=== PATIENT | male | born 1950 | race Caucasian/White ===

== ENCOUNTER → 2023-12-04 10:41 | Outpatient (REF) | payer MEDICARE, BC, SELFPAY | LOC: HWRAD 10:41 | PROVIDERS: ATTENDING PHYSICIAN Specialist; FAMILY PHYSICIAN Family Medicine; REFERRING PHYSICIAN Surgery | DX: C23 Malignant neoplasm of gallbladder (principal) | CPT/HCPCS: 71260; 74177; Q9967 ==

== ENCOUNTER → 2023-12-15 14:44 | Outpatient (REF) | payer MEDICARE, BC, SELFPAY ==
[2023-12-15 19:38] LABS: % Basophils 1.3 % (0-2); % Eosinophils 4.2 % (0-6); % Immature Granulocytes 1.1 % (0-0.5); % Lymphocytes 11.9 % (20.5-51.1); % Neutrophils 71.5 % (42.2-75.2); Absolute Basophils 0.1 10^3/uL (0-0.2); Absolute Eosinophils 0.4 10^3/uL (0-0.7); Absolute Immature Granulocytes 0.1 10^3/uL (0-0.05); Absolute Lymphocytes 1.1 10^3/uL (1.2-3.4); Absolute Monocytes 0.9 10^3/uL (0.1-0.6); Absolute Neutrophils 6.4 10^3/uL (1.4-6.5); Mean Corpuscular Hgb 27.5 pg (27.0-31.0); Mean Corpuscular Volume 88.7 fL (80.0-94.0); Mean Platelet Volume 12.7 fL (7.4-10.4); Nucleated Red Blood Cells % 0 % (-); Platelet Count 307 10^3/uL (130-400); Red Blood Cell Count 3.27 10^6/uL (4.70-6.10); Red Cell Dist. Width 15.9 % (11.5-14.5); White Blood Cell Count 8.9 10^3/uL (4.8-10.8)
== END ==
LOC: CLAB 14:44
PROVIDERS: ATTENDING PHYSICIAN Family Medicine
DX: C23 Malignant neoplasm of gallbladder (principal)
CPT/HCPCS: 36415; 85025

== ENCOUNTER → 2023-12-29 11:45 | Outpatient (REF) | payer MEDICARE, BC, SELFPAY | LOC: HWRAD 11:45 | PROVIDERS: ATTENDING PHYSICIAN Student in an Organized Health Care Education/Training Program; FAMILY PHYSICIAN Family Medicine; OTHER PHYSICIAN Specialist | DX: C24.0 Malignant neoplasm of extrahepatic bile duct (principal) | CPT/HCPCS: 74176 ==

== ENCOUNTER → 2023-12-30 06:55 | Outpatient (REF) | payer MEDICARE, BC, SELFPAY ==
[2023-12-30 09:33] LABS: ALT (SGPT) 15 U/L (0-50); AST (SGOT) 27 U/L (17-59); Alkaline Phosphatase 137 U/L (38-126); Blood Urea Nitrogen 19 mg/dl (9-20); Calcium 9.3 mg/dl (8.4-10.2); Carbon Dioxide 30 mmol/L (22-30); Chloride 99 mmol/L (98-107); Glucose 166 mg/dl (70-99); HDL Cholesterol 67 mg/dl; LDL Cholesterol, Calculated 87 mg/dl; Potassium 4.9 mmol/L (3.5-5.1); Sodium 134 mmol/L (135-145); Total Bilirubin 0.9 mg/dl (0.2-1.3); Total Cholesterol 177 mg/dl (50-199); Total Protein 6.9 g/dl (6.3-8.2); Triglyceride 115 mg/dl (10-149); Very Low Density Lipoprotein 23 mg/dl (0-30); eGFR > 60.00
[2023-12-30 11:52] LABS: Glycohemoglobin (HgbA1c) 7.8 % (4.0-5.6)
== END ==
LOC: HWLAB 06:55
PROVIDERS: ATTENDING PHYSICIAN Family Medicine; REFERRING PHYSICIAN Specialist
DX: E11.69 Type 2 diabetes mellitus with other specified complication (principal); E78.2 Mixed hyperlipidemia
CPT/HCPCS: 36415; 80053; 80061; 83036

== ENCOUNTER → 2024-02-09 15:25 | Outpatient (REF) | payer MEDICARE, BC, SELFPAY | LOC: RAD 15:25 | PROVIDERS: ATTENDING PHYSICIAN Family Medicine; REFERRING PHYSICIAN Registered Nurse Oncology | DX: M79.605 Pain in left leg (principal); R60.0 Localized edema; M25.552 Pain in left hip; C23 Malignant neoplasm of gallbladder; C77.2 Secondary and unspecified malignant neoplasm of intra-abdominal lymph nodes | CPT/HCPCS: 73502; 93970 ==

== ENCOUNTER 2024-05-17 03:08 | Inpatient (IN) | payer MEDICARE, BC, SELFPAY ==
[2024-05-17] VITALS (76 sets, daily range): BP systolic 82–147; BP diastolic 36–87; BMI 26.3; BMI 26.5
--- NOTE | 2024-05-17 01:13 | ED.GENMED ---
History of Present Illness
General
Chief Complaint: Abdominal Symptoms
Source: patient
Exam Limitations: none
Time Seen by Provider: 05/17/24 01:00
History of Present Illness
History of Present Illness:
This is a 74 year old male that comes in by ambulance with c/o SOB. States that he started mid day with abd pain that got worse and worse. Then around the same time he started with some SOB but it was not that bad. States that he has a fever with
chills, SOB nausea, vomiting. Denies any chest pain, abd pain, diarrhea, headache, dizziness, urinary burning.
Past History
Past History
ED Past Medical History: Arrthythmia (Atrial fib), Cancer ([place]), GERD, HTN, Hypercholesterolemia, NIDDM, Psychiatric (Depression) and Other (Sleep apnea uses CPAP, Pericarditis, Kidney failure, Pulmonary edema, Ascites. Iron def anemia. )
ED Past Surgical History: Other (Deviated septum. Septoplasty, Turbinectomy, Stents X 2 in bile duct)
Social History
Tobacco: Non-smoker
Alcohol: None
Drug: None
Personal:
Living: with family
Review of Systems
Review of Systems
All Other Systems: ROS reviewed and negative except as documented in HPI and ROS
Constitutional: Reports fever and chills
EENT: Reports no symptoms
Respiratory: Reports trouble breathing; Denies cough
Cardiac: Denies chest pain
ABD/GI: Reports abdominal pain, nausea and vomiting; Denies diarrhea
: Reports no symptoms; Denies dysuria, frequency or urgency
Musculoskeletal: Reports no symptoms
Skin: Reports no symptoms
Neurological: Reports no symptoms; Denies dizzy or headache
Psychiatric: Reports no symptoms
Phy Exam
General Physical Exam
General Presentation: mild distress
General age: appears stated age
General Skin: warm and dry
General Habitus: elderly
General Mental: alert
General Hydration: appears well hydrated
ENT Exam
ENT Exam: TM's normal, pharynx normal and neck supple
Eye Exam
Eye Exam: EOMI
Cardiovascular Exam
Cardiovascular Exam: regular rate/rhythm and normal peripheral pulses
Pulmonary Exam
Pulmonary Exam: no rales, no crackles, no rhonchi, no wheezing, no cough and decreased breath sounds (at bases bilaterally, )
Gastrointestinal Exam
Gastrointestinal Exam: non tender, soft, no organomegaly, no pulsatile mass, non distended and other (No bowel sounds noted)
Musculoskeletal Exam
Musculoskeletal Exam: full ROM and edema (+2 pitting edema from feet into the thighs)
Skin Exam
Skin Exam: normal color, warm/dry, no rash and no petechia
Psychiatric Exam
Psychiatric Exam: normal mood/affect
Course
Orders/Labs/Results
Orders:
Orders
05/17/24 01:21
Complete Blood Count/With Diff Urgent
Comprehensive Metabolic Panel Urgent
D-Dimer Urgent
Lactic Acid Urgent
NT-proBNP Urgent
Troponin I Urgent
Blood Culture Urgent
LENNIE Source: Blood/Venous
Specimen Description:
05/17/24 01:45
0.9% Sodium Chloride 1000 ml [Nss] 2,000 ml IV BOLUS
05/17/24 02:02
CR Chest Portable - 1 View Urgent
Comment:
Reason For Exam: SOB
Reason Study Needs to be Portable: Unable to Transport
05/17/24 02:10
Piperacillin/Tazo 3.375 Gram [Zosyn] 3.375 gram in 50 ml IV NOW
Vancomycin 1 Gram/200 ml [Vancocin] 1 gram in 200 ml IV NOW
05/17/24 02:17
CT Chest Pe Study Urgent
Comment:
Reason For Exam: SOB, Elevated D-dimer
05/17/24 02:21
COVID-19 Antigen Urgent
Source: Nasal Swab
05/17/24 02:37
Procalcitonin Routine
PCT Algorithmm Indication: Respiratory
05/17/24 02:54
Admit/Transfer Patient As Directed
Co-Sign Provider:
Level of Care: Inpatient admission
Assign to:: ICU
Physician / Group: breny
Diagnosis: Severe sepsis, acute hypoxic RF, susect acute cholangitis, suspect asp PNA
Reason for Hospitalization: Severe sepsis, acute hypoxic RF, susect acute cholangitis, suspect asp PNA
Expected length of stay greater than two midnights?: Yes
ELOS- Estimated Length of Stay in days: 6
I certify the patient meets the requirements for IP care: Yes
PRN Pain Medication Management As Directed
May give lesser potent ordered pain med per pt: Yes
preference::
Protocol:: Medication orders for pain may be administered in a
manner that supports deferring to patient preference
when the pt is:
- Requesting an ordered lesser potent pain medication.
Least to most potent pain medications are defined
as: acetaminophen < NSAID < tramadol < opioids
(morphine, oxycodone, hydromorphone).
- Requesting a lesser dose of the same medication IF
ORDERED.
- Requesting a less intrusive route of administration
if both routes are prescribed by the provider (PO <
IV).
05/17/24 02:56
Code Status As Directed
Resuscitation Status: Full Code
05/17/24 05:40
Dextrose 50%-Water [Dextrose 50% Syringe] 12.5 grams IV P80BMEC PRN
Glucagon [GlucaGen] 1 mg IM PRN PRN
Lactated Ringers [Lr] 1,000 ml IV 100 mls/hr
VANCOMYCIN Pharmacy to Dose [VANCOCIN Pharmacy to Dose] 1 each Pharmacy To Prepare [Call Pharmacy To Prepare] 0 ml IV PER PROTOCOL
05/17/24 05:40
Consult Notification Routine
Specialty to Notify: Gastroenterology
Date consulting provider notified: 05/17/24
Time consulting provider notified: 08:19
Notified:: Provider
Consult Notification Routine
Specialty to Notify: Infectious Disease
Date consulting provider notified: 05/17/24
Time consulting provider notified: 08:18
Notified:: Provider
Consult Notification Routine
Specialty to Notify: Asset Liability Analyst
Date consulting provider notified: 05/17/24
Time consulting provider notified: 08:19
Notified:: Provider
GASTROINTESTINAL CONSULT Routine
Consulting Provider: Lang [place]
Was physician already notified: No
Reason for consult: Severe sepsis, acute hypoxic RF, susect acute cholangitis, suspect asp PNA
INFECTIOUS DISEASE CONSULT Routine
Consulting Provider: Efe Lama
Was physician already notified: No
Reason for consult: Severe sepsis, acute hypoxic RF, susect acute cholangitis, suspect asp PNA
Asset Liability Analyst Consult Routine
Consulting Provider: Yousif Smith
Was physician already notified: No
Reason for consult: Severe sepsis, acute hypoxic RF, susect acute cholangitis, suspect asp PNA
Activity As Directed
Activity Level: With Assistance
Bedside Glucose Monitoring As Directed
Frequency: AC&HS
Additional Instructions:: Change to q6h if pt on TPN, tube feeding or not eating
Intake/ Output As Directed
Frequency: Per unit guidelines
Pneumatic Compression Sleeves As Directed
Type: Knee high
Vital Signs As Directed
Frequency: Per unit guidelines
Weight As Directed
Frequency: Daily
DX Deep Vein Thrombosis Video Routine
05/17/24 05:53
Type+Screen IN AM
Glycohemoglobin (HgbA1c) IN AM
Lactic Acid Q4H
Comment: repeat q4 hours x 4 or until less than 2 mmol/L
05/17/24 Breakfast
Clear Liquid
At Your Request: Full Participation
05/17/24 07:30
Insulin Aspart Corrective Low [Novolog Flexpen-Low Resistance] See Protocol SC AC
05/17/24 10:00
Piperacillin/Tazo 3.375 Gram [Zosyn] 3.375 gram in 50 ml IV Q6H
Abnormal Lab Results
05/17/24 05/17/24
:21 02:37
WBC 16.1 H 10^3/uL
(4.8-10.8)
RBC 2.72 L 10^6/uL
(4.70-6.10)
Hgb 8.4 L g/dL
(13.0-18.0)
Hct 25.4 L %
(39.0-52.0)
RDW 19.8 H %
(11.5-14.5)
Plt Count 104 L 10^3/uL
(130-400)
MPV 11.7 H fL
(7.4-10.4)
Abs Immat Gran (auto) 0.3 H 10^3/uL
(0-0.05)
Absolute Neuts (auto) 15.0 H 10^3/uL
(1.4-6.5)
Absolute Lymphs (auto) 0.3 L 10^3/uL
(1.2-3.4)
Immature Gran % 1.6 H %
(0-0.5)
Neutrophils % 93.0 H %
(42.2-75.2)
Lymphocytes % 1.7 L %
(20.5-51.1)
D-Dimer > 20.00 H ug/mlFEU
(0.00-0.50)
BUN 26 H mg/dl
(9-20)
Glucose 130 H mg/dl
(70-99)
Lactic Acid 3.1 H mmol/L
(0.7-2.0)
Total Bilirubin 2.5 H mg/dl
(0.2-1.3)
AST 381 H U/L
(17-59)
ALT 165 H U/L
(0-50)
Alkaline Phosphatase > 2400 H U/L
(38-126)
Total Protein 5.6 L g/dl
(6.3-8.2)
Albumin 2.9 L g/dl
(3.5-5.0)
Procalcitonin 0.89 H ng/ml
(0.0-0.25)
05/17/24 01:21
05/17/24 01:21
Leukocytosis, H/H low. Thrombocytopenia, Dehydration. Glucose nonfasting. Lactic acid elevated at 3.1, Total medhat elevation. AST/ALT elevation. Alk phos >2400. Total protein low. Albumin low. D-dimer >20.00, Troponin <0.012, Pro-BNP 7260
Vital Signs
Initial and Last Documented VS:
Initial Vital Signs
Temp Pulse Resp BP Pulse Ox
100.4 F H 110 24 124/66 94
05/17/24 01:03 05/17/24 01:03 05/17/24 01:03 05/17/24 01:03 05/17/24 01:03
Last Documented Vital Signs
Temp Pulse Resp BP Pulse Ox
98.0 F 70 29 88/36 96
05/17/24 15:50 05/17/24 17:02 05/17/24 17:02 05/17/24 17:02 05/17/24 17:02
MDM/Problems Addressed
Differential Diagnosis Includes:
PNA. Pulmonary edema, PE
MDM/Problems Addressed:
This is a 74 year old male that comes in with c/o SOB. States that he had abd pain earlier today and this continued to get worse. Then he became SOB.
Will get labs. Chest x-ray. If D-dimer positive will get CT chest.
Chronic conditions affecting care:
Pulmonary edema,
Chronic conditions affecting care: Cancer
Acute Exacerbation and/or Progression of Chronic Illness: Cancer
*Radiology
Radiology exam reviewed: preliminary read by ED provider (Chest- Left and right Pneumonia with increased vascular congestion) and radiology read reviewed (Chest- CT-No evidence of pulmonary embolism. Moderate bilaeral pleural effusion with
associated compressive atelectasis. Mild pulmonary interstitial and alveolar edema. )
*Pulse Oximetry
Patient hypoxic: no (100% nonrebreather)
*[employer] Interpretation
Rate: tachycardiac
Heart Rate: 108
*Critical Care Note
Total Time (30-74mins, 75-104mins- exclusive of procedures): Not Applicable
ED Attending Note
-
Portions of this chart may have been created with voice recognition software.� Occasional wrong word or��sound alike� substitutions may have occurred due to the inherent limitations of voice recognition software.
Discharge Plan
Departure
Patient Disposition: Admit
Date of Disposition: 05/17/24
Time of Disposition: 02:41
Admit to: Telemetry
Presentation/result/management discussed w/ accepting MD/DO: Hospitalist
Patient with high blood pressure during this ER visit?: No
Condition: Good
Covid-19: Negative COVID-19
Discharge Problem:
Bilateral pneumonia, Elevated liver enzymes
Interventions
Interventions:
*Risk Screen - Suicide Last Done: 05/17/24 01:03
*General Assessment Last Done: 05/17/24 01:12
*Neglect/Abuse Screening Last Done: 05/17/24 01:12
*ED COVID-19 Vaccine History Last Done: 05/17/24 01:12
*Nursing Disposition Last Done: 05/17/24 05:38
KP-Zbhchs-Qpgmatbgrs Assessment Last Done: 05/17/24 01:45
Discharge Date and Time
Discharge Date/Time: 05/17/24 05:48
[2024-05-17 01:36] LABS: % Basophils 0.1 % (0-2); % Eosinophils 0.2 % (0-6); % Immature Granulocytes 1.6 % (0-0.5); % Lymphocytes 1.7 % (20.5-51.1); % Monocytes 3.4 % (1.7-9.3); Absolute Immature Granulocytes 0.3 10^3/uL (0-0.05); Absolute Lymphocytes 0.3 10^3/uL (1.2-3.4); Absolute Monocytes 0.5 10^3/uL (0.1-0.6); Hematocrit 25.4 % (39.0-52.0); Hemoglobin 8.4 g/dL (13.0-18.0); Mean Corp Hgb Conc. 33.1 g/dL (33.0-37.0); Mean Corpuscular Hgb 30.9 pg (27.0-31.0); Mean Corpuscular Volume 93.4 fL (80.0-94.0); Mean Platelet Volume 11.7 fL (7.4-10.4); Nucleated Red Blood Cells % 0 % (-); Platelet Count 104 10^3/uL (130-400); Red Blood Cell Count 2.72 10^6/uL (4.70-6.10); Red Cell Dist. Width 19.8 % (11.5-14.5); White Blood Cell Count 16.1 10^3/uL (4.8-10.8)
[2024-05-17 01:42] LABS: Lactic Acid 3.1 mmol/L (0.7-2.0)
[2024-05-17 01:43] LABS: ALT (SGPT) 165 U/L (0-50); AST (SGOT) 381 U/L (17-59); Albumin 2.9 g/dl (3.5-5.0); Blood Urea Nitrogen 26 mg/dl (9-20); Calcium 8.4 mg/dl (8.4-10.2); Carbon Dioxide 30 mmol/L (22-30); Chloride 100 mmol/L (98-107); Estimated Creatinine Clearance 54 ml/min; Glucose 130 mg/dl (70-99); Potassium 4.4 mmol/L (3.5-5.1); Sodium 137 mmol/L (135-145); Total Bilirubin 2.5 mg/dl (0.2-1.3); Total Protein 5.6 g/dl (6.3-8.2); eGFR > 60.00
[2024-05-17 01:52] LABS: Alkaline Phosphatase > 2400 U/L (38-126)
[2024-05-17 01:54] LABS: NT-proBNP 7260 pg/ml; Troponin I 0.012 ng/ml
[2024-05-17 01:59] LABS: D-Dimer > 20.00 ug/mlFEU (0.00-0.50)
[2024-05-17] MEDS: NSS 2000 IV (02:00)
[2024-05-17] MEDS: ZOSYN IV (02:24)
[2024-05-17] MEDS: VANCOCIN 200 IV ×2 (02:25→07:11)
--- NOTE | 2024-05-17 02:47 | HPS.HSE ---
Addendum entered and electronically signed by Shabbir Ga MD 05/17/24 04:22:
CT suggest mild interstitial edema and alveolar pulmonary edema
Significantly elevated pro BNP
Acute hypoxic RF require MFO2
Suspect acute HF unknown type
- IV Lasix 20 times once and observe POx
- f/u POx and wean O2 as able
- ECHO in AM
- DCA card consult
Addendum entered and electronically signed by Shabbir Ga MD 05/17/24 04:13:
CTC PE study
- No PE
- moderate b/l pleural effusion with compressive atelectasis
- mild interstitial edema and alveolar pulmonary edema
Original Note:
Family Physician
-
Family Physician: Lang Cochran
Chief Complaint
-
N/V/ SOB
History of Present Illness
HPI
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
SOB and acute hypoxic RF
- acute onset N/V and abdominal pain at SNF
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
- NRM --> POx 100 %
- Reports Fever with chills
At ER:
T100.4 RR24 POx 94 on MFO2 12 L HR 110 BP 125/65
BCx sent then IV vanco and Zosyn plus IV NS
ROS
Denies any chest pain, abd pain, diarrhea, headache, dizziness, urinary burning
Medical History
Past Medical History
Past Medical History: Reports Other
Additional Past Medical History:
Hypertension
DM-II
J CARLOS
Pericarditis
Anxiety / Depression
Past Surgical History: Reports Other
Additional Past Surgical History:
Nasal Turbinate Surgery
Trigger Finger Release
Social History
Tobacco: Non-smoker
Alcohol: None
Drug: None
Personal:
Living: With Family
Family History
Family History: Not pertinent
Allergies / Home Medications
Allergies reflects when Allergies were last updated in [facility].
Home Medications with original date entered in [facility]
Allergy/Medication List:
Allergies
Allergy/AdvReac Type Severity Reaction Status Date / Time
ibuprofen Allergy abdominal Verified 10/13/23 17:25
pain
NSAIDS (Non-Steroidal Allergy Unknown Verified 10/13/23 17:25
Anti-Inflamma
Home Medications
pravastatin 40 mg tablet 40 mg PO HS High Cholesterol 09/27/09
duloxetine 20 mg capsule,delayed release (Cymbalta) 20 mg PO DAILY Depression 09/20/23
gabapentin 300 mg capsule 600 mg PO HS Neurological Condition 09/20/23
glipizide 2.5 mg tablet 2.5 mg PO DAILY Diabetes 09/20/23
aspirin 81 mg tablet,delayed release 81 mg PO DAILY 09/23/23
glipizide 2.5 mg tablet, extended release 24 hr 5 mg PO QPM 09/23/23
lisinopril 5 mg tablet 5 mg PO DAILY 09/23/23
metformin 500 mg tablet,extended release 24 hr 1,000 mg PO BID@0800,1700 09/23/23
pioglitazone 15 mg tablet (Actos) 15 mg PO DAILY 09/23/23
multivitamin 1 mg PO DAILY 10/13/23
Review of Systems
-
Constitutional: Reports Fever and Chills
EENT: Reports No Symptoms
Respiratory: Reports No Symptoms
Cardiac: Reports No Symptoms
Abdomen/GI: Reports See HPI, Abdominal Pain, Nausea and Vomiting
: Reports No Symptoms
Musculoskeletal: Reports No Symptoms
Skin: Reports No Symptoms
Neurological: Reports No Symptoms
Endocrine: Reports No Symptoms
Hematologic/Lymphatic: Reports No Symptoms
Psych: Reports No Symptoms
Physical Exam
Vital Signs
Vital Signs
Temp Pulse Resp BP Pulse Ox
100.4 F H 101 25 124/66 100
05/17/24 01:03 05/17/24 02:14 05/17/24 02:14 05/17/24 01:03 05/17/24 02:14
Physical Exam
General: Well Developed and Conversant
HEENT: Moist mucous membranes
Respiratory: Clear and Other (PORT at Lt upper chest ); No Wheezes, Rales or Rhonchi
Cardiac: S1/S2 and Regular Rhythm
Breast: Deferred by me
GI: Soft, Non Tender and Non Distended
Genito-urinary: Deferred by me
Musculoskeletal: No Edema
Skin: Warm and Dry
Neuro: AO x 3
Psych: Calm
Laboratory Results
-
05/17/24 01:21
05/17/24 01:21
Laboratory Results
Lactic Acid 3.1 mmol/L (0.7-2.0) H 05/17/24 01:21
Total Bilirubin 2.5 mg/dl (0.2-1.3) H 05/17/24 01:21
AST 381 U/L (17-59) H 05/17/24 01:21
ALT 165 U/L (0-50) H 05/17/24 01:21
Alkaline Phosphatase > 2400 U/L (38-126) H 05/17/24 01:21
Troponin I 0.012 ng/ml 05/17/24 01:21
Data Reviewed
-
CT Scan: Discussed with Physician
Lab Data: Labs Reviewed by me
Old Records: Reviewed
Impression/Plan
-
Reviewed VS: T100.4 RR24 POx 94 on MFO2 12 L HR 110 BP 125/65
Data
WCC 16s
Hgb 8.4 - baseline 9s-10s
Plt 104 -baseline 150s
DD > 20
LA 3.1
Pending PCT
TB 2.5
AST 381 - 27 on 12/30/23 but 200s in 2022
AST 165 - 15 on 12/30/23 but mid 200s in 2022
AKP > 2400 340s on 12/30/23
NEG TPNI
pro BNP 7260
BUN 26
nl eGFR > 60
Pending Covid
CXR my view R LL PNA ?
Pending CTC PE study
Last hospitalist admission: 10/13/23 - 10/17/23 PDX:
IR percutaneous cholecystotomy drain placement
ERCP/stone extraction, stent placement and biopsy.
ASSESSMENT & PLAN
Pending Rx reconciliation
Clinically c/w severe sepsis Plus or minus bacteremia
Diff origins: acute cholangitis , possible PNA @ [facility] due to aspiration from acute emesis
No prior data MRS screen
- check PCT
- BC xsent
- cont. MFO2
- agree with IV vancomycin & Zosyn
- LR IVF
- Clear and ADAT
- ID consult
Acute hypoxic RF require MFO2; suspect mutfactorial origin
Significant D Dimer likely due to CCA
- Agree with CTC PE study
- Pul/ICU consult
Abn LFTS suspect cholestatic pastern due to acute cholangitis
HX Biliary stent
Underlying cholangio CA (CCA)
- Clear and IVF
- Trend LFts
- GI consult
Associated thrombocytopenia with worsening ACDz due to severe sepsis
- Trend CBC
At rsik for septic shock
Benign Hypertension
- held lisinopril
DMT2
- Hold PO medications acutely.
- add Low SSI
DVT Px: SCD
Code: Fulll code
ICU
Total Critical Care Time_55 ___ minutes.
I was immediately available to the patient and staff. I personally examined, reviewed labs, diagnostic images/reports, interpretations, treatment plans, discussed patient care with other providers and family or caregivers (if patient is unable
to make decisions), entered orders as appropriate and documented the medical record.
[2024-05-17 03:06] LABS: COVID-19 Antigen Negative (Negative)
[2024-05-17] MEDS: ZOSYN 50 IV ×4 (03:35→21:08)
[2024-05-17] MEDS: LASIX 20 MG IV (05:01)
--- NOTE | 2024-05-17 06:00 | W.PN.SEPSIS ---
Sepsis
Vital Signs
Temp Pulse Resp BP Pulse Ox
98.1 F 98 16 121/51 80
05/17/24 03:35 05/17/24 05:31 05/17/24 05:31 05/17/24 05:31 05/17/24 05:31
Physical Exam
Physical Exam:
A focused exam was performed after fluid resuscitation.
Capillary Refill
Bilateral Lower Extremity:
Krunal Time: Less than 3 sec
Pulse Evaluation
Bilateral Dorsalis Pedis:
Pulse Evaluation: Present
--- NOTE | 2024-05-17 06:05 | W.PN.UPDATE ---
Update Note
Progress Note Update
2220 Increased oxygen needs overnight, started on high flow nasal cannula. 0415 notify by bedside nurse hemodynamics declining, (vasopressin added) Morning labs showed increased in LFTs and WBC, hgb drop to 7.0, type and sent, trending HH q 6, no
signs of bleeding noted. Hx of anemia.
[2024-05-17 06:17] LABS: INR 1.26; PT 15.7 Sec (11.4-14.6)
[2024-05-17 06:18] LABS: Lactic Acid 1.7 mmol/L (0.7-2.0)
[2024-05-17 06:19] LABS: Procalcitonin 0.89 ng/ml (0.0-0.25)
[2024-05-17 06:30] LABS: APTT 30.5 Sec (23.4-35.0)
--- NOTE | 2024-05-17 07:09 | PTCARENOTE ---
Received patient AAOx3, following commands, denying pain. Normal sinus, 80s-90s. BP 90s-100s/50s-70s. Normothermic. +3 b/l pitting lower extremity edema. SCDs on. On 12 liters midflow, saturating 100%. Lung sounds coarse anteriorly and decreased
posteriorly. Abdomen soft, round, positive bowel sounds. Bruising on lower abdomen POA. Voided 200 ml in urinal of clear, yellow urine. Last BM 2 days ago. MASD on buttocks, barrier ointment applied. Left lateral butt unstageable and stage 2 on left
heel POA, wound consulted. CHG bath done, labs sent. Right subcutaneous port accessed, patent, WNL. Right forearm #20 patent, WNL. Call reilly within reach.
--- NOTE | 2024-05-17 07:28 | CON.INTV ---
Consultation
Consultation Request
Date/Time Consultation Requested: 05/17/2024-8 AM
Date/Time Consultation Performed: 05/17/2024-8 AM
Requesting Provider: Hospitalist
Performing Provider: Dr. Fofana
Reason for Consultation: Hypoxemia and critical care management
Medical History
-
Chief Complaint: Shortness of breath and weakness
History of Present Illness:
74-year-old male with history of atrial fibrillation, hypertension, sleep apnea, restrictive lung disease and diabetes with a recent diagnosis of cholangiocarcinoma with stents status post chemo recently complicated by infection and returns with
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 He is feeling improved, however, still feels very weak. Nausea is improved. Blood pressure is improved with
fluids. He denies any shortness of breath at rest, chest pain, chest congestion, pleurisy, mopped assist, abdominal pain, nausea, current vomiting, lower extremity swelling beyond his baseline, or new weakness. He has generalized weakness. He
uses a CPAP at home.
Past Medical History
Past Medical History: None (Cholangiocarcinoma. Atrial fibrillation. Hypertension. Hyperlipidemia. Diabetes. Depression. J CARLOS on CPAP. Restrictive lung disease. Decreased diffusing capacity. Postnasal drip. Anemia. Septoplasty. Biliary
stenting x 2.)
Social History
Tobacco: Non-smoker
Alcohol: None
Drug: None
Personal:
Living: With Family
Employment: Retired ([employer]-emigrated from [facility])
Occupational Exposures: No known asbestos exposure
Environmental Exposures: No known tuberculosis exposure
Family History
Family History: Other (Mother breast cancer diabetes and CAD)
Allergies / Home Medications
Allergies
Allergy/AdvReac Type Severity Reaction Status Date / Time
ibuprofen Allergy abdominal Verified 10/13/23 23:27
pain
NSAIDS (Non-Steroidal Allergy Unknown Verified 10/13/23 23:27
Anti-Inflamma
Home Medications
�Medication �Instructions �Recorded �Confirmed �Last Taken �Type
pravastatin 40 mg tablet 40 mg PO QPM High Cholesterol 09/27/09 05/17/24 10/12/23 History
duloxetine 20 mg capsule,delayed 20 mg PO BID Depression 09/20/23 05/17/24 11/12/23 History
release (Cymbalta)
therapeutic multivitamin 1 tab PO DAILY 10/13/23 05/17/24 10/12/23 History
amiodarone 200 mg tablet 200 mg PO DAILY 05/17/24 05/17/24 Unknown History
carvedilol 12.5 mg tablet 12.5 mg PO BID 05/17/24 05/17/24 Unknown History
ferrous sulfate 325 mg (65 mg 325 mg PO DAILY 05/17/24 05/17/24 Unknown History
iron) tablet
furosemide 40 mg tablet (Lasix) 40 mg PO DAILY 05/17/24 05/17/24 Unknown History
hydralazine 10 mg tablet 10 mg PO TID 05/17/24 05/17/24 Unknown History
insulin glargine 100 unit/mL (3 14 unit SC HS 05/17/24 05/17/24 Unknown History
mL) subcutaneous pen
insulin lispro 100 unit/mL 1 sliding scale dose SC DIRECTED 05/17/24 05/17/24 Unknown History
subcutaneous pen
ipratropium bromide 0.02 % 2.5 ml inhalation Q6H PRN SOB 05/17/24 05/17/24 Unknown History
solution for inhalation
melatonin 3 mg tablet 3 mg PO HS 05/17/24 05/17/24 Unknown History
pantoprazole 20 mg tablet,delayed 40 mg PO DAILY 05/17/24 05/17/24 Unknown History
release
Review of Systems
-
Unable to Obtain full review of systems at this time due to: Other (Per HPI)
Vitals / Labs / Diagnostic Testing
Vital Signs
Temp Pulse Resp BP Pulse Ox
97.9 F 84 20 108/51 95
05/17/24 06:44 05/17/24 06:30 05/17/24 06:30 05/17/24 06:13 05/17/24 07:22
Lab Data
05/17/24 01:21
05/17/24 01:21
Laboratory Results
05/17/24
05:53
PT 15.7 H
INR 1.26
APTT 30.5
Diagnostic Testing:
Physical Exam
-
Exam:
Well-nourished and well-developed in no apparent distress
HEENT-atraumatic, normocephalic
Neck-supple, no JVD, no bruit
Heart-regular rate and rhythm-no murmurs, rubs or gallops
Chest-clear to auscultation, no wheezes, crackles, decreased breath sounds at the bases
Back-no tenderness
Abdomen-soft, nontender, nondistended, no hepatosplenomegaly
Extremities-no cyanosis, clubbing, +1 edema
Integument-intact, no rashes, lesions or ecchymosis
Neurology-alert and oriented, nonfocal motor and sensory exam
Assessment
-
74-year-old male with history of atrial fibrillation, hypertension, sleep apnea, restrictive lung disease and diabetes with a recent diagnosis of cholangiocarcinoma with stents status post chemo recently complicated by infection and returns with
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
Sepsis with shock unresponsive to fluids requiring pressors
Leukocytosis-WBC 16.1
CHF with reduced EF
Bilateral right greater than left pleural effusion
Anemia-hemoglobin 8.4-normocytic
Thrombocytopenia-platelet 104
Mild hyperglycemia
Elevated LFTs
Hypoalbuminemia
Conditions present prior to admission:
Cholangiocarcinoma.
Atrial fibrillation.
Hypertension.
Hyperlipidemia.
Diabetes.
Depression.
J CARLOS on CPAP.
Restrictive lung disease.
Decreased diffusing capacity.
Postnasal drip.
Anemia.
Septoplasty. Biliary stenting x 2.
Plan
Admit patient to medical intensive care unit for persistent hypotension despite fluid resuscitation requiring pressors
Supplement oxygen as needed
High flow oxygen if needed
BiPAP if necessary
Intubate and mechanically ventilate if necessary
Aspiration precautions
Nebulizers if needed
Obtain cultures
Empiric antibiotics
Consider Infectious disease consultation
Monitor leukocytosis
Fluid resuscitation with 30 mL/kg crystalloid-preferably lactated ringer-(less SUDHIR) with subsequent boluses as needed
Monitor lactate
Follow CVP if possible
Attempt noninvasive bedside tissue perfusion evaluation to see if fluid bolus responsive
Measure pulse pressure and stroke volume variation if patient on ventilator, passively breathing without arrhythmia and with temporary large tidal volume ventilation and if > 13% then likely fluid bolus responsive
If patient active then consider measuring bedside leg lift for 3 minutes and if cardiac output increases or if there is a rise of 2-4 on end-tidal CO2 then fluid bolus
If bedside ultrasound available then measure IVC diameter variation to evaluate for fluid bolus responsiveness
Begin pressors as needed for MAP goal of 65-Norepinephrine first, then Vasopressin and consider Angiotensin II if continues to be hypotensive
Consider methylene blue if available-specific inhibitor of induced nitric oxide synthase iNOS and its downstream enzyme soluble guanylate cyclase-noninferiority study shown to reduce time to vasopressor discontinuation, decreased ICU length of stay,
hospital stay but no change in mortality-published Critical Care 01/06/2023
If persistently hypotensive then consider checking random cortisol-hydrocortisone if random less than 3, if 3-15 then consider ACTH stimulation test
If persistently hyperthermic then correcting hyperthermia can decrease pressor requirements, increased chances of reversal of shock and decrease mortality
Diuresis as tolerated
Check echocardiogram
Trend troponin
Monitor renal function, electrolytes, intake/output, lower extremity edema and weight
Replace electrolytes as needed
Thoracentesis-right and then consider left as well-diagnostic and therapeutic
Monitor blood sugar
Insulin supplementation as needed
Monitor LFTs
GI evaluation
DVT prophylaxis
Early nutrition if possible
Early mobilization/bedside range of motion
Outpatient oncology [id number] to resume chemotherapy once infections under control
Patient was last seen pulmonary/sleep disorders office 04/22/[address] Fofana and has a follow-up appointment 05/27/2024 at 1015 with Kae Garcia NP
Critical care statement: A total of 55 minutes of critical care time was provided for this patient today. This includes management of unstable vital signs, evaluation of the patient at bedside, reviewing the patient's pertinent medical records
including radiographs, pressor management, microbiology, laboratory evaluations, and discussion with primary team, consultants, pharmacy, nutrition, physical therapy, case management, charge nurse, critical care nursing, and respiratory therapy.
Diagnostic data:
Chest x-ray 05/17/2024-pulmonary edema with small bilateral pleural effusions
CT chest with PE protocol 10/24/20--no Pulmonary Embolism, no significant other abnormalities,Patient notified.
CT chest abdomen and pelvis 12/04/2023-multiple fluid collections in perihepatic region including collection within the gallbladder fossa, no evidence for metastatic disease in the chest abdomen or pelvis, mild prostate enlargement
Lower extremity ultrasound 02/09/2024-no evidence for lower extremity deep venous thrombosis
Stress echocardiogram 06/12/20--no EKG or echocardiographic evidence of myocardial ischemia, lightheadedness and shortness of breath with exercise which resolved in recovery, overall low to intermediate risk study.
Spirometry 09/20/20--FEV1 2.3 L-77%, FVC 2.92 L-71%, no significant BD response. Mild restriction.
PFT 11/10/20--FEV1 2.7 L-91%, FVC 3.3, 1 L-79%, TLC 68%, RV 45%, DLCO 83%. Mild restriction and mild reduction in diffusing capacity.
Spirometry 09/26/21-FEV1 2.29 L, 88%, FVC 2.78 L-80%, no significant BD response. Mild restriction.
PFT 11/14/22-FEV1 2.25 L-78%, FVC 2.5 L 69% , TLC 63%, RV 40%, DLCO 76%. Mild to moderate restriction and mild reduction in diffusing capacity
Spirometry 07/16/23-FEV1 2.2-91%, FVC 2.7-79%,No significant BD response. Mild restriction.
Originally diagnosed around 2006 PSG-AHI-20, desaturation hillary 86%, CPAP 9 cm
PSG 09/16/18--AHI-16.7, desaturation hillary 84%, 0.7% time <90% saturation.
Data Reviewed
-
PFT: Tracing personally visualized and interpreted and Report reviewed by me
EKG: Report reviewed by me
Radiology: Image personally visualized and interpreted and Report reviewed by me
CT Scan: Image personally visualized and interpreted and Report reviewed by me
Ultrasound: Report reviewed by me
Medical Tests (Nuc Med, Echo etc): Report reviewed by me
Labs: Labs reviewed by me
Old Records: Reviewed
Critical Care Time (in minutes): 55
--- NOTE | 2024-05-17 07:31 | W.PN.HOSP.TC ---
Today's Communication/Plan
-
see A/P
Assessment / Plan
Assessment / Plan
HPI: 74 yo M with [facility] ERCP/stone extraction, stent placement and biopsy Sep 2023, subsequently diagnosed with poorly differentiated adeno Ca / cholangiocarcinoma Oct 2023; p/w SOB.
A/P:
# Sepsis POA, source acute cholangitis vs possible PNA RLL due to aspiration from acute emesis
Procal elevated at 0.89
Follow blood culture
Follow CT chest and CXR formal report
Cont IV vancomycin & Zosyn
Cont IVF LR
Clears and ADAT
ID consult
# Acute hypoxic RF
Was on 12L NC, now down to 5L NC
CT PE neg for PE
# Elevated LFT suspect cholestatic pastern due to acute cholangitis
# HX Biliary stent
# Underlying cholangiocarcinoma
Clear and IVF
Trend LFT
GI consult
# Thrombocytopenia
# Suspect ACD
Trend CBC
# Benign Hypertension
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
# DMT2
Hold PO medications acutely.
add Low SSI
# h/o A flutter
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
DVT Px: SCD
Code: Full code
DW Biology Professor
DW RN
updated on the phone
total time spent 51 min
Anticipated Discharge: > 48 hours
Subjective/Interval History
-
Date of Service: May 17, 2024
Objective Data
-
Labs:
Laboratory Results
05/17/24 05/17/24
01:21 05:53
WBC 16.1 H
Hgb 8.4 L
Hct 25.4 L
Plt Count 104 L
PT 15.7 H
INR 1.26
APTT 30.5
Sodium 137
Potassium 4.4
Chloride 100
Carbon Dioxide 30
BUN 26 H
Creatinine 1.2
Glucose 130 H
Calcium 8.4
Total Bilirubin 2.5 H
AST 381 H
ALT 165 H
Alkaline Phosphatase > 2400 H
Vital Signs:
Vital Signs
Temp Pulse Resp BP Pulse Ox
36.6 C 84 20 108/51 95
05/17/24 06:44 05/17/24 06:30 05/17/24 06:30 05/17/24 06:13 05/17/24 07:22
I&O
05/16/24 05/17/24 05/18/24
06:59 06:59 06:59
Intake Total 200 / 200
Output Total 200 / 200
Balance -200 / -200 200 / 200
Review of Systems
-
All other systems: Reviewed and negative
Constitutional: Reports Weakness
Physical Exam
-
General: Well Developed, Well Nourished, Respiratory Distress, Conversant and Appears Chronically Ill
HEENT: Normocephalic, Atraumatic, Nose Appears Normal, Ears Appear Normal and Oxygen (5L NC)
Respiratory: Clear to Auscultation and Non Labored Respirations; Negative Accessory Resp Muscle Use
Cardiac: Regular Rhythm and S1/S2
GI: Soft, Nontender, Nondistended and Normal Bowel Sounds
Skin: Warm and Dry
Neuro: Awake, Alert and Oriented
Psych: Calm and Intact Judgement/Insight
Data Reviewed
-
Labs: Labs Reviewed by me
--- NOTE | 2024-05-17 07:42 | CON.ID ---
Consultation
-
Date/Time Consultation Requested: 05/17/2024 05:40
Date/Time Consultation Performed: 05/17/2024 07:35
Requesting Provider: Dr. Ga
Performing Provider: Dr. Lama
Reason for Consultation: Pneumonia, suspected cholangitis, clinical sepsis
Chief Complaint / Past History
History of Present Illness
Sebastian Villaseñor is a 74-year-old man with a significant past medical history of cholangiocarcinoma with stents in place being evaluated at the request of Dr. Ga in regards to sepsis. History is obtained from chart review, along with patient
interview. Patient presented to [facility] early this morning with complaints of abdominal pain that started yesterday that became increasingly worse. He also reports an episode of vomiting yesterday morning. Through the day, he
subsequently developed shortness of breath, along with fevers and chills, and worsening nausea and vomiting. Workup in the emergency room revealed a leukocytosis. Cultures have been obtained. The patient has been started on empiric antibiotics.
Patient has a significant past medical history of cholangiocarcinoma diagnosed in September 2023. He reports that he has been followed by oncology at [facility]. He previously was on chemotherapy, but was discontinued approximately 1 month ago
secondary to infection.
Past History
Additional Past Medical History:
A-fib
Cholangiocarcinoma
GERD
HTN
Dyslipidemia
NIDDM
Depression
Sleep apnea (on CPAP)
Hx pericarditis
Renal insufficiency
Ascites
Anemia
Additional Past Surgical History:
Septoplasty
Biliary stenting x 2
Allergy History:
ibuprofen Allergy (Verified 10/13/23 23:27)
abdominal pain
NSAIDS (Non-Steroidal Anti-Inflamma Allergy (Verified 10/13/23 23:27)
Unknown
Medications Reviewed: Yes
Current Antibiotics:
Vancomycin
Zosyn 3.375 g IV every 6 hours
Social History
Tobacco: Non-Smoker
Alcohol: None
Drug: None
Personal:
Living: With Family
Employment: Retired
Review of Systems
Vital Signs
Temp Pulse Resp BP Pulse Ox
98.4 F 84 20 108/51 95
05/17/24 07:32 05/17/24 06:30 05/17/24 06:30 05/17/24 06:13 05/17/24 07:22
Physical Exam
Physical Exam
Constitutional: Comfortable, Acutely Ill, Chronically Ill and Non-toxic
Head: Normocephalic
Eyes: Pupils Equal, Pupils Round, No Conjunctival Hemorrhage and Sclera Anicteric
Oral: No Thrush and No Ulcers
Lymph Nodes: Negative Lymphadenopathy
Cardiovascular: Regular Rate and S1/S2; Negative S3/S4
Pulmonary: Non Labored; Negative Wheezes or Rales
Gastrointestinal: Soft, Non Distended, Decreased Bowel Sounds, No Rebound and No Guarding
Extremities: Edema (Trace); Negative Cyanosis or Erythema
Neurological: Awake and Alert
Psychological: Calm
Lab / Diagnostic Study Results
05/17/24 01:21
05/17/24 01:21
Abs Immat Gran (auto) 0.3 10^3/uL (0-0.05) H 05/17/24 01:21
Absolute Neuts (auto) 15.0 10^3/uL (1.4-6.5) H 05/17/24 01:21
Absolute Lymphs (auto) 0.3 10^3/uL (1.2-3.4) L 05/17/24 01:21
Absolute Monos (auto) 0.5 10^3/uL (0.1-0.6) 05/17/24 01:21
Absolute Basos (auto) 0.0 10^3/uL (0-0.2) 05/17/24 01:21
Immature Gran % 1.6 % (0-0.5) H 05/17/24 01:21
Neutrophils % 93.0 % (42.2-75.2) H 05/17/24 01:21
Lymphocytes % 1.7 % (20.5-51.1) L 05/17/24 01:21
Monocytes % 3.4 % (1.7-9.3) 05/17/24 01:21
Eosinophils % 0.2 % (0-6) 05/17/24 01:21
Basophils % 0.1 % (0-2) 05/17/24 01:21
PT 15.7 Sec (11.4-14.6) H 05/17/24 05:53
INR 1.26 05/17/24 05:53
Lactic Acid Cancelled 05/17/24 17:40
Procalcitonin 0.89 ng/ml (0.0-0.25) H 05/17/24 02:37
Microbiology Results
Micro:
05/17/24 06:14 MRSA Screen - Pending
Nose
05/17/24 01:21 Blood Culture - Pending
Blood/Venous
Imaging:
CXR (05/17/2024): Official report pending. Film personally viewed and suggest a left upper lobe and right middle lobe infiltrate.
05/17/2024 CT chest: Official report pending. Bilateral pleural effusions noted. Significant atelectasis noted secondary to the effusions. Pneumonia suspected.
Assessment / Plan
Leukocytosis
Nausea/vomiting
Bilateral pleural effusions
Cholangiocarcinoma
Clinical sepsis
Transaminitis
Hyperbilirubinemia
A-fib
Cholangiocarcinoma
GERD
HTN
Dyslipidemia
NIDDM
Depression
Sleep apnea (on CPAP)
Hx pericarditis
Renal insufficiency
Ascites
Anemia
Recommendations:
Continue with empiric antibiotics (vancomycin/Zosyn).
Cultures have been obtained; will await further data to guide antimicrobial selection and de-escalation.
Monitor white count and temperature curve.
Await further input from Pulmonary/Critical care and Gastroenterology.
Await official read on pending studies.
--- NOTE | 2024-05-17 08:17 | PHA.VAN.IN ---
Assessment
- Assessment
Renal Function: Appears similar to baseline (SCR slightly elevated from 0.8-0.9)
Concomitant Antimicrobials: piperacillin/tazobactam
Plan
- Plan
Initial / Loading Dose: 2000mg 05/17 (1g 02:25 PLUS 1g 07:11)
Maintenance Regimen: dosing by level
Monitoring: random 05/18 0600
Will dose by level for now and follow SCR trend
Give additional 500mg x1 at 1800 as anticipate decrease in SCR & BUN and may require dose adjustment
Pharmacokinetics Vancomycin I
- -
Patient Age: 74
Patient Sex: Male
Vancomycin Day #: 1
Indication: Gi / Intra-Abdominal
Requesting Provider: Dr. Ga / Daina
Pertinent Antimicrobial Allergies:
no pertinent antibiotic allergies
Height / Weight:
Height 5 ft 10 in
Actual Weight 83.8 kg
Pertinent Past Medical History: cholangiocarcinoma, DM
- Vital Signs / Lab Results
Temp Pulse Resp BP Pulse Ox
98.4 F 86 32 100/51 89
05/17/24 07:32 05/17/24 08:00 05/17/24 08:00 05/17/24 08:00 05/17/24 08:00
Lab Results - Hematology
05/17/24
01:21
WBC 16.1 H
Lab Results - Chemistry
05/17/24
01:21
BUN 26 H
Creatinine 1.2
Estimated Creat Clear 54
Albumin 2.9 L
05/17/24 05/17/24 05/17/24
01:21 05:53 08:00
Lactic Acid 3.1 H 1.7 Cancelled
05/17/24 05/17/24 05/17/24
09:40 13:40 17:40
Lactic Acid Cancelled Cancelled Cancelled
[2024-05-17 08:33] LABS: Glucose - Point of Care 95 mg/dl (70-99)
[2024-05-17] MEDS: NOVOLOG FLEXPEN-LOW RESISTANCE SC ×3 (08:53→15:52)
[2024-05-17] MEDS: PACERONE 200 MG PO (09:18)
[2024-05-17] MEDS: CYMBALTA DELAYED RELEASE 20 MG PO ×2 (09:25→20:18)
--- NOTE | 2024-05-17 09:45 | CON.GI ---
Addendum entered and electronically signed by Lang Park MD 05/17/24 19:04:
I saw and evaluated the patient. I reviewed the resident�s note and agree with findings and plan as documented in the resident�s note.
74yo male admitted with SOB, abd pain. He has hx cholangioCA vs GB CA. Initially had cholecystitis managed with cholecystostomy tube. He developed jaundice despite tube upsizing and went on to have ERCP, EUS, spyglass dx'd with biliary stricture
bx adenocarcinoma. Went to [place] for rx- chemotherapy completed in February, stopped due to infections. More recently admitted to [facility] for cholangitis, sepsis. He had ERCP/stent exchange 04/26. Then developed GI bleeding undergoing repeat EGD/ERCP,
no bleeding seen, presumed due to recent sphincterotomy that stopped. He has hx intraabdominal abscesses treated with abx during other hospitalization.
LFTs this admission bili 2.5, AST 381, ALT 165, AP >2400. Review of pt's d/c summary indicates similar LFTs during recent [facility] admission. BCx positive Klebsiella. WBC 16.1. On zosyn, vanco, pressors. US shows small peripheral hepatic fluid
collection, possibly representing decrease in prior collection on prior CT vs new fluid collection/cyst
REC:
NPO
Abx
F/U LFTs, CBC
Requested records from [place]/[facility] to compare imaging, labs given his hx cholangitis, abd abscess. May need to exchange biliary stent even though just changed 04/26.
Check CT abd/pelvis when able to travel to Radiology
Original Note:
Consultation
-
Date/Time Consultation Performed: 05/17/24
Performing Provider: Seamus/Xavier
Reason for Consultation: abnormal LFTs, cholangiocarcinoma
Medical History
Chief Complaint / HPI
Chief Complaint: adenocarcinoma of gallbladder/bile duct
History of Present Illness:
Patient is 74 year old male with metastatic cholangiocarcinoma s/p partial cholecystectomy, sphincterotomy, stent placements, and recent hospitalization at [facility] (04/24-05/05), who presented from [facility] to the [place] ED via ambulance for
shortness of breath on 05/17/24. One day prior, he also reports abdominal discomfort, nausea, and vomiting which got progressively worse throughout the day.
History obtained from patient, his , medical records, and AVS/discharge summary from [place]. He was seen at in Sep 2023 for acute cholecystitis and choledocholithiasis, managed with perc nir drain and ERCP with stone extraction,
sphincterotomy, stent placement. Pathology confirmed cholangiocarcinoma, and he was referred to [facility] for further care where he had a partial cholecystectomy in Oct 2023. Chest/abdomen/pelvis CT was suspicious for abdominal metastases inclduing
prominent mesenteric root and peripancreatic lymph nodes and 1cm hypodense lesion in right lobe of liver. He was on chemotherapy with gemcitabine, cisplatin, durvalumab- last treatment was 03/03/24. His reports having to stop chemotherapy due to
infections. He has an appointment scheduled with Dr. Sebastian Mejia of [facility] 05/20/24 to discuss chemotherapy plans.
Per the AVS, his recent hospitalization at [facility] [place] was for acute cholangitis, sepsis, acute renale failure, severe hypoglycemia, hyperkalemia. At the time of his admission, labs were notable for AST 262, ALT 122, total bilirubin 3.7, alk phos
4108, lactate 3.5. He also had a recent history of multiple intraabdominal abscesses, for which he received an incomplete course of cipro/flagyl during a different hospitalization. He received zosyn, underwent ERCP with stent replacement on 04/26.
During the procedure, they observed gastric outlet obstruction, which was clinically asymptomatic. His hospital course was complicated by acute hypoxic respiratory failure, GI bleeding of unknown origin while on anticoagulation for afib/aflutter,
new heart failure with reduced EF (35%). He underwent repeat EGD/ERCP 05/04 which showed no signs of bleeding, and he declined further evaluation with capsule study. His anticoagulation, DVT ppx, ASA has been discontinued.
At the time of my evaluation, his primary complaint is back pain and shortness of breath. His abdominal pain has resolved. He denies black/bloody stools following his discharge from [facility]. He has occasional constipation, but he had a bowel
movement today that was soft. He has had decreased appetite, and reports foods do not taste good anymore. He tolerates mostly a liquid diet per his . He is not on any anticoagulation, aspirin, NSAIDs, Tylenol at this time.
Past Medical History
Past Medical History: Arrhythmias (atrial fibrillation), Cancer (metastatic cholangiocarcinoma), GERD, HTN, Hypercholesterolemia, NIDDM, Psychiatric (anxiety/depression) and Other (J CARLOS, pericarditis, kidney failure, pulmonary edema, ascites, iron
deficiency anemia)
Past Surgical History: Other (cholecystectomy 10/2023)
Social History
Tobacco: Non-Smoker
Alcohol: None
Drug: None
Personal:
Living: With Family (recently at [facility] following discharge from [facility])
Employment: Retired
Family History
Family History: Other (gallstones, gallbladder disease)
Allergies / Home Medications
Allergy/AdvReac Type Severity Reaction Status Date / Time
ibuprofen Allergy abdominal Verified 10/13/23 23:27
pain
NSAIDS (Non-Steroidal Allergy Unknown Verified 10/13/23 23:27
Anti-Inflamma
�Medication �Instructions �Recorded
pravastatin 40 mg tablet 40 mg PO QPM High Cholesterol 09/27/09
duloxetine 20 mg capsule,delayed 20 mg PO BID Depression 09/20/23
release (Cymbalta)
therapeutic multivitamin 1 tab PO DAILY 10/13/23
amiodarone 200 mg tablet 200 mg PO DAILY 05/17/24
carvedilol 12.5 mg tablet 12.5 mg PO BID 05/17/24
ferrous sulfate 325 mg (65 mg 325 mg PO DAILY 05/17/24
iron) tablet
furosemide 40 mg tablet (Lasix) 40 mg PO DAILY 05/17/24
hydralazine 10 mg tablet 10 mg PO TID 05/17/24
insulin glargine 100 unit/mL (3 14 unit SC HS 05/17/24
mL) subcutaneous pen
insulin lispro 100 unit/mL 1 sliding scale dose SC DIRECTED 05/17/24
subcutaneous pen
ipratropium bromide 0.02 % 2.5 ml inhalation Q6H PRN SOB 05/17/24
solution for inhalation
melatonin 3 mg tablet 3 mg PO HS 05/17/24
pantoprazole 20 mg tablet,delayed 40 mg PO DAILY 05/17/24
release
Review of Systems
-
All other systems: A 12 pt ROS was Negative except as stated above in HPI
Vital Signs
Temp Pulse Resp BP Pulse Ox
98.4 F 74 32 96/47 89
05/17/24 07:32 05/17/24 09:18 05/17/24 08:00 05/17/24 09:18 05/17/24 08:00
Physical Exam
Exam
General: Laying in bed with eye mask on. Uncomfortable, but no acute distress. Appears chronically ill.
Heart: Regular rate and rhythm.
Lungs: NC in place. Nonlabored breathing. Anterior lung juan clear and equal to auscultation.
GI: Normal bowel sounds present. Abdomen soft, nontender, nondistended. No rebound, rigidity, guarding.
Results
WBC 16.1 10^3/uL (4.8-10.8) H 05/17/24 01:21
Hgb 8.4 g/dL (13.0-18.0) L 05/17/24 01:21
Hct 25.4 % (39.0-52.0) L 05/17/24 01:21
MCV 93.4 fL (80.0-94.0) 05/17/24 01:21
Plt Count 104 10^3/uL (130-400) L 05/17/24 01:21
Absolute Neuts (auto) 15.0 10^3/uL (1.4-6.5) H 05/17/24 01:21
PT 15.7 Sec (11.4-14.6) H 05/17/24 05:53
INR 1.26 05/17/24 05:53
APTT 30.5 Sec (23.4-35.0) 05/17/24 05:53
Sodium 137 mmol/L (135-145) 05/17/24 01:21
Potassium 4.4 mmol/L (3.5-5.1) 05/17/24 01:21
Chloride 100 mmol/L (98-107) 05/17/24 01:21
Carbon Dioxide 30 mmol/L (22-30) 05/17/24 01:21
BUN 26 mg/dl (9-20) H 05/17/24 01:21
Creatinine 1.2 mg/dL (0.7-1.3) 05/17/24 01:21
Calcium 8.4 mg/dl (8.4-10.2) 05/17/24 01:21
Total Bilirubin 2.5 mg/dl (0.2-1.3) H 05/17/24 01:21
AST 381 U/L (17-59) H 05/17/24 01:21
ALT 165 U/L (0-50) H 05/17/24 01:21
Alkaline Phosphatase > 2400 U/L (38-126) H 05/17/24 01:21
Diagnostic Image Results:
Abdomen Ultrasound 05/17/24:
Findings:
Liver is unremarkable in echotexture without evidence of focal lesion. The portal and hepatic vessels appear grossly patent.
Gallbladder absent. Intrahepatic biliary ductal dilatation is noted. Slightly irregular fluid collection adjacent to the sugey hepatis measures approximately 2.0 x 2.7 x 1.9 cm.
Nonvisualization of the pancreas due to overlying bowel gas. Spleen measures 5.9 cm in length, which is not enlarged. No free fluid in the upper abdomen.
Right kidney measures 10.2 cm, and the left kidney measures 9.6 cm in length. No hydronephrosis.
Nonvisualization of the abdominal aorta and inferior vena cava due to overlying bowel gas.
IMPRESSION: Limited exam.
1. Small peripheral hepatic fluid collection possibly representing slight interval decrease in the previously seen collection on prior CT, versus new fluid collection/cyst.
2. Post cholecystectomy with associated mild diffuse intrahepatic biliary ductal dilatation.
Prior GI Procedures:
EGD:
04/2024 ([facility])- records unavailable at this time
EUS/ERCP:
09/2023 ([facility])- biliary stricture, choledocholithiasis, bile duct dilation; complete stone extraction via biliary sphincterotomy, balloon extraction; plastic stent placement; biopsies- poorly differentiated adenocarcinoma
Colonoscopy:
04/2021 ([facility])- diverticulosis, polyps- tubular adenoma
04/2018 ([facility])- polyps- tubular adenoma
Assessment / Plan
-
Patient is 74 year old male with past medical history of metastatic cholangiocarcinoma, afib/aflutter, cardiomyopathy, htn, hld, DM, J CARLOS, pericarditis who presented to [place] ED from [facility] 05/17 for shortness of breath. GI consulted for abnormal
LFTs and known cholangiocarcinoma. He was diagnosed via ERCP at , but primarily receives his care through [facility]. He was on chemotherapy with gemcitabine, cisplatin, durvalumab- last treatment was 03/03/24. He was recently hospitalized (04/24-05/05) for
acute cholangitis and sepsis at [facility]; hospitalization was also notable for acute renal failure, GI bleeding while on anticoagulation for afib/aflutter, HFrEF, gastric outlet obstruction, acute hypoxic respiratory failure. He underwent ERCP with
stent replacement on 04/26, and repeat EGD 05/04 to evaluate GIB which was unrevealing. At that time he declined further capsule study. He is no longer on any anticoagulation.
Impression:
Metastatic cholangiocarcinoma
- S/p partial cholecystectomy. S/p multiple EGD/ERCP with stent placements.
- Last chemotherapy 03/03/24- next appointment with oncologist planned for 05/20/24.
Abnormal LFTs- transaminitis, hyperbilirubinemia
- LFTs significantly elevated compared to December; however they are relatively stable with labs on admission to [facility] 04/24 per AVS.
- Unclear where baseline is, and if they are acutely elevated or if this is chronic.
?Intraabdominal abscess vs new fluid collection/cyst
- Abdominal US 05/17 showed slightly irregular fluid collection adjacent to sugey hepatis, 2.0x2.7x1.9 cm
Sepsis, requiring pressors
- blood cultures pending; prelim gram stain is gram neg bacilli
- ID following- empiric antibiotics with vanc/zosyn
Recent GI bleed, unknown origin
- Hgb 8.4 on admission; previously 9.0 in November
- No longer on anticoagulation
- Not actively bleeding
?Gastric outlet obstruction
Thrombocytopenia
Leukocytosis
Afib/aflutter
HFpEF- echo 05/17 EF 60-65%
R Pleural effusion- s/p IR thoracentesis of 1050mL 05/17; results pending
Acute hypoxic respiratory failure
GERD
HTN
Dyslipidemia
Depression
Renal insufficiency
Recommendations:
- Await pending blood culture results.
- Will consider ERCP with possible removal/replacement of biliary stent if needed to control possible source of sepsis. If sepsis is secondary to other source, ERCP/stenting may not be beneficial.
- Records requested from [facility], will review further when available.
- Consider additional abdominal imaging with CT to evaluate fluid collection vs intraabdominal abscess when patient is more stable.
- Further recommendations to come.
I saw in AVS that patient was DNR/DNI at the time of discharge from [facility], and he is full code here. I spoke with patient and his to clarify, and they confirmed that at this time he is full code at this time.
-
-
Thank you for consultation and allowing me to participate in the patient's care. Please call the [facility] GI physician during the after hours with any questions or concerns.
--- NOTE | 2024-05-17 09:58 | PTCARENOTE ---
BP 80/40's. MAP <65. Patient upgraded back to ICU level. Pressors to be initiated. Goal to diurese once BP improved.
--- NOTE | 2024-05-17 10:22 | CON.CAR ---
Addendum entered and electronically signed by Genet Newton DO 05/18/24 03:27:
I saw and examined the patient.
The Go Cart Mechanic's note was reviewed and I agree with the note.
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
cholecystectomy, hypertension, hyperlipidemia, diabetes mellitus type 2, J CARLOS on CPAP, and prior pericarditis. He is followed by [facility], Dr. Mejia, with last chemotherapy in February [cisplatin, durvalumab and gemcitabine];Chemo was
discontinued due to recurrent infection. He presents to ER for evaluation of shortness of breath and vomiting. He has been at [facility] following recent hospitalization at [facility] 04/24/2024 - 05/06/2024 where he was admitted with cholangitis,
new cardiomyopathy, and new atrial flutter. While there, he was started on amiodarone and spontaneously converted to sinus rhythm. He was attempted on anticoagulation, however developed GI bleed with this, requiring 2 units PRBCs. Anticoagulation
was stopped and he has had no recurrent arrhythmia noted since that time. During this hospitalization, he also had echocardiogram which showed new cardiomyopathy with EF 35%. There was consideration for stress testing during this hospitalization,
however it was not performed. He denies any chest pain. He reportedly had recurrent abdominal pain yesterday with episode of vomiting. Then this morning he had shortness of breath and came to ER for evaluation. In ER, he was found to have
concern for sepsis with hypotension now status post 2 L normal saline resuscitation and started on IV antibiotics. Cardiology consulted for concern for heart failure; he was given a single dose of IV Lasix in the emergency room. Available records
from his hospitalization at [place] earlier this month reviewed.
General: 74-year-old gentleman who appears chronically ill
HEENT: Mucous membranes moist, anicteric sclera
Respiratory: Bronchovesicular breath sounds decreased at the right base. Fine crackles bilaterally
Cardiac: Regular, positive S1-S2. No murmurs or rubs
Musculoskeletal: ++ edema
Skin: Port right anterior chest wall
Plan:
Patient is 74 year old male with metastatic cholangiocarcinoma s/p partial cholecystectomy, sphincterotomy, stent placements, and recent hospitalization at [place] (04/24-05/05), who presented from [facility] to the [place] ED via ambulance for
abdominal pain with vomiting and worsening shortness of breath on 05/17/24 with hypoxemic respiratory failure and hypotension being treated for presumed septic shock. Cardiology consulted for concern for heart failure
-Recent records reviewed and outpatient chart from recent hospitalization at [place]: Patient was found to have new atrial flutter started on amiodarone with spontaneous conversion. Anticoagulation for stroke risk reduction was attempted however
discontinued secondary to GI bleed requiring transfusion. He was discharged on amiodarone 200 mg daily following amiodarone load. Fortunately he is in sinus rhythm at this time on telemetry; will check a twelve-lead EKG. Continue amiodarone 200 mg
daily. Will hold retrial of anticoagulation at this time and review anticoagulation with with oncology and GI. Hemoglobin 8.4.
-Records from his hospitalization at [facility] earlier this month also report a new cardiomyopathy with LV ejection fraction reported 35% along with RV dysfunction and pulmonary hypertension. He was discharged on carvedilol, hydralazine, and
Lasix.
-A bedside 2D echocardiogram found LV size and systolic function recovered with an ejection fraction estimated 60 to 65%. His RV size and systolic function appear normal however his septum is flattened in systole consistent with RV pressure
overload. No significant valve pathology. No pericardial effusion. Pleural effusion is present. Estimated pulmonary artery pressure 70 with estimated right atrial pressure of 10 mmHg.
-Cardiomyopathy noted during his hospitalization at [place] earlier this month may have been related to tachyarrhythmia. Eventual consideration for ischemic evaluation once he has recovered from acute illness pending further discussions with
oncology. Will reach out to primary oncologist, Dr. Sebastian Mejia for records and to find out prognosis.
-No chest pain or pressure. Troponin 0.012
-CTA of the chest negative for PE or aortic pathology
-He appears volume overloaded status post 2 L saline resuscitation in the setting of sepsis
-His hemodynamics remain borderline with maps less than 65 and will start pressors to allow for further diuresis
-Once blood pressures have improved we will give an additional dose of IV Lasix and monitor I's and O's/urine output
-Case reviewed with automatic typewriter inspector and will also plan for IR thoracentesis of pleural effusion
-Carvedilol and hydralazine currently held due to hypotension
-Will follow with you
-Discussed with RN, automatic typewriter inspector. Discussed with patient's at bedside
Original Note:
Consultation
Consultation Request
Date/Time Consultation Requested: 05/17/2024
Date/Time Consultation Performed: 05/17/2024
Requesting Provider: Dr. Hobbs
Performing Provider: Dr. Newton
Reason for Consultation: CHF
Medical History
-
History of Present Illness:
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
mellitus type 2, J CARLOS on CPAP, and prior pericarditis. He presents to ER for evaluation of shortness of breath and vomiting. He has been at [facility] following recent hospitalization at [facility] 04/24/2024 - 05/06/2024 where he was admitted with
cholangitis, new cardiomyopathy, and new atrial flutter. While there, he was started on amiodarone and spontaneously converted to sinus rhythm. He was attempted on anticoagulation, however developed GI bleed with this, requiring 2 units PRBCs.
Anticoagulation was stopped and he has had no recurrent arrhythmia noted since that time. During this hospitalization, he also had echocardiogram which showed new cardiomyopathy with EF 35%. There was consideration for stress testing during this
hospitalization, however it was not performed. He denies any chest pain. He reportedly had recurrent abdominal pain yesterday with episode of vomiting. Then this morning he had shortness of breath and came to ER for evaluation. In ER, he was
found to have concern for sepsis as well as acute heart failure exacerbation. He was given a single dose of IV Lasix in the emergency room, and was also started on IV antibiotics. Cardiology consulted for evaluation. At this time, patient denies
any chest pain or shortness of breath, does admit to some weakness.
PMH:
Cardiomyopathy, EF 35%
Paroxysmal atrial flutter
Not anticoagulated due to GIB
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
s/p biliary stenting and partial cholecystectomy
Hypertension
Hyperlipidemia
DM2
J CARLSO on CPAP
h/o pericarditis
Past Medical History
Past Medical History: Other (In HPI)
Social History
Tobacco: Non-Smoker
Alcohol: None
Drug: None
Personal:
Living: With Family (Recently at [facility] following admission at [facility]. )
Employment: Retired
Family History
Family History: CAD, Cancer, Diabetes and Hypertension
Allergies / Home Medications
Allergy/AdvReac Type Severity Reaction Status Date / Time
ibuprofen Allergy abdominal Verified 10/13/23 23:27
pain
NSAIDS (Non-Steroidal Allergy Unknown Verified 10/13/23 23:27
Anti-Inflamma
�Medication �Instructions �Recorded �Confirmed �Type
pravastatin 40 mg tablet 40 mg PO QPM High Cholesterol 09/27/09 05/17/24 History
duloxetine 20 mg capsule,delayed 20 mg PO BID Depression 09/20/23 05/17/24 History
release (Cymbalta)
therapeutic multivitamin 1 tab PO DAILY 10/13/23 05/17/24 History
amiodarone 200 mg tablet 200 mg PO DAILY 05/17/24 05/17/24 History
carvedilol 12.5 mg tablet 12.5 mg PO BID 05/17/24 05/17/24 History
ferrous sulfate 325 mg (65 mg 325 mg PO DAILY 05/17/24 05/17/24 History
iron) tablet
furosemide 40 mg tablet (Lasix) 40 mg PO DAILY 05/17/24 05/17/24 History
hydralazine 10 mg tablet 10 mg PO TID 05/17/24 05/17/24 History
insulin glargine 100 unit/mL (3 14 unit SC HS 05/17/24 05/17/24 History
mL) subcutaneous pen
insulin lispro 100 unit/mL 1 sliding scale dose SC DIRECTED 05/17/24 05/17/24 History
subcutaneous pen
ipratropium bromide 0.02 % 2.5 ml inhalation Q6H PRN SOB 05/17/24 05/17/24 History
solution for inhalation
melatonin 3 mg tablet 3 mg PO HS 05/17/24 05/17/24 History
pantoprazole 20 mg tablet,delayed 40 mg PO DAILY 05/17/24 05/17/24 History
release
Review of Systems
-
History Source: Patient
All other systems: Negative unless noted
Physical Exam
Vital Signs
Temp Pulse Resp BP Pulse Ox
98.4 F 73 32 90/48 94
05/17/24 07:32 05/17/24 10:00 05/17/24 10:00 05/17/24 10:00 05/17/24 10:00
Lab Results
05/17/24 01:21
05/17/24 01:21
Troponin I 0.012 ng/ml 05/17/24 01:21
[place] Pept 7260 pg/ml 05/17/24 01:21
Physical Exam
General: Well Developed and Well Nourished
HEENT: Normocephalic, Anicteric and Moist Mucous Membranes
Respiratory: Other (Decreased at bases)
Cardiac: S1/S2 and Regular Rhythm
Musculoskeletal: No Clubbing, No Cyanosis and Edema
Skin: Warm and Dry
Neuro: AO x 3 and Nonfocal/Grossly Intact
Psych: Calm
Impression / Plan
-
PCP: Dr. Gordon
Jumpbasting Facing Baster: Dr. Gonsalez
Oncologist: Dr. Sebastian Mejia ([phone])
Impression:
Presented with SOB, N/V
Acute hypoxic respiratory failure
Acute HFrEF
Sepsis
Cardiomyopathy, EF 35%
Paroxysmal atrial flutter
Not anticoagulated due to GIB
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
s/p biliary stenting and partial cholecystectomy
Hypertension
Hyperlipidemia
DM2
J CARLOS on CPAP
h/o pericarditis
Echo 05/03/2024 @ [facility]: EF 35%, mild to moderate TR, moderate pulmonary hypertension, estimated PAP 54 mmHg
Echo 05/17/2024: Study completed, report pending
Plan:
-Presented with shortness of breath, weakness, and vomiting. Admitted with sepsis and evidence of acute heart failure exacerbation.
-Given a single dose of 20 mg IV Lasix in ER. Creatinine stable at 1.2.
-During recent hospitalization @ [facility], was placed on Coreg and hydralazine for medical therapy with plan to attempt initiation of Entresto as outpatient.
-Hypotensive this AM. Coreg and hydralazine on hold. Started on levo to allow for further diuresis.
-Will give an additional 20 mg of IV Lasix once blood pressures improve.
-Continue daily weights, I&O's.
-Atrial flutter noted during recent hospitalization at [facility]. Has been in sinus rhythm during this hospitalization on review of telemetry.
-Continue amiodarone 200 mg daily. Check EKG.
-Not anticoagulated due to recent GI bleed. Hgb 8.4. Continue to follow.
-Cardiomyopathy noted with EF 35% 05/03/2024. Repeat echo pending 05/17/2024. Await results.
-Continue antibiotics per ID.
-May consider ischemic evaluation while inpatient versus outpatient to evaluate for coronary disease given new cardiomyopathy.
-Will reach out to primary oncologist, Dr. Sebastian Mejia for records and to find out prognosis.
-He was on chemotherapy with cisplatin, durvalumab and gemcitabine. Last treatment 02/2024. Chemo discontinued due to recurrent infection.
-Discussed with RN, automatic typewriter inspector.
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
mellitus type 2, J CARLOS on CPAP, and prior pericarditis. He presents to ER for evaluation of shortness of breath and vomiting. He has been at [facility] following recent hospitalization at [facility] 04/24/2024 - 05/06/2024 where he was admitted with
cholangitis, new cardiomyopathy, and new atrial flutter. While there, he was started on amiodarone and spontaneously converted to sinus rhythm. He was attempted on anticoagulation, however developed GI bleed with this, requiring 2 units PRBCs.
Anticoagulation was stopped and he has had no recurrent arrhythmia noted since that time. During this hospitalization, he also had echocardiogram which showed new cardiomyopathy with EF 35%. There was consideration for stress testing during this
hospitalization, however it was not performed. He denies any chest pain. He reportedly had recurrent abdominal pain yesterday with episode of vomiting. Then this morning he had shortness of breath and came to ER for evaluation. In ER, he was
found to have concern for sepsis as well as acute heart failure exacerbation. He was given a single dose of IV Lasix in the emergency room, and was also started on IV antibiotics. Cardiology consulted for evaluation. At this time, patient denies
any chest pain or shortness of breath, does admit to some weakness.
Data Reviewed
-
Radiology: Report Reviewed by me
CT Scan: Report Reviewed by me
Labs: Labs Reviewed by me
Old Records: Reviewed
[2024-05-17] MEDS: LEVOPHED 250 IV (10:35)
--- NOTE | 2024-05-17 10:39 | PTCARENOTE ---
Levophed gtt initiated @ 2 mcg/min through right SQ port. Titrating for MAP >65. Patient resting comfortably. No complaints. Weaned to 3L MF. Pulse ox 99%.
--- NOTE | 2024-05-17 11:03 | CM ---
CM following re: discharge planning.
Reviewed pt's chart, met with pt and pt's spouse at bedside.
Pt is a 74 year old male, admitted with primary dx of Severe Sepsis, acute hypoxic respiratory failure. Pt currently requires 5L midflow NC of O2.
Pt reports he lives with spouse in a 2SH, 2 steps to enter, has 2 supportive children. Pt rapports he uses C-Pap machine at home. Pt's spouse stated that pt was placed to [facility] one week ago and she and the pt requested a new SNF. A list of
SNFs provided to the pt and his spouse. Following SNFs preferred: [facility], [facility], [facility], [facility], [facility].
CM will make a referral to above SNFs. Pt's spouse stated that pt will definitely returns back home after the completion of a short term rehab.
Pharmacy: [facility].
D/C plan: preferred SNF.
CM will follow to assist pt with discharge to a preferred SNF.
--- NOTE | 2024-05-17 11:35 | PTCARENOTE ---
Cardiology PA notified of improved BP. 40mg IV Lasix ordered.
[2024-05-17] MEDS: LASIX 40 MG IV (11:47)
--- NOTE | 2024-05-17 11:52 | WOUNDNOTE ---
L HIP AND BUTTOCKS
--- NOTE | 2024-05-17 11:53 | WOUNDNOTE ---
L HIP AND L ARM
--- NOTE | 2024-05-17 11:55 | WOUNDNOTE ---
WON RN note: Patient admitted with sepsis and bilateral pneumonia.
See H&P for complete history.
PMH: NIDDM, Ascites, sleep apnea(CPAP),CHF,HTN, A FIB.
Wound Location and type/assessment: Patient admitted with: L heel blister, suspect DTI vs shallow blister. Dark maroon red skin under blister, filled with serosanguineous drainage, scant drainage. R heel is blanchable red. L hip with dry scab,
unstageable PI vs abrasion, has a scabbed abrasion on L elbow. Has fungal appearing rash on posterior thighs, and blanchable red buttocks. Incontinent associated skin damage with a few peeling skin areas on buttocks, Calazime in use. R hip is
intact, assessed patient along with nurse Thomas's assistance.
Appetite: Poor.
Pressure redistribution devices in place:[facility], recommend keep on air mattress if transferred to floor. Offloading heel boot, when in bed, called [facility] for supply. Air cushion on pillow under calves
Plan: Silicone foams applied to L heel and hip, offloading and fungal powder for posterior thighs/perineum bid.
Will confirm orders with hospitalist and updated nurse Thomas. Nurse will apply TruVue lite heel boot when arrives.
Updated care plan and will follow as needed.
Note to case management of equipment requested for discharge: Air mattress for SNF.
Recommend follow up at wound care center upon discharge.
[2024-05-17] MEDS: ULTRAM 25 MG PO (12:18)
[2024-05-17 12:37] LABS: Glucose - Point of Care 84 mg/dl (70-99)
--- NOTE | 2024-05-17 13:57 | PTCARENOTE ---
IRAD at bedside. Right thoracentesis complete.
[2024-05-17 14:35] LABS: Body Fluid pH 7.53
[2024-05-17 15:02] LABS: Body Fluid Mononuclear 77.2 %; Body Fluid Polymorphonuclear 22.8 %; Body Fluid WBC 114 /CUMM
[2024-05-17 15:16] LABS: Body Fluid Glucose 83 mg/dl; Body Fluid LDH 242 U/L; Body Fluid Protein 3.1 g/dl
[2024-05-17 15:33] LABS: Body Fluid Second Tech FB
[2024-05-17 15:59] LABS: Glucose - Point of Care 89 mg/dl (70-99)
--- NOTE | 2024-05-17 16:12 | PTCARENOTE ---
Oxygen weaned to 2L. Patient states breathing improved post thoracentesis.
[2024-05-17] MEDS: VANCOCIN HCL 500 MG 100 IV (18:25)
[2024-05-17] MEDS: DESENEX/MITRAZOL/ZEASORB 1 APPLIC TOPICAL (20:18)
--- NOTE | 2024-05-17 20:30 | PTCARENOTE ---
rec'd patient. assessment as documented. denies pain. oriented x3. SR w/ BBB. on 2L NC, denies SOB. lungs diminished and clear. PO intake encouraged, poor appetite noted. urinal at bedside. levo gtt infusing through R SQ port to maintain MAP >65. pt
repositioned with pillows. call reilly within reach, care ongoing.
[2024-05-17] MEDS: LEVOPHED 258 MG IV (21:08)
--- NOTE | 2024-05-17 21:13 | PTCARENOTE ---
levo gtt switched to double concentration per pharmacy order
--- NOTE | 2024-05-17 22:22 | PTCARENOTE ---
pt desatting to 80s and c/o chills, pt placed on 10L midflow with no response in spO2, NRB placed, pt now satting 97%. temp 98.1 orally. ICU ROCKET TEST FIRE WORKER made aware, HFNC ordered to maintain spO2 >90%. RT at bedside placing HFNC on patient.
[2024-05-17 23:38] LABS: Glucose - Point of Care 245 mg/dl (70-99)
[2024-05-18] VITALS (71 sets, daily range): BP systolic 80–155; BP diastolic 38–88; BMI 26.1
[2024-05-18] MEDS: ZOSYN 50 IV ×4 (03:06→21:02)
[2024-05-18 03:58] LABS: Hematocrit 20.7 % (39.0-52.0); Mean Corp Hgb Conc. 33.8 g/dL (33.0-37.0); Mean Corpuscular Volume 91.6 fL (80.0-94.0); Red Blood Cell Count 2.26 10^6/uL (4.70-6.10); Red Cell Dist. Width 20.1 % (11.5-14.5); White Blood Cell Count 26.7 10^3/uL (4.8-10.8)
[2024-05-18 04:00] LABS: Vancomycin Random 19.4 ug/ml
[2024-05-18 04:10] LABS: ALT (SGPT) 185 U/L (0-50); AST (SGOT) 426 U/L (17-59); Albumin 2.3 g/dl (3.5-5.0); Blood Urea Nitrogen 32 mg/dl (9-20); Calcium 7.8 mg/dl (8.4-10.2); Carbon Dioxide 29 mmol/L (22-30); Chloride 100 mmol/L (98-107); Estimated Creatinine Clearance 46 ml/min; Glucose 148 mg/dl (70-99); Magnesium 1.4 mg/dl (1.6-2.3); Potassium 3.6 mmol/L (3.5-5.1); Sodium 135 mmol/L (135-145); Total Bilirubin 9.7 mg/dl (0.2-1.3); Total Protein 4.8 g/dl (6.3-8.2); eGFR 52.09
[2024-05-18 04:18] LABS: Alkaline Phosphatase 2311 U/L (38-126)
[2024-05-18] MEDS: PITRESSIN 100 IV (04:23)
[2024-05-18 04:25] LABS: Mean Platelet Volume 11.8 fL (7.4-10.4); Platelet Count 44 10^3/uL (130-400)
[2024-05-18 04:26] LABS: Absolute Neutrophils -Man Diff 26.1 10^3/uL (1.4-6.5); Anisocytosis 1+; Band Neutrophils 10 % (0-3); Lymphocytes 1 % (20-51); Monocytes 1 % (2-9); Normal RBC Morphology No; Platelets Checked Yes; Segmented Neutrophils 88 % (42-75)
[2024-05-18 04:27] LABS: Polychromasia Occasional
[2024-05-18 04:28] LABS: Acanthocytes Occasional; Basophilic Stippling Occasional; Schistocytes Occasional; Target Cells Occasional; Total Cells Counted 100
[2024-05-18] MEDS: MAGNESIUM SULFATE 50 IV (04:34)
--- NOTE | 2024-05-18 04:38 | PTCARENOTE ---
AM labs sent. Hgb 7.0, ICU COAL YARD SUPERVISOR made aware. q6h H&H ordered. mag repleted. CXR ordered for AM. pt BP gradually dropping, levo gtt titrated up per protocol, vaso gtt initiated. pt remains oriented, denies SOB/CP/pain at this time. call reilly within
reach, care ongoing.
[2024-05-18] MEDS: ULTRAM 25 MG PO (06:05)
--- NOTE | 2024-05-18 07:25 | W.PN.INTV ---
Today's Communication / Plan
Recommendations
Attempt to wean pressors
Transfuse
GI evaluation
Added PPI
Antibiotics
Follow-up pleural fluid analysis
Diuresis eventually as tolerated
Assessment
-
74-year-old male with history of atrial fibrillation, hypertension, sleep apnea, restrictive lung disease and diabetes with a recent diagnosis of cholangiocarcinoma with stents status post chemo recently complicated by infection and returns with
pulse ox at home in the 50s, emesis and suspected septic shock-ceramic plater consulted for sepsis/critical care management 05/17/2024.
Sepsis with shock unresponsive to fluids requiring pressors
Leukocytosis-WBC 16.1
CHF with reduced EF
Bilateral right greater than left pleural effusion
Status post right thoracentesis 05/17/24--1 L clear miya fluid, exudate, cultures negative, cytology pending
Anemia-hemoglobin 8.4-normocytic
Thrombocytopenia-platelet 104
Mild hyperglycemia
Elevated LFTs
Hypoalbuminemia
Conditions present prior to admission:
Cholangiocarcinoma.
Atrial fibrillation.
Hypertension.
Hyperlipidemia.
Diabetes.
Depression.
J CARLOS on CPAP.
Restrictive lung disease.
Decreased diffusing capacity.
Postnasal drip.
Anemia.
Septoplasty. Biliary stenting x 2.
Plan
Remains critically ill on 2 pressors
Supplemental oxygen as needed-currently on high flow
BiPAP if needed
Intubate and mechanically ventilate if necessary
Aspiration precautions
Nebulizers if needed
CT chest 05/17/2024-no evidence for pulm embolism, moderate bilateral pleural effusions with compressive atelectasis
Chest x-ray 05/18/2024-findings of CHF, small left pleural effusion
Bilateral pleural effusions
Thoracentesis-right side 05/17/24--1.05 L clear miya fluid, WBC 114, glucose 83, total protein 3.1, LDH 242, pH 7.5, cultures negative, cytology pending
Reviewing chest x-ray I do not believe there is enough fluid on the left for thoracentesis
Monitor for fluid reaccumulation
Check left chest ultrasound to see if there is enough fluid for thoracentesis
Cultures reviewed
Blood culture positive for Klebsiella
Repeat blood cultures
Continue antibiotics-currently on vancomycin and Zosyn
Infectious disease consultation-pending
Monitor leukocytosis
Decrease IV fluids
Continue pressors-norepinephrine and vasopressin-attempt to wean
Cardiology [id number] with Dr. Lema
Diuresis as tolerated
Echocardiogram 05/17/2024-EF 60-65%, PA systolic estimated 70-EF improved from 35%
Trend troponin
Monitor renal function, electrolytes, intake/output, lower extremity edema and weight
Replace electrolytes as needed
Thoracentesis-right and then consider left as well-diagnostic and therapeutic
Monitor blood sugar
Insulin supplementation as needed
Monitor hemoglobin-currently 6.8
Transfuse as needed
Heme test stools
GI evaluation ongoing
PPI
Monitor LFTs
DVT prophylaxis-mechanical
Early nutrition if possible
Early mobilization/bedside range of motion
Outpatient oncology [id number] to resume chemotherapy once infections under control
Patient was last seen pulmonary/sleep disorders office 04/22/[address] Fofana and has a follow-up appointment 05/27/2024 at 1015 with Kae Garcia NP
Critical care statement: A total of 45 minutes of critical care time was provided for this patient today. This includes management of unstable vital signs, evaluation of the patient at bedside, reviewing the patient's pertinent medical records
including radiographs, pressor management, microbiology, laboratory evaluations, and discussion with primary team, consultants, pharmacy, nutrition, physical therapy, case management, charge nurse, critical care nursing, and respiratory therapy.
Diagnostic data:
Chest x-ray 05/17/2024-pulmonary edema with small bilateral pleural effusions
CT chest with PE protocol 10/24/20--no Pulmonary Embolism, no significant other abnormalities,Patient notified.
CT chest abdomen and pelvis 12/04/2023-multiple fluid collections in perihepatic region including collection within the gallbladder fossa, no evidence for metastatic disease in the chest abdomen or pelvis, mild prostate enlargement
Lower extremity ultrasound 02/09/2024-no evidence for lower extremity deep venous thrombosis
Stress echocardiogram 06/12/20--no EKG or echocardiographic evidence of myocardial ischemia, lightheadedness and shortness of breath with exercise which resolved in recovery, overall low to intermediate risk study.
Spirometry 09/20/20--FEV1 2.3 L-77%, FVC 2.92 L-71%, no significant BD response. Mild restriction.
PFT 11/10/20--FEV1 2.7 L-91%, FVC 3.3, 1 L-79%, TLC 68%, RV 45%, DLCO 83%. Mild restriction and mild reduction in diffusing capacity.
Spirometry 09/26/21-FEV1 2.29 L, 88%, FVC 2.78 L-80%, no significant BD response. Mild restriction.
PFT 11/14/22-FEV1 2.25 L-78%, FVC 2.5 L 69% , TLC 63%, RV 40%, DLCO 76%. Mild to moderate restriction and mild reduction in diffusing capacity
Spirometry 07/16/23-FEV1 2.2-91%, FVC 2.7-79%,No significant BD response. Mild restriction.
Originally diagnosed around 2006 PSG-AHI-20, desaturation hillary 86%, CPAP 9 cm
PSG 09/16/18--AHI-16.7, desaturation hillary 84%, 0.7% time <90% saturation.
Subjective Dataa
Subjective Data
Date of Service:
Date of Service: May 18, 2024
Chief Complaint: Licensed Social Worker Follow Up and Pulmonary Follow Up
Subjective:
Feels overall better, no shortness of breath at rest, increased FiO2 requirements, no chest pain, abdominal pain, leg swelling or new weakness
Review of Systems
General: Other (Per HPI)
Objective Data
Data Reviewed
Vital Signs / I&O / Oxygen:
Vital Signs
Temp Pulse Resp BP Pulse Ox
98.4 F 69 16 129/60 98
05/18/24 03:07 05/18/24 07:00 05/18/24 07:00 05/18/24 07:00 05/18/24 07:00
Intake and Output
05/17/24 05/18/24 05/19/24
06:59 06:59 06:59
Intake Total 2172.0 / 2172.0
Output Total 200 / 200 1200 / 1200
Balance -200 / -200 972.0 / 972.0
SaO2 98
Nasal Cannula flow liters per 40
minute
Physical Exam
General: Respiratory Distress (n) and Comfortable
HEENT: Normocephalic and Anicteric
Cardiovascular: Regular Rhythm, Murmur and Peripheral Edema
Respiratory: Clear (Diminished breath sounds at both bases and rare crackles), Wheeze (n), Crackles (Rare crackles), Rhonchi (n), Non-Labored Respirations, Accessory Resp Muscle Use (n) and Stridor (n)
GI: Soft, Non Distended and Non Tender
Neurology: Awake, Alert and No Motor Deficits
Skin: Warm, Good Color, Cyanosis (n), Jaundice (n) and Rash
Labs/Micro/Reports
Lab Data
05/18/24 03:14
Microbiology
05/17/24 01:21 Blood/Venous Blood Culture - Preliminary
Klebsiella pneumoniae
05/17/24 01:21 Blood/Venous Gram Stain - Final
05/17/24 13:59 Pleural Fluid Gram Stain - Preliminary
[2024-05-18 07:42] LABS: Glucose - Point of Care 218 mg/dl (70-99)
[2024-05-18] MEDS: NOVOLOG FLEXPEN-LOW RESISTANCE 2 UNITS SC (07:42)
[2024-05-18] MEDS: DESENEX/MITRAZOL/ZEASORB 1 APPLIC TOPICAL ×2 (07:42→20:16)
[2024-05-18] MEDS: PACERONE 200 MG PO (07:42)
[2024-05-18] MEDS: CYMBALTA DELAYED RELEASE 20 MG PO ×2 (07:42→20:16)
[2024-05-18 07:52] LABS: Hematocrit 19.7 % (39.0-52.0); Hemoglobin 6.8 g/dL (13.0-18.0)
--- NOTE | 2024-05-18 08:02 | W.PN.HOSP.TC ---
Addendum entered and electronically signed by Elenita Hobbs MD 05/18/24 13:45:
# Moderate protein calorie malnutrition
# L heel blister, suspect DTI vs shallow blister
# L hip with dry scab, unstageable PI vs abrasion
Original Note:
Today's Communication/Plan
-
see A/P
Assessment / Plan
Assessment / Plan
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
A/P:
# Now Septic shock with Klebsiella bacteremia, source likely acute cholangitis
blood culture positive for Klebsiella
check repeat blood culture
CXR noted small left pleural effusion with associated atelectasis and/or pneumonia, slightly progressed.
CT chest: No pulmonary embolism. Moderate bilateral pleural effusions with associated compressive atelectasis. Mild pulmonary interstitial and alveolar edema.
Procal elevated at 0.89
s/p R thoracentesis 05/17, removed 1050 cc of clear miya pleural fluid.
Pleural fluid likely exudative
Cont IV vancomycin & Zosyn
Follow MRSA screen
Cont Levophed and vasopressin for BP support, wean pressors as tolerated
Shoelace Tipping Machine Operator/ID on board
# Acute anemia
Hgb dropped from 8.4 to 6.8
Will transfuse 2 units PRBC
GI already on board
# Acute hypoxic RF
Was on 12L NC, then weaned to 5L NC, now on high flow NC
CT PE neg for PE
# Elevated LFT suspect cholestatic pastern due to acute cholangitis
# HX Biliary stent
# Underlying cholangiocarcinoma
Trend LFT
GI on board
# Thrombocytopenia
# Suspect ACD
Trend CBC
transfuse as above
# Benign Hypertension
Hold TOW MOTOR DRIVER BP meds Coreg/hydralazine
# DMT2
Hold PO medications acutely.
add Low SSI
# h/o A flutter
cont TOW MOTOR DRIVER amiodarone
# Hypomagnesemia
replete IV Mag
DVT Px: SCD
Code: Full code
DW Shoelace Tipping Machine Operator
DW RN
updated on the phone
Critical care time 37 min
Anticipated Discharge: > 48 hours
Subjective/Interval History
-
Date of Service: May 18, 2024
Objective Data
-
Labs:
Laboratory Results
05/18/24 05/18/24 05/18/24
03:14 07:31 14:00
WBC 26.7 H
Hgb 7.0 L 6.8 L* Pending
Hct 20.7 L* 19.7 L* Pending
Plt Count 44 L D
Sodium 135
Potassium 3.6
Chloride 100
Carbon Dioxide 29
BUN 32 H
Creatinine 1.4 H
Glucose 148 H
Calcium 7.8 L
Total Bilirubin 9.7 H D
AST 426 H
ALT 185 H
Alkaline Phosphatase 2311 H
05/18/24
20:00
WBC
Hgb Pending
Hct Pending
Plt Count
Sodium
Potassium
Chloride
Carbon Dioxide
BUN
Creatinine
Glucose
Calcium
Total Bilirubin
AST
ALT
Alkaline Phosphatase
Vital Signs:
Vital Signs
Temp Pulse Resp BP Pulse Ox
37.1 C 69 16 132/81 98
05/18/24 07:47 05/18/24 07:42 05/18/24 07:00 05/18/24 07:42 05/18/24 07:00
I&O
05/17/24 05/18/24 05/19/24
06:59 06:59 06:59
Intake Total 2172.0 / 2172.0
Output Total 200 / 200 1200 / 1200
Balance -200 / -200 972.0 / 972.0
Review of Systems
-
All other systems: Reviewed and negative
Constitutional: Reports Weakness
Physical Exam
-
General: Well Developed, Well Nourished, Respiratory Distress, Conversant and Appears Chronically Ill
HEENT: Normocephalic, Atraumatic, Nose Appears Normal, Ears Appear Normal and Oxygen (high flow NC )
Respiratory: Clear to Auscultation and Non Labored Respirations; Negative Accessory Resp Muscle Use
Cardiac: Regular Rhythm and S1/S2
GI: Soft, Nontender, Nondistended and Normal Bowel Sounds
Skin: Warm and Dry
Neuro: Awake, Alert and Oriented
Psych: Calm
Data Reviewed
-
Labs: Labs Reviewed by me
--- NOTE | 2024-05-18 08:21 | PTCARENOTE ---
pt received from previous rn- aox3, drowsy, reefusing breakfast. pt on 40L 40% hfnc, denies sob or cp. nsr with bbb on monitor. pt remains on levophed and vaso for map>65. pt educated on poc for shift verbalized understanding. poc discussed with
Faby and Dr. Camacho. pt ordered for 1 unit prbc, blood cultures sent. all safety precautions in place,call reilly within reach.
--- NOTE | 2024-05-18 08:34 | PHA.VAN.FU ---
Vancomycin Assessment / Plan
- Assessment
Renal Function: SCR Increasing
WBC's are: Trending Up
In the past 24 hrs, patient has been: Afebrile
Concomitant Antimicrobials: piperacillin/tazobactam
- Assessment - Therapeutic Drug Monitoring
Random Level: 19.4 - drawn ~8.5H after previous dose of 500mg
- Dosing Plan
Dosing by Level: Re-dose today (Vanc 750mg)
Dosing Comments: will give single dose today and follow level trend
- Monitoring Plan
Random Level: 05/19 06
- Follow Up
Pharmacy will continue to follow.
Vancomycin Follow UP
- -
Patient Age: 74
Patient Sex: Male
Vancomycin Day #: 2
Indication: Gi / Intra-Abdominal
Requesting Provider: Dr. Ga / Daina
Pertinent Antimicrobial Allergies:
no pertinent antibiotic allergies
Height / Weight:
Height 5 ft 10 in
Actual Weight 82.6 kg
Pertinent Past Medical History: cholangiocarcinoma, DM
- Vital Signs / Lab Results
Temp Pulse Resp BP Pulse Ox
98.7 F 69 16 132/81 97
05/18/24 07:47 05/18/24 07:42 05/18/24 07:00 05/18/24 07:42 05/18/24 08:29
Lab Results - Hematology
05/17/24 05/18/24
01:21 03:14
WBC 16.1 H 26.7 H
Band Neutrophils 10 H
Lab Results - Chemistry
05/17/24 05/18/24
01:21 03:14
BUN 26 H 32 H
Creatinine 1.2 1.4 H
Estimated Creat Clear 54 46
Albumin 2.9 L 2.3 L
05/17/24 05/17/24 05/17/24
01:21 05:53 08:00
Lactic Acid 3.1 H 1.7 Cancelled
05/17/24 05/17/24 05/17/24
09:40 13:40 17:40
Lactic Acid Cancelled Cancelled Cancelled
Microbiology Results
05/17/24 06:14 MRSA Screen - Final
Nose No Methicillin Resistant Staphylococcus aureus isolated.
05/17/24 01:21 Blood Culture - Preliminary
Blood/Venous Klebsiella pneumoniae
Gram Stain - Final
05/17/24 13:59 Gram Stain - Preliminary
Pleural Fluid
Therapeutic Drug Monitoring
Random Vancomycin 19.4 ug/ml 05/18/24 03:13
--- NOTE | 2024-05-18 08:35 | W.PN.CARDCBS ---
Today's Communication / Plan
-
Continue broad-spectrum antibiotics and oxygen.
Will likely need diuretics over the next 12 to 24 hours. Agree with thoracentesis.
Hemoglobin down to 6.8. Remains in sinus rhythm. Continue amiodarone. Not on anticoagulation for
CT scan with no pulmonary embolism.
Continue to hold all afterload agents while on pressors. Wean as tolerated
Impression / Plan
-
PCP: Dr. Gordon
Medical Management Specialist: Dr. Gonsalez
Oncologist: Dr. Sebastian Mejia ([phone])
Impression:
Presented with SOB, N/V
Acute hypoxic respiratory failure
Acute HFrEF
Sepsis
Cardiomyopathy, EF 35%
Paroxysmal atrial flutter
Not anticoagulated due to GIB
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
s/p biliary stenting and partial cholecystectomy
Hypertension
Hyperlipidemia
DM2
J CARLOS on CPAP
h/o pericarditis
Echo 05/03/2024 @ [facility]: EF 35%, mild to moderate TR, moderate pulmonary hypertension, estimated PAP 54 mmHg
Echo 05/17/2024: EF 60%, Flattned RV, mild-mod TR, PA pressure 70
Plan:
--Continue pressors for supportive care and treatment of sepsis. Continue antibiotics.
-Would continue to hold diuresis for another 12 to 24 hours. Will likely need IV Lasix soon though.
-Echo with continued pulm hypertension but CT scan with no pulmonary embolism. Will need diuresis.
-Wean Levophed and vasopressin as tolerated.
-Agree with thoracentesis to improve volume.
-Hemoglobin down to 6.8. Continue to follow. Remains in sinus. Continue amiodarone.
-May consider ischemic evaluation while inpatient versus outpatient to evaluate for coronary disease given new cardiomyopathy.
-Will reach out to primary oncologist, Dr. Sebastian Mejia for records and to find out prognosis.
-He was on chemotherapy with cisplatin, durvalumab and gemcitabine. Last treatment 02/2024. Chemo discontinued due to recurrent infection.
-Discussed with gill box operator.
-CC time 33 min
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
mellitus type 2, J CARLOS on CPAP, and prior pericarditis. He presents to ER for evaluation of shortness of breath and vomiting. He has been at [facility] following recent hospitalization at [facility] 04/24/2024 - 05/06/2024 where he was admitted with
cholangitis, new cardiomyopathy, and new atrial flutter. While there, he was started on amiodarone and spontaneously converted to sinus rhythm. He was attempted on anticoagulation, however developed GI bleed with this, requiring 2 units PRBCs.
Anticoagulation was stopped and he has had no recurrent arrhythmia noted since that time. During this hospitalization, he also had echocardiogram which showed new cardiomyopathy with EF 35%. There was consideration for stress testing during this
hospitalization, however it was not performed. He denies any chest pain. He reportedly had recurrent abdominal pain yesterday with episode of vomiting. Then this morning he had shortness of breath and came to ER for evaluation. In ER, he was
found to have concern for sepsis as well as acute heart failure exacerbation. He was given a single dose of IV Lasix in the emergency room, and was also started on IV antibiotics. Cardiology consulted for evaluation. At this time, patient denies
any chest pain or shortness of breath, does admit to some weakness.
Progress Note - Medical Management Specialist
Subjective
Date of Service: May 18, 2024
states breathing is stable.. NO chest pains/fevers
Objective
Labs:
05/18/24 20:00
05/18/24 03:14
Labs
Hgb Cancelled 05/18/24 20:00
Hct Cancelled 05/18/24 20:00
Plt Count 44 10^3/uL (130-400) L D 05/18/24 03:14
PT 15.7 Sec (11.4-14.6) H 05/17/24 05:53
INR 1.26 05/17/24 05:53
APTT 30.5 Sec (23.4-35.0) 05/17/24 05:53
Sodium 135 mmol/L (135-145) 05/18/24 03:14
Potassium 3.6 mmol/L (3.5-5.1) 05/18/24 03:14
BUN 32 mg/dl (9-20) H 05/18/24 03:14
Creatinine 1.4 mg/dL (0.7-1.3) H 05/18/24 03:14
Glucose 148 mg/dl (70-99) H 05/18/24 03:14
Troponins
05/17/24
01:21
Troponin I 0.012
Vital Signs and I&O:
Vital Signs
Temp Pulse Resp BP Pulse Ox
98.7 F 69 16 132/81 97
05/18/24 07:47 05/18/24 07:42 05/18/24 07:00 05/18/24 07:42 05/18/24 08:29
Vital Signs
Temp Pulse Resp BP Pulse Ox
98.7 F 69 16 132/81 97
05/18/24 07:47 05/18/24 07:42 05/18/24 07:00 05/18/24 07:42 05/18/24 08:29
Intake & Output
05/16/24 05/17/24 05/18/24 05/19/24
06:59 06:59 06:59 06:59
Intake Total 2172.0 / 2202.8 54.8 / 54.8
Output Total 200 / 200 1200 / 1200
Balance -200 / -200 972.0 / 1002.8 54.8 / 54.8
Physical Exam
Physical Exam
GEN: No distress, awake
HEENT: supple, anicteric, mmm, hi flow
LUNGS: scatt rhonchi
CV: Reg, S1/S2, 1/6 syst LSB, no gallop
ABD: soft, BS+, NT/ND
EXT: No edema
NEURO: Gross non-focal
SKIN: No rash
[2024-05-18] MEDS: PROTONIX IV 40 MG IV (09:23)
[2024-05-18] MEDS: NSS (PRESERVATIVE FREE) 10 ML IV (09:24)
--- NOTE | 2024-05-18 10:14 | PTCARENOTE ---
unit of prbc infusing, pt tolerating. levophed being weaned, vaso on standby maintaining map>65. weaned from hfnc to 6LNC. assessment unchanged.
--- NOTE | 2024-05-18 10:20 | W.PN.UPDATE ---
Update Note
Progress Note Update
Reevaluated the patient at the bedside-discussed CODE STATUS
We addressed CODE STATUS with patient-patient currently states that he would want intubation and mechanical ventilation as well as CPR, shocking and antiarrhythmic medications if CODE STATUS would occur
He understands the ramifications and we will respect his wishes
Reviewed with critical care nursing who was present during conversation
[2024-05-18] MEDS: VANCOCIN 150 IV (11:07)
--- NOTE | 2024-05-18 11:32 | W.PN.GI.CBS2 ---
Addendum entered and electronically signed by Meseret Younger MD 05/18/24 18:22:
I saw and examined the patient.
The medical billing manager's note was reviewed and I agree with the note.
Impression
--Metastatic poorly differentiated gallbladder adenocarcinoma vs cholangiocarcinoma -s/p ERCP with biliary stent placement at [facility] 04/26/2024 ( details below )
-- Septic shock with gram-negative bacteremia
-- Elevated liver test -progression of malignancy versus stent occlusion
-- Right pleural effusion s/p thoracentesis
-- Multiple hospital admission in the recent past with sepsis -intra-abdominal abscess/cholangitis
plan
Patient is currently on pressors unstable to get CT abdomen imaging. CT abd when stable to evaluate for intra-abdominal abscess versus stent patency versus progression of malignancy
Continue antibiotics as per ID
Case discussed with Dr. Marie this am -repeat imaging versus ERCP. he will evaluate once [facility] records available
Overall poor prognosis
Will recommend oncology consultation to discuss about disease prognosis
Original Note:
Today's Communication / Plan
-
Awaiting records from [facility] from most recent hospitalization. Consider abdominal CT when able. Will discuss with Dr Marie regarding possible ERCP. Recommend inpatient oncology consult.
Assessment / Plan
-
Patient is 74 year old male with past medical history of metastatic gallbladder adenocarcinoma/cholangiocarcinoma, afib/aflutter, cardiomyopathy, htn, hld, DM, J CARLOS, pericarditis who presented to [place] ED from [facility] 05/17 for shortness of breath;
GI consulted for abnormal LFTs and his cancer history.
Summary of clinical course:
09/2023 at : cholecystitis managed with cholecystostomy tube and went on to have ERCP, EUS, spyglass dx'd with biliary stricture bx adenocarcinoma --> then received care at [facility]
11/17/23: ex-lap with cholecystectomy, partial tumor resection, lysis of adhesions; (cx Morganella and Citrobacter koseri)
11/2023: admitted for postop abdominal abscess (cx Morganella morgani and Bacteroides fragilis); treated with IR drain into gallbladder fossa collection and 7 days bactrim/augmentin
12/2023: repeat CT seemed improved --> started chemotherapy
03/17-03/19: admitted with new perihepatic abscess. Not amenable for IR drainage; treated with cipro/flagyl for 2-3 weeks, plan was for repeat imaging prior to stopping antibiotics
04/07-04/12: admitted for sepsis. CT: 'small volume perihepatic fluid collection extending into anterior abdominal wall, not significantly changed since 03/10/24 and may be related to resolving postop collection. Hypodense lesion in the right hepatic
lobe at the site of presumed bile leak when compared to 12/04/23 and may be resolving biloma. Well positioned CBD stent however with mild intrahepatic biliary duct dilation similar in appearance to 03/10/24.' IR aspirated 6mL gelatinous pus, cultures
did not grow any organisms; discharged on 2 weeks cipro/flagyl with plan to repeat CTAP 04/23
04/24-05/05: admitted for acute cholangitis and sepsis; hospitalization was also notable for acute renal failure, GI bleeding while on anticoagulation for afib/aflutter, HFrEF (35%), gastric outlet obstruction, acute hypoxic respiratory failure. He
underwent ERCP with plastic stent replacement on 04/26 (below), and repeat EGD 05/04 to evaluate GIB which was unrevealing. At that time he declined further capsule study. He is no longer on any anticoagulation.
04/26/24 ERCP (Dr. Santoyo):
Stomach: large amount of retained food and fluid
Duodenum: D2 stricture making passage of duodenoscope and access to the papilla difficult.
Major Papilla: Evidence of prior biliary sphincterotomy. A previously placed stent was present.
Biliary: The extrahepatic bile duct appeared normal. The left hepatic ducts were of normal caliber. The RPSD were mildly dilated. There was a stricture of the distal RASD with parked peripheral RASD dilation. The cystic duct and gallbladder did not
opacify.
Pancreatogram neither attempted nor performed.
Therapeutic interventions:
The previously placed stent was removed. The bile duct was accessed with a sphincterotome loaded with a 0.025' Visiglide wire. A 12mm extraction balloon was pulled through the extrahepatic duct with extraction of debris. The RASD stricture was
dilated with a 3fmm23pe dilation balloon. After balloon dilation, purulent material drained from the RASD. Two [id number] plastic biliary stents were placed, one each in the RASD and LHD segment III.
Impressions:
Gastric outlet obstruction. Large amount of retained gastric food and fluid. F2 stricture making passage of duodenoscope and access to the papilla difficult.
Evidence of prior biliary sphincterotomy. A previously placed stent was present.
The extrahepatic bile duct appeared normal. The left hepatic ducts were of normal caliber. The RPSD were mildly dilated. There was a stricture of the distal RASD with marked peripheral RASD dilation. The cystic duct and gallbladder did not opacify.
S/p stent removal, extraction of debris, balloon dilation of RASD stricture, and bilateral plastic stent placement.
Plan:
Continue antibiotics
Follow LFTs
Consider EUS gastrojejunostomy
Could consider changing RASD stent to an uncovered SEMS
Impression:
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
- S/p partial cholecystectomy. S/p multiple EGD/ERCP with stent placements.
- Last chemotherapy treatment was 03/03/24; this was stopped in the setting of infections, which he has been in and out of the hospital for.
- Next appointment with oncologist was planned for 05/20/24 with the goal of discussing roll of additional chemotherapy. However, he has not been a candidate for systemic treatment given his multiple hospitalizations and infections over the past few
months.
Abnormal LFTs- transaminitis, hyperbilirubinemia
- Most recent stent placement on 04/26 was with a plastic stent. Per discussion with Dr. Mejia, his total bilirubin trended down from 3.5 to 1.1 after stents, his AST/ALT were relatively normal, and his alk phos was consistently elevated [id number].
Awaiting hospital records from [facility] for his most recent admission.
- Given that his total bilirubin is now significantly more elevated, possible stent occlusion secondary to luminal impaction, retained stone, or tumor growth. Stent migration less likely, though possible
- Concern for fulminant liver failure vs DIC given leukocytosis and thrombocytopenia; also concerning for high risk of bleeding during procedures at this time
Sepsis, requiring pressors
- Had been on levophed and NC yesterday --> vasopressin and high flow O2 added overnight
- Blood cultures positive for Klebsiella pneumoniae
- Repeat blood cultures pending
- ID following- on zosyn since 05/17
Anemia
- Hgb 8.4 on admission; previously 9.0 in November
- S/p 1u pRBC transfusion 05/18
Recent GI bleed, unknown origin
- No longer on anticoagulation
- No obvious source of GI bleed or active ongoing bleed
?Intraabdominal abscess vs new fluid collection/cyst
- Abdominal US 05/17 showed slightly irregular fluid collection adjacent to sugey hepatis, 2.0x2.7x1.9 cm
Thrombocytopenia
Leukocytosis
Gastric outlet obstruction
Afib/aflutter
HFpEF- echo 05/17 EF 60-65%
R Pleural effusion- s/p IR thoracentesis of 1050mL 05/17; results pending
Acute hypoxic respiratory failure
GERD
HTN
Dyslipidemia
Depression
Renal insufficiency
Recommendations:
- Consider inpatient oncology consultation to facilitate discussion of prognosis of his cancer.
- Awaiting records from [place] from most recent hospitalization to compare imaging and labs.
- Consider additional abdominal imaging with CT to evaluate fluid collection vs intraabdominal abscess as well as progression of cancer when patient is stable enough to travel to radiology.
- Will review with Dr. Marie regarding possible ERCP to exchange biliary stent. Given PLT 44 today, may need to consider platelet transfusion prior to intervention.
- Further recommendations to come.
Subjective
Subjective
Date of Service: May 18, 2024
No complaints today. His breathing feels better after the thoracentesis yesterday. Denies abdominal pain, bloating, nausea, vomiting, dysphagia, diarrhea, constipation. Last bowel movement was this morning, formed and soft, brown/black in color per
chart review.
Objective
Data Reviewed
Laboratory Data:
Laboratory Results
05/18/24 20:00
05/18/24 03:14
Laboratory Results
PT 15.7 Sec (11.4-14.6) H 05/17/24 05:53
INR 1.26 05/17/24 05:53
APTT 30.5 Sec (23.4-35.0) 05/17/24 05:53
Magnesium 1.4 mg/dl (1.6-2.3) L 05/18/24 03:14
Total Bilirubin 9.7 mg/dl (0.2-1.3) H D 05/18/24 03:14
AST 426 U/L (17-59) H 05/18/24 03:14
ALT 185 U/L (0-50) H 05/18/24 03:14
Alkaline Phosphatase 2311 U/L (38-126) H 05/18/24 03:14
Vital Signs and I&O:
Vital Signs
Temp Pulse Resp BP Pulse Ox
97.9 F 64 23 107/47 100
05/18/24 09:33 05/18/24 10:15 05/18/24 10:15 05/18/24 10:15 05/18/24 10:15
I&O
05/17/24 05/18/24 05/19/24
06:59 06:59 06:59
Intake Total 2172.0 / 2202.8 81.8 / 81.8
Output Total 200 / 200 1200 / 1200 100 / 100
Balance -200 / -200 972.0 / 1002.8 -18.2 / -18.2
Physical Exam
Physical Exam
General: Resting in bed. No acute distress.
Heart: Regular rate and rhythm.
Lungs: Anterior lung juan clear and equal to auscultation.
GI: Normal bowel sounds present. Abdomen soft, nontender, nondistended.
[2024-05-18 11:59] LABS: Glucose - Point of Care 318 mg/dl (70-99)
[2024-05-18] MEDS: NOVOLIN R 6 UNITS IV (12:19)
[2024-05-18] MEDS: NOVOLIN R INSULIN INFUSION 100 IV (12:20)
--- NOTE | 2024-05-18 12:53 | W.PN.ID1 ---
Date of Service
Date of Service: May 18, 2024
Today's Communication
Continue Zosyn. Discontinue further vancomycin.
Assessment / Plan
Leukocytosis
Nausea/vomiting
Bilateral pleural effusions
Cholangiocarcinoma
Clinical sepsis
- blood cultures with Klebsiella
Transaminitis
Hyperbilirubinemia
A-fib
Cholangiocarcinoma
GERD
HTN
Dyslipidemia
NIDDM
Depression
Sleep apnea (on CPAP)
Hx pericarditis
Renal insufficiency
Ascites
Anemia
Recommendations:
Continue with Zosyn. D/C further vanco.
Monitor white count and temperature curve.
Wean pressors as possible.
Follow pending cultures.
GI note reviewed. For abd CT when clinically more stable.
Chief Complaint
-: Clinical Sepsis and Pneumonia
Subjective / Review of Systems
Patient seen and examined. Pressors being weaned. S/p thoracentesis yesterday with recovery of 1 L fluid.
Review of Systems: No Fever
Vital Signs / Physical Exam
Vital Signs
Vital Signs
Temp Pulse Resp BP Pulse Ox
97.9 F 67 20 116/57 100
05/18/24 12:15 05/18/24 12:15 05/18/24 12:15 05/18/24 12:15 05/18/24 11:56
Physical Exam
Constitutional: Comfortable, Chronically Ill and Non-toxic
Cardiovascular: Regular Rate and S1/S2; Negative S3/S4
Pulmonary: Coarse and Non Labored; Negative Rhonchi
Gastrointestinal: Soft and Non Distended
Extremities: Negative Edema, Cyanosis or Erythema
Skin: Negative Rash or Jaundice
Psychological: Calm
Objective Data
Lab Data
Lab Results
05/18/24 20:00
05/18/24 03:14
PT 15.7 Sec (11.4-14.6) H 05/17/24 05:53
INR 1.26 05/17/24 05:53
APTT 30.5 Sec (23.4-35.0) 05/17/24 05:53
Estimated Creat Clear 46 ml/min 05/18/24 03:14
Lactic Acid Cancelled 05/17/24 17:40
Total Bilirubin 9.7 mg/dl (0.2-1.3) H D 05/18/24 03:14
AST 426 U/L (17-59) H 05/18/24 03:14
ALT 185 U/L (0-50) H 05/18/24 03:14
Alkaline Phosphatase 2311 U/L (38-126) H 05/18/24 03:14
Most recent labs reviewed.
Micro Results:
05/17/24 13:59 Body Fluid Culture - Preliminary
Pleural Fluid No Growth After 18-24 Hours
Gram Stain - Preliminary
05/17/24 01:21 Blood Culture - Preliminary
Blood/Venous Klebsiella pneumoniae
Gram Stain - Final
05/18/24 08:25 Blood Culture - Pending
Blood/Venous
05/17/24 06:14 MRSA Screen - Final
Nose No Methicillin Resistant Staphylococcus aureus isolated.
Imaging:
CXR (05/17/2024): Official report pending. Film personally viewed and suggest a left upper lobe and right middle lobe infiltrate.
05/17/2024 CT chest: Official report pending. Bilateral pleural effusions noted. Significant atelectasis noted secondary to the effusions. Pneumonia suspected.
--- NOTE | 2024-05-18 13:05 | PN.CDI ---
CDI
- -
CDI:
Physician Documentation Request
Admit Date: 05/17/24 03:08
Dear Doctor Faby,
Patient admitted with septic shock.
05/17 Nutrition note, 'Pt was observed with clavicle protrusion, hollow orbital; per nursing + 3 edema. Pt meets criteria for moderate protein calorie malnutrition of decreased intake and muscle and fat loss with fluid accumulation.
Please provide in your note the diagnosis associated with the above findings and your assessment:
Moderate protein calorie malnutrition
Mild protein calorie malnutrition
Other (please specify)
[place] Criteria ([facility] Hospitalist 2017)
2 or more criteria must be present for either
non severe or severe malnutrition
Note that the criteria differs related to the
presence of an acute or chronic illness
Acute Illness Chronic Illness
Energy Intake Non Severe: <75% for >7 days Non Severe: <75% for >1 month
Severe: <50% for >5 days Severe: <75% for >1 month
Weight Loss Non Severe: 1-2% over 1 week Non Severe: 5% over 1 month
5% over 1 month 7.5% over 3 months
7.5% over 3 months 10% over 6 months
1 year N/A 20% over 1 year
Severe: >2% over 1 week Severe: >5% over 1 month
>5% over 1 month >7.5% over 3 months
>7.5% over 3 months >10% over 6 months
1 year N/A >20% over 1 year
Body Fat Non Severe: Mild Decrease Non Severe: Mild Loss
Severe: Moderate Decrease Severe: Severe Loss
Muscle Mass Non Severe: Mild Decrease Non Severe: Mild Loss
Severe: Moderate Decrease Severe: Severe Loss
Fluid Accumulation Non Severe: Mild Accumulation Non Severe: Mild Accumulation
Severe: Moderate to severe Severe: Moderate to severe
accumulation accumulation
Reduced Pocket Cutter Strength Non Severe: N/A Non Severe: N/A
Severe: Measurably reduced Severe: Measurably reduced
Use of terms such as suspected, likely, concern for, or probable (associated with a specific diagnosis that is being evaluated, monitored, or treated as if it exists) are acceptable and can be coded in the inpatient setting, when documented at the
time of discharge.
Thank you,
Korina DEXTER,RN,CCDS
CDI Specialist
Available via [place] text
Please use your independent medical judgment in providing your response.
--- NOTE | 2024-05-18 13:13 | PN.CDI ---
CDI
- -
CDI:
Physician Documentation Request
Admit Date: 05/17/24 03:08
Dear Doctor Faby,
Patient admitted with septic shock.
05/17 N note, ' Patient admitted with: L heel blister, suspect DTI vs shallow blister....L hip with dry scab, unstageable PI vs abrasion.'
Physician documentation of the type and lo cation of wounds is required for compliant documentation. Based on the above clinical findings and your assessment, please provide the following in your progress note:
Type (etiology) of ulcer/wound:
- Pressure (decubitus) ulcer
- Other
- Unable to determine
3. For a non-pressure ulcer, please indicate the depth/severity:
- Limited to the breakdown of skin
- With fat layer exposed
- With necrosis of muscle
- With necrosis of bone
- Other
- Unable to determine
4. If a pressure ulcer, please also include the stage* of the ulcer:
- Stage 1 - Skin intact, non-blanchable redness
- Stage 2 - Partial thickness loss of dermis, includes intact or open blister
- Stage 3 - Full thickness tissue not including bone, tendon or muscle
- Stage 4 - Full thickness tissue loss, including exposed bone, tendon or muscle
- Unstageable - Full thickness loss in which the base of the ulcer is covered by slough (yellow, langford, cuellar, green or brown) and/or eschar (langford, brown or black) in the wound bed.
- Unable to determine
Use of terms such as suspected, likely, concern for, or probable (associated with a specific diagnosis that is being evaluated, monitored, or treated as if it exists) are acceptable and can be coded in the inpatient setting, when documented at the
time of discharge.
Thank you,
Korina DEXTER,RN,CCDS
CDI Specialist
Available via [place] text
Please use your independent medical judgment in providing your response.
*Source: National Pressure Ulcer Advisory Panel (NPUAP)
--- NOTE | 2024-05-18 13:29 | CM ---
CM following re: discharge planning.
Discussed in rounds, reviewed pt's chart. Per Rounds meeting, continue supportive care, ID and cardiology following.
PT and OT will evaluate the pt when clinically appropriate to determine a level of care at discharge. Both pt and his spouse preferred new SNF. [facility]'s home and [facility] SNF denied a referral. Awaiting for responses from [facility] and [facility].
D/C plan: preferred SNF.
CM will follow with discharge plan updates as hospitalization progresses
[2024-05-18 13:43] LABS: Glucose - Point of Care 259 mg/dl (70-99)
[2024-05-18] MEDS: LEVOPHED 258 MG IV (13:53)
[2024-05-18 13:59] LABS: Hemoglobin 7.6 g/dL (13.0-18.0)
--- NOTE | 2024-05-18 14:01 | PN.DE.MGMTRT ---
Insulin Management
- -
05/18/2024: Diabetes Management Consult
74 year old male who presented to the ED with SOB, N/V 2/2 Acute Hypoxic respiratory failure due to PNA and Sepsis.
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
insufficiency, Ascites, Anemia and NIDDM.
A1C 5%, Cr 1.4, eFGR 52.09. According to the pt's - Brea, pt was taking Glipizide 2.5mg in AM, 5mg in PM, Metformin 1000mg BID and Actos 15mg daily prior to admission. NOT Glargine 14 units @ HS and Lispro SS as noted in his chart
Pt is, awake, A/O x3, resting in bed, on pressors for low BP, able to discuss diabetes mgt but unable to provide details of mgt at home
Glucose has trended up to 318 this morning, and glycemic protocol has been initiated at 6 units/hr.
Will closely follow and assess for readiness to transition off the drip tomorrow morning.
Diabetes History
- -
Type of Diabetes: 2
Pre-Admission Diabetes Regimen
05/18/24
03:14
Creatinine 1.4 H
Lab Results
Hemoglobin A1c 5.0 % (4.0-5.6) 05/17/24 05:53
Insulin Pump Settings
IP Diabetes Regimen
05/17/24 05/17/24 05/18/24
15:47 23:26 03:14
Glucose 148 H
POC Glucose 89 245 H
05/18/24 05/18/24 05/18/24
07:31 11:48 13:32
Glucose
POC Glucose 218 H 318 H 259 H
Meal type: Breakfast
Amount consumed: Patient refused
Patient Education
[2024-05-18 14:41] LABS: Glucose - Point of Care 188 mg/dl (70-99)
[2024-05-18 15:39] LABS: Glucose - Point of Care 131 mg/dl (70-99)
--- NOTE | 2024-05-18 15:44 | PTCARENOTE ---
one unit of prbc infused hgb 7.6- dr. pollock aware- ordered to hold off on second unit at this time. no signs of bleeding.
--- NOTE | 2024-05-18 15:54 | PTCARENOTE ---
insulin gtt infusing as per order on 4LNC, at bedside and updated. frequent turning and repositioning. pt with minimal oral intake.
[2024-05-18 16:42] LABS: Glucose - Point of Care 89 mg/dl (70-99)
[2024-05-18 18:36] LABS: Glucose - Point of Care 97 mg/dl (70-99)
--- NOTE | 2024-05-18 20:29 | PTCARENOTE ---
rec'd patient. assessment as documented. oriented x3, gen. weakness, denies pain/SOB. SB/SR on monitor w/ BBB. levo gtt infusing to maintain MAP >65. insulin gtt infusing, currently q2h AccuCheck. on 4L NC. using urinal at bedside. pt repositioned
with pillows. call reilly within reach, care ongoing.
[2024-05-18 20:34] LABS: Glucose - Point of Care 96 mg/dl (70-99)
[2024-05-18 21:35] LABS: Blood Urea Nitrogen 38 mg/dl (9-20); Calcium 7.4 mg/dl (8.4-10.2); Carbon Dioxide 30 mmol/L (22-30); Chloride 99 mmol/L (98-107); Estimated Creatinine Clearance 41 ml/min; Glucose 98 mg/dl (70-99); Potassium 3.6 mmol/L (3.5-5.1); Sodium 133 mmol/L (135-145); eGFR 44.38
[2024-05-18] MEDS: CALCIUM CHLORIDE 10% SYRINGE 60 MG IV (21:54)
[2024-05-18] MEDS: KCL 50 IV (21:54)
[2024-05-18 22:44] LABS: Glucose - Point of Care 109 mg/dl (70-99)
[2024-05-19] VITALS (57 sets, daily range): BP systolic 63–142; BP diastolic 29–67; BMI 26.7
--- NOTE | 2024-05-19 | PTCARENOTE ---
pt denies pain, SB on monitor, on 4L NC. levo and insulin gtts continue per protocol.
[2024-05-19 00:38] LABS: Glucose - Point of Care 71 mg/dl (70-99)
[2024-05-19 01:39] LABS: Glucose - Point of Care 98 mg/dl (70-99)
[2024-05-19 02:37] LABS: Glucose - Point of Care 99 mg/dl (70-99)
[2024-05-19] MEDS: ZOSYN 50 IV ×4 (03:37→21:24)
[2024-05-19 03:50] LABS: Glucose - Point of Care 104 mg/dl (70-99)
[2024-05-19 03:56] LABS: % Basophils 0.2 % (0-2); % Immature Granulocytes 1.5 % (0-0.5); % Lymphocytes 2.5 % (20.5-51.1); % Monocytes 6.1 % (1.7-9.3); % Neutrophils 88.7 % (42.2-75.2); Absolute Eosinophils 0.2 10^3/uL (0-0.7); Absolute Immature Granulocytes 0.3 10^3/uL (0-0.05); Absolute Lymphocytes 0.5 10^3/uL (1.2-3.4); Absolute Monocytes 1.3 10^3/uL (0.1-0.6); Absolute Neutrophils 18.8 10^3/uL (1.4-6.5); Hematocrit 23.5 % (39.0-52.0); Hemoglobin 8.1 g/dL (13.0-18.0); Mean Corp Hgb Conc. 34.5 g/dL (33.0-37.0); Mean Corpuscular Hgb 31.9 pg (27.0-31.0); Mean Corpuscular Volume 92.5 fL (80.0-94.0); Nucleated Red Blood Cells % 0 % (-); Platelet Count 43 10^3/uL (130-400); Red Blood Cell Count 2.54 10^6/uL (4.70-6.10); Red Cell Dist. Width 18.7 % (11.5-14.5); White Blood Cell Count 21.3 10^3/uL (4.8-10.8)
[2024-05-19 04:08] LABS: ALT (SGPT) 209 U/L (0-50); AST (SGOT) 367 U/L (17-59); Albumin 2.2 g/dl (3.5-5.0); Blood Urea Nitrogen 39 mg/dl (9-20); Calcium 8.2 mg/dl (8.4-10.2); Carbon Dioxide 31 mmol/L (22-30); Chloride 100 mmol/L (98-107); Estimated Creatinine Clearance 41 ml/min; Glucose 90 mg/dl (70-99); Potassium 3.8 mmol/L (3.5-5.1); Sodium 134 mmol/L (135-145); Total Bilirubin 9.2 mg/dl (0.2-1.3); Total Protein 4.6 g/dl (6.3-8.2); eGFR 44.38
[2024-05-19 04:24] LABS: Alkaline Phosphatase 1756 U/L (38-126)
[2024-05-19 04:49] LABS: Glucose - Point of Care 96 mg/dl (70-99)
--- NOTE | 2024-05-19 06:00 | PTCARENOTE ---
AM labs sent. pt cleaned and repositioned, desenex and calazime applied to excoriated areas. levo and insulin gtt continue per protocols. call reilly within reach, care ongoing.
[2024-05-19 06:20] LABS: Glucose - Point of Care 111 mg/dl (70-99)
--- NOTE | 2024-05-19 07:28 | W.PN.INTV ---
Today's Communication / Plan
Recommendations
Antibiotics
Transfuse as needed
Repeat imaging versus ERCP
Diuresis if possible
Wean oxygen
Left lung thoracentesis-ultrasound suggests moderate pleural effusion
Increase activity
Assessment
-
74-year-old male with history of atrial fibrillation, hypertension, sleep apnea, restrictive lung disease and diabetes with a recent diagnosis of cholangiocarcinoma with stents status post chemo recently complicated by infection and returns with
pulse ox at home in the 50s, emesis and suspected septic shock-hand bookbinder consulted for sepsis/critical care management 05/17/2024.
Sepsis with shock unresponsive to fluids requiring pressors
Leukocytosis-WBC 16.1
CHF with reduced EF
Bilateral right greater than left pleural effusion
Status post right thoracentesis 05/17/24--1 L clear miya fluid, exudate, cultures negative, cytology pending
Anemia-hemoglobin 8.4-normocytic
Thrombocytopenia-platelet 104
Mild hyperglycemia
Elevated LFTs
Hypoalbuminemia
Conditions present prior to admission:
Metastatic poorly differentiated gallbladder adenocarcinoma vs cholangiocarcinoma -s/p ERCP with biliary stent placement at [facility] 04/26/2024
Atrial fibrillation.
Hypertension.
Hyperlipidemia.
Diabetes.
Depression.
J CARLOS on CPAP.
Restrictive lung disease.
Decreased diffusing capacity.
Postnasal drip.
Anemia.
Septoplasty. Biliary stenting x 2.
Plan
Remains critically ill on pressors though requirements have decreased
High flow oxygen-attempt to wean to nasal cannula
BiPAP if needed
Intubate and mechanically ventilate if necessary-reviewed CODE STATUS with him-wants to be a full code including CPR, shocking and intubation
Aspiration precautions
Nebulizers if needed
CT chest 05/17/2024-no evidence for pulm embolism, moderate bilateral pleural effusions with compressive atelectasis
Chest x-ray 05/18/2024-findings of CHF, small left pleural effusion
Bilateral pleural effusions
Thoracentesis-right side 05/17/24--1.05 L clear miya fluid, WBC 114, glucose 83, total protein 3.1, LDH 242, pH 7.5, cultures negative, cytology pending
Reviewing chest x-ray I do not believe there is enough fluid on the left for thoracentesis
Monitor for fluid reaccumulation
Check left chest ultrasound to see if there is enough fluid for thoracentesis
Cultures reviewed
Blood culture positive for Klebsiella
Blood culture 05/18/2024 positive for gram-positive cocci
Repeat blood cultures
Continue antibiotics-currently on vancomycin and Zosyn
Infectious disease consultation-pending
Monitor leukocytosis
Decrease IV fluids
Continue pressors-norepinephrine wean-vasopressin discontinued
Cardiology [id number] with Dr. Lema
Begin diuresis if possible and blood pressure tolerates
Echocardiogram 05/17/2024-EF 60-65%, PA systolic estimated 70-EF improved from 35%
Trend troponin
Monitor renal function, electrolytes, intake/output, lower extremity edema and weight
Replace electrolytes as needed
Thoracentesis-right
Left chest ultrasound--small to moderate on the left enough for attempted thoracentesis
Left thoracentesis will be arranged-Dr. Fofana called interventional radiology 05/19/2024
Monitor blood sugar
Insulin supplementation as needed
Monitor hemoglobin-yesterday 6.8-received 1 unit-now 8.1
Transfuse as needed
Heme test stools
GI evaluation ongoing-correspondence reviewed
Repeat imaging versus ERCP-Case will be discussed with Dr. Marie
PPI
Monitor LFTs
DVT prophylaxis-mechanical
Early nutrition if possible
Early mobilization/bedside range of motion
Reviewed [facility] records from discharge 03/15/[id number] abscesses, seen by infectious disease and placed on long-term antibiotics-Cipro and metronidazole, follows Dr. Mejia at [facility] treated with
gemcitabine, cisplatin, durvalumab-last dose 03/03/2024
Outpatient oncology [id number] to resume chemotherapy once infections under control
Patient was last seen pulmonary/sleep disorders office 04/22/[address] Fofana and has a follow-up appointment 05/27/2024 at 1015 with Kae Garcia NP
Critical care statement: A total of 40 minutes of critical care time was provided for this patient today. This includes management of unstable vital signs, evaluation of the patient at bedside, reviewing the patient's pertinent medical records
including radiographs, pressor management, microbiology, laboratory evaluations, and discussion with primary team, consultants, pharmacy, nutrition, physical therapy, case management, charge nurse, critical care nursing, and respiratory therapy.
Diagnostic data:
Chest x-ray 05/17/2024-pulmonary edema with small bilateral pleural effusions
CT chest with PE protocol 10/24/20--no Pulmonary Embolism, no significant other abnormalities,Patient notified.
CT chest abdomen and pelvis 12/04/2023-multiple fluid collections in perihepatic region including collection within the gallbladder fossa, no evidence for metastatic disease in the chest abdomen or pelvis, mild prostate enlargement
Lower extremity ultrasound 02/09/2024-no evidence for lower extremity deep venous thrombosis
Stress echocardiogram 06/12/20--no EKG or echocardiographic evidence of myocardial ischemia, lightheadedness and shortness of breath with exercise which resolved in recovery, overall low to intermediate risk study.
Spirometry 09/20/20--FEV1 2.3 L-77%, FVC 2.92 L-71%, no significant BD response. Mild restriction.
PFT 11/10/20--FEV1 2.7 L-91%, FVC 3.3, 1 L-79%, TLC 68%, RV 45%, DLCO 83%. Mild restriction and mild reduction in diffusing capacity.
Spirometry 09/26/21-FEV1 2.29 L, 88%, FVC 2.78 L-80%, no significant BD response. Mild restriction.
PFT 11/14/22-FEV1 2.25 L-78%, FVC 2.5 L 69% , TLC 63%, RV 40%, DLCO 76%. Mild to moderate restriction and mild reduction in diffusing capacity
Spirometry 07/16/23-FEV1 2.2-91%, FVC 2.7-79%,No significant BD response. Mild restriction.
Originally diagnosed around 2006 PSG-AHI-20, desaturation hillary 86%, CPAP 9 cm
PSG 09/16/18--AHI-16.7, desaturation hillary 84%, 0.7% time <90% saturation.
Subjective Dataa
Subjective Data
Date of Service:
Date of Service: May 19, 2024
Chief Complaint: Wool Tamper Follow Up and Pulmonary Follow Up
Subjective:
Feels better, no complaints of shortness of breath at rest, chest pain, chest tightness, productive cough, abdominal pain, nausea, weakness or increased leg swelling
Objective Data
Data Reviewed
Vital Signs / I&O / Oxygen:
Vital Signs
Temp Pulse Resp BP Pulse Ox
97.7 F 60 22 140/61 95
05/19/24 07:09 05/19/24 06:30 05/19/24 06:30 05/19/24 06:30 05/19/24 06:30
Intake and Output
05/18/24 05/19/24 05/20/24
06:59 06:59 06:59
Intake Total 2172.0 / 2202.8 1841.3 / 1841.3
Output Total 1200 / 1200 800 / 800
Balance 972.0 / 1002.8 1041.3 / 1041.3
SaO2 95
Nasal Cannula flow liters per 2
minute
Physical Exam
General: Respiratory Distress (n) and Comfortable
HEENT: Normocephalic and Anicteric
Cardiovascular: Regular Rhythm, Murmur and Peripheral Edema
Respiratory: Clear (Diminished breath sounds at both bases and rare crackles), Wheeze (n), Crackles (Rare crackles), Rhonchi (n), Non-Labored Respirations, Accessory Resp Muscle Use (n) and Stridor (n)
GI: Soft, Non Distended and Non Tender
Neurology: Awake, Alert and No Motor Deficits
Skin: Warm, Good Color, Cyanosis (n), Jaundice (n) and Rash
Labs/Micro/Reports
Lab Data
05/19/24 03:40
05/19/24 03:40
Microbiology
05/17/24 01:21 Blood/Venous Blood Culture - Preliminary
Klebsiella pneumoniae
05/17/24 01:21 Blood/Venous Gram Stain - Final
05/17/24 13:59 Pleural Fluid Body Fluid Culture - Preliminary
No Growth After 18-24 Hours
05/17/24 13:59 Pleural Fluid Gram Stain - Preliminary
05/17/24 06:14 Nose MRSA Screen - Final
No Methicillin Resistant Staphylococcus aureus isolated.
--- NOTE | 2024-05-19 07:51 | W.PN.HOSP.TC ---
Today's Communication/Plan
-
see A/P
Assessment / Plan
Assessment / Plan
HPI: 74 yo M with [facility] ERCP/stone extraction, stent placement and biopsy Sep 2023, subsequently diagnosed with poorly differentiated adeno Ca / cholangiocarcinoma Oct 2023; p/w SOB.
A/P:
# Now Septic shock with Klebsiella bacteremia, source possibly acute cholangitis
blood culture positive for Klebsiella
check repeat blood culture until clearance
CXR noted small left pleural effusion with associated atelectasis and/or pneumonia, slightly progressed.
CT chest: No pulmonary embolism. Moderate bilateral pleural effusions with associated compressive atelectasis. Mild pulmonary interstitial and alveolar edema.
Procal elevated at 0.89
s/p R thoracentesis 05/17, removed 1050 cc of clear miya pleural fluid. Pleural fluid likely exudative
Plan for Left thoracentesis
Cont Zosyn,
Off Vanc, negative MRSA screen
Cont Levophed, wean as tolerated
Off vasopressin
Mortgage Analyst/ID on board
# Acute anemia , unclear cause
Hgb dropped from 8.4 to 6.8 -> 2 units PRBC -> Hgb improved 8.1
GI on board
# Acute hypoxic RF
weaned from high flow NC to 2L NC, cont to wean as tolerated. Pt not on home O2
CT PE neg for PE
# Elevated LFT suspect 2/2 cholangiocarcinoma
# HX Biliary stent
Trend LFT
GI on board
# Thrombocytopenia
# Suspect ACD
Trend CBC
# Benign Hypertension
Hold FINE CRAFT ARTIST BP meds Coreg/hydralazine
# DMT2
Hold PO medications acutely.
Insulin drip per DM CONCRETE TESTER
# h/o A flutter
cont FINE CRAFT ARTIST amiodarone
# Hypomagnesemia
repleted IV Mag
DVT Px: SCD
Code: Full code
Diet: Clears
DW RN
updated on the phone
Critical care time 37 min
Anticipated Discharge: > 48 hours
Subjective/Interval History
-
Date of Service: May 19, 2024
Objective Data
-
Labs:
Laboratory Results
05/18/24 05/19/24
21:07 03:40
WBC 21.3 H
Hgb 8.1 L
Hct 23.5 L
Plt Count 43 L
Sodium 133 L 134 L
Potassium 3.6 3.8
Chloride 99 100
Carbon Dioxide 30 31 H
BUN 38 H 39 H
Creatinine 1.6 H 1.6 H
Glucose 98 90
Calcium 7.4 L 8.2 L
Total Bilirubin 9.2 H
AST 367 H
ALT 209 H
Alkaline Phosphatase 1756 H
Vital Signs:
Vital Signs
Temp Pulse Resp BP Pulse Ox
36.5 C 60 22 140/61 95
05/19/24 07:09 05/19/24 06:30 05/19/24 06:30 05/19/24 06:30 05/19/24 06:30
I&O
05/18/24 05/19/24 05/20/24
06:59 06:59 06:59
Intake Total 2172.0 / 2202.8 1841.3 / 1841.3
Output Total 1200 / 1200 800 / 800
Balance 972.0 / 1002.8 1041.3 / 1041.3
Review of Systems
-
All other systems: Reviewed and negative
Physical Exam
-
General: Well Developed, Well Nourished, Respiratory Distress, Conversant and Appears Chronically Ill
HEENT: Normocephalic, Atraumatic, Nose Appears Normal, Ears Appear Normal and Oxygen (2L NC)
Respiratory: Clear to Auscultation and Non Labored Respirations; Negative Accessory Resp Muscle Use
Cardiac: Regular Rhythm and S1/S2
GI: Soft, Nontender, Nondistended and Normal Bowel Sounds
Musculoskeletal: Edema, Right Lower Extrem and Edema, Left Lower Extrem
Skin: Warm and Dry
Neuro: Awake, Alert and Oriented
Psych: Calm and Intact Judgement/Insight
Data Reviewed
-
Labs: Labs Reviewed by me
[2024-05-19] MEDS: PACERONE 200 MG PO (07:53)
[2024-05-19] MEDS: DESENEX/MITRAZOL/ZEASORB 1 APPLIC TOPICAL ×2 (07:53→19:42)
[2024-05-19] MEDS: PROTONIX IV 40 MG IV (07:53)
[2024-05-19] MEDS: NSS (PRESERVATIVE FREE) 10 ML IV (07:53)
[2024-05-19] MEDS: CYMBALTA DELAYED RELEASE 20 MG PO ×2 (07:53→19:42)
--- NOTE | 2024-05-19 08:05 | PN.DE.MGMTRT ---
Insulin Management
- -
05/19/2024: Diabetes Management F/U:
74 year old male who presented to the ED with SOB, N/V 2/2 Acute Hypoxic respiratory failure due to PNA and Sepsis.
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
insufficiency, Ascites, Anemia and NIDDM.
A1C 5% (was 7.8% in 12/2023), Cr 1.4, eFGR 52.09. According to the pt's - Brea, pt was taking Glipizide 2.5mg in AM, 5mg in PM, Metformin 1000mg BID and Actos 15mg daily prior to admission. NOT Glargine 14 units @ HS and Lispro SS as noted in
his chart
Pt awake, A/O x3, resting in bed, Off pressors, able to discuss diabetes mgt, still not able to provide details of mgt at home
05/18 noted for Hyperglycemia up to 386 started on glycemic protocol.
Glucose has improved while on insulin infusion in range of 71 to 111, requiring 0.1 to 1.2 units of insulin/hr
Will transition off drip to SQ insulin given SUDHIR with Cr of 1.4-->1.6 today (baseline 0.9)
Give Lantus 10 units NOW, drip off 1hr after Lantus has been administered. Will add NovoLog 5 units AC and low corrective with meals.
Pt states he doesn't have much of an appetite, d/w pt's nurse to use corrective insulin during period of reduced food intake
Will closely follow and reassess for readiness to resume Metformin and glipizide when pt is eating more and kidney fxn improves.
STOP ACTOS
Pt has glucose meter at home and has been monitoring once a day-fasting
Diabetes History
- -
Type of Diabetes: 2
Pre-Admission Diabetes Regimen
05/18/24 05/19/24
21:07 03:40
Creatinine 1.6 H 1.6 H
Lab Results
Hemoglobin A1c 5.0 % (4.0-5.6) 05/17/24 05:53
Insulin Pump Settings
IP Diabetes Regimen
05/18/24 05/18/24 05/18/24
11:48 13:32 14:30
Glucose
POC Glucose 318 H 259 H 188 H
05/18/24 05/18/24 05/18/24
15:28 16:31 18:25
Glucose
POC Glucose 131 H 89 97
05/18/24 05/18/24 05/18/24
20:23 21:07 22:33
Glucose 98
POC Glucose 96 109 H
05/19/24 05/19/24 05/19/24
00:27 01:27 02:26
Glucose
POC Glucose 71 98 99
05/19/24 05/19/24 05/19/24
03:39 03:40 04:38
Glucose 90
POC Glucose 104 H 96
05/19/24
06:09
Glucose
POC Glucose 111 H
Meal type: Dinner
Amount consumed: 15%
Patient Education
[2024-05-19 08:13] LABS: Glucose - Point of Care 79 mg/dl (70-99)
[2024-05-19] MEDS: LANTUS 0.1 UNITS SC (09:03)
[2024-05-19 09:14] LABS: Glucose - Point of Care 90 mg/dl (70-99)
--- NOTE | 2024-05-19 09:47 | W.PN.ID1 ---
Date of Service
Date of Service: May 19, 2024
Today's Communication
Continue antibiotics.
Assessment / Plan
Leukocytosis
Nausea/vomiting
- improved
Bilateral pleural effusions
- s/p thoracentesis
Cholangiocarcinoma
Clinical sepsis
- blood cultures with Klebsiella
Transaminitis
Hyperbilirubinemia
A-fib
Cholangiocarcinoma
GERD
HTN
Dyslipidemia
NIDDM
Depression
Sleep apnea (on CPAP)
Hx pericarditis
Renal insufficiency
Ascites
Anemia
Recommendations:
Continue with Zosyn.
Aerobic blood culture bottle from 05/18 positive for gram-positive cocci. Not clear if contaminant or true. Awaiting identification.
Monitor white count and temperature curve.
Pressors being weaned.
Discharge note from [facility] reviewed. Patient found to have abdominal collections during an admission in February and was discharged on Cipro/metronidazole.
Follow pending cultures.
Given improved stability of patient, consider repeat CT of abdomen and pelvis.
Patient remains critically ill in intensive care unit at this time.
����������������������������������������������������������
Chief Complaint
-: Clinical Sepsis and Pneumonia
Subjective / Review of Systems
Patient seen and examined. Reports feeling improved today. Pressor requirements decreasing
Vital Signs / Physical Exam
Vital Signs
Vital Signs
Temp Pulse Resp BP Pulse Ox
97.7 F 62 22 122/63 96
05/19/24 07:09 05/19/24 07:53 05/19/24 07:30 05/19/24 07:53 05/19/24 08:48
Physical Exam
Constitutional: Comfortable, Chronically Ill and Non-toxic
Eyes: No Conjunctival Hemorrhage and Sclera Anicteric
Cardiovascular: Regular Rate and S1/S2; Negative S3/S4
Pulmonary: Coarse and Non Labored; Negative Rhonchi
Gastrointestinal: Soft, Non Distended, Normal Bowel Sounds, No Rebound and No Guarding
Extremities: Negative Edema, Cyanosis or Erythema
Skin: Negative Rash or Jaundice
Psychological: Calm
Lines: Port
Objective Data
Lab Data
Lab Results
05/19/24 03:40
05/19/24 03:40
PT 15.7 Sec (11.4-14.6) H 05/17/24 05:53
INR 1.26 05/17/24 05:53
APTT 30.5 Sec (23.4-35.0) 05/17/24 05:53
Estimated Creat Clear 41 ml/min 05/19/24 03:40
Lactic Acid Cancelled 05/17/24 17:40
Total Bilirubin 9.2 mg/dl (0.2-1.3) H 05/19/24 03:40
AST 367 U/L (17-59) H 05/19/24 03:40
ALT 209 U/L (0-50) H 05/19/24 03:40
Alkaline Phosphatase 1756 U/L (38-126) H 05/19/24 03:40
Most recent labs reviewed.
Micro Results:
05/17/24 01:21 Blood Culture - Final
Blood/Venous Klebsiella pneumoniae
Gram Stain - Final
05/18/24 08:25 Blood Culture - Preliminary
Blood/Venous Positive culture in progress
Gram Stain - Preliminary
05/17/24 13:59 Body Fluid Culture - Preliminary
Pleural Fluid No Growth After 18-24 Hours
Gram Stain - Preliminary
05/17/24 06:14 MRSA Screen - Final
Nose No Methicillin Resistant Staphylococcus aureus isolated.
Imaging:
CXR (05/17/2024): Official report pending. Film personally viewed and suggest a left upper lobe and right middle lobe infiltrate.
05/17/2024 CT chest: Official report pending. Bilateral pleural effusions noted. Significant atelectasis noted secondary to the effusions. Pneumonia suspected.
Care Review
Plan reviewed with: Physician (Critical Care)
[2024-05-19] MEDS: NOVOLOG FLEXPEN SC (11:21)
--- NOTE | 2024-05-19 11:27 | CM ---
CM following re: discharge planning.
Discussed in rounds, reviewed pt's chart. Per Rounds meeting, pt requires 4: NC of O2, continue supportive care, ID and cardiology following.
PT and OT evaluations pending. Both pt and his spouse requesting a new SNF. [facility] offered a bed based on bed availability on the day of discharge.
D/C plan: [facility] when medically stable.
CM will follow with discharge plan updates as hospitalization progresses
[2024-05-19] MEDS: NOVOLOG FLEXPEN-MODERATE RESISTANCE 1 UNITS SC ×2 (12:23→17:16)
[2024-05-19] MEDS: OMNIPAQUE 50 ML PO (12:24)
[2024-05-19 12:32] LABS: Glucose - Point of Care 168 mg/dl (70-99)
[2024-05-19] MEDS: ULTRAM 50 MG PO ×2 (12:32→19:41)
[2024-05-19] MEDS: ZOFRAN 4 MG IV (12:32)
[2024-05-19 12:41] LABS: Body Fluid pH 7.52
--- NOTE | 2024-05-19 12:46 | W.PN.GI.CBS2 ---
Addendum entered and electronically signed by Meseret Younger MD 05/19/24 21:17:
I saw and examined the patient.
The senior medical director's note was reviewed and I agree with the note.
Impression
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
-- Septic shock with gram-negative bacteremia
-- Elevated liver test -progression of malignancy versus stent occlusion
-- Right pleural effusion s/p thoracentesis
-- Multiple hospital admission in the recent past with sepsis -intra-abdominal abscess/cholangitis
plan
overall clinically significant improvement in mental status/ breathing
discussed with hospitalist/ ID/ ICU team - although not optimal will get CT abd/ pel with oral contrast ( will hold off on IV contrast with SUDHIR )
continue abx
trend LFT
medical team/ oncology to discuss GOC / prognosis
Original Note:
Today's Communication / Plan
-
Will get abdominal CT today to guide further recommendations.
Assessment / Plan
-
Patient is 74 year old male with past medical history of metastatic gallbladder adenocarcinoma/cholangiocarcinoma, afib/aflutter, cardiomyopathy, htn, hld, DM, J CARLOS, pericarditis who presented to [facility] from [facility] 05/17 for shortness of breath;
GI consulted for abnormal LFTs and his cancer history.
Summary of clinical course:
09/2023 at : cholecystitis managed with cholecystostomy tube and went on to have ERCP, EUS, spyglass dx'd with biliary stricture bx adenocarcinoma --> then received care at [facility]
11/17/23: ex-lap with cholecystectomy, partial tumor resection, lysis of adhesions; (cx Morganella and Citrobacter koseri)
11/2023: admitted for postop abdominal abscess (cx Morganella morgani and Bacteroides fragilis); treated with IR drain into gallbladder fossa collection and 7 days bactrim/augmentin
12/2023: repeat CT seemed improved --> started chemotherapy
03/17-03/19: admitted with new perihepatic abscess. Not amenable for IR drainage; treated with cipro/flagyl for 2-3 weeks, plan was for repeat imaging prior to stopping antibiotics
04/07-04/12: admitted for sepsis. CT: 'small volume perihepatic fluid collection extending into anterior abdominal wall, not significantly changed since 03/10/24 and may be related to resolving postop collection. Hypodense lesion in the right hepatic
lobe at the site of presumed bile leak when compared to 12/04/23 and may be resolving biloma. Well positioned CBD stent however with mild intrahepatic biliary duct dilation similar in appearance to 03/10/24.' IR aspirated 6mL gelatinous pus, cultures
did not grow any organisms; discharged on 2 weeks cipro/flagyl with plan to repeat CTAP 04/23
04/24-05/05: admitted for acute cholangitis and sepsis; hospitalization was also notable for acute renal failure, GI bleeding while on anticoagulation for afib/aflutter, HFrEF (35%), gastric outlet obstruction, acute hypoxic respiratory failure. He
underwent ERCP with plastic stent replacement on 04/26 (findings/interventions: D2 stricture making passage of scope and access to papilla difficult, evidence of prior sphincterotomy, RASD stricture s/p balloon dilation and drainage of purulent
material, removal of previous stent, placement of two [id number] plastic biliary stents were placed one each in the RASD and LHD segment III). Repeat EGD 05/04 to evaluate GIB was unrevealing. At that time he declined further capsule study. He is no
longer on any anticoagulation.
Impression:
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
- S/p partial cholecystectomy. S/p multiple EGD/ERCP with stent placements.
- Last chemotherapy treatment was 03/03/24; this was stopped in the setting of infections, which he has been in and out of the hospital for.
- Next appointment with oncologist at [facility] (Dr. Mejia) was planned for 05/20/24 with the goal of discussing roll of additional chemotherapy. However, he has not been a candidate for systemic treatment given his multiple hospitalizations and
infections over the past few months.
Abnormal LFTs- transaminitis, hyperbilirubinemia
- Most recent stent placement on 04/26 was with a plastic stent. Per discussion with Dr. Mejia, his total bilirubin trended down from 3.5 to 1.1 after stents, his AST/ALT were relatively normal, and his alk phos was consistently elevated [id number].
Awaiting hospital records from [facility] for his most recent admission.
- Given increase in total bilirubin from 2.5 to 9.7 yesterday, concern for possible stent occlusion secondary to luminal impaction, retained stone, or tumor growth. Today 9.2, reassured by stabilization/slight downtrend in combination with improving
clinical status. Still needs further evaluation.
- Concern for fulminant liver failure vs DIC given leukocytosis and thrombocytopenia; also concerning for high risk of bleeding during procedures at this time.
Sepsis, requiring pressors
- Pressor requirements improving, now on levophed only (vasopressin discontinued)
- Initial blood cultures 05/17- positive for Klebsiella pneumoniae
- Repeat blood cultures 05/18- positive for gram-positive cocci; not clear if contaminant or true; awaiting identification
- ID following- on zosyn since 05/17
Anemia
- Hgb 8.4 on admission; previously 9.0 in November
- S/p 1u pRBC transfusion 05/18, appropriate rise in hgb
Recent GI bleed, unknown origin
- No longer on anticoagulation
- No obvious source of GI bleed or active ongoing bleed
?Intraabdominal abscess vs new fluid collection/cyst
- Abdominal US 05/17 showed slightly irregular fluid collection adjacent to sugey hepatis, 2.0x2.7x1.9 cm
Thrombocytopenia
Leukocytosis
Gastric outlet obstruction
Bilateral pleural effusions
- Right: s/p IR thoracentesis of 1050mL 05/17; culture NG at 48h, cytology pending
- Left: s/p IR thoracentesis of 1000mL 05/19; culture and cytology pending
Afib/aflutter- not on anticoagulation
HFpEF- echo 05/17 EF 60-65%
Acute hypoxic respiratory failure
GERD
HTN
Dyslipidemia
Depression
Renal insufficiency
Recommendations:
- Consider inpatient oncology consultation to facilitate discussion of prognosis of his cancer.
- Awaiting records from [facility] from most recent hospitalization to compare imaging and labs.
- Will obtain abdominal CT today to evaluate fluid collection vs intraabdominal abscess, progression of cancer, possible biliary obstruction.
- Discussed case with Dr. Marie regarding possible ERCP and biliary stent exchange; will review again when results of abd CT available.
- Further recommendations to come.
Subjective
Subjective
Date of Service: May 19, 2024
Feeling better today. He denies abdominal pain, bloating, nausea, vomiting, dysphagia, diarrhea, constipation. Tolerating clear liquid diet. Only complaint is sore bottom.
Objective
Data Reviewed
Laboratory Data:
Laboratory Results
05/19/24 03:40
05/19/24 03:40
Laboratory Results
PT 15.7 Sec (11.4-14.6) H 05/17/24 05:53
INR 1.26 05/17/24 05:53
APTT 30.5 Sec (23.4-35.0) 05/17/24 05:53
Magnesium 2.0 mg/dl (1.6-2.3) 05/19/24 03:40
Total Bilirubin 9.2 mg/dl (0.2-1.3) H 05/19/24 03:40
AST 367 U/L (17-59) H 05/19/24 03:40
ALT 209 U/L (0-50) H 05/19/24 03:40
Alkaline Phosphatase 1756 U/L (38-126) H 05/19/24 03:40
Vital Signs and I&O:
Vital Signs
Temp Pulse Resp BP Pulse Ox
96.5 F L 67 23 100/46 86
05/19/24 12:24 05/19/24 12:04 05/19/24 12:04 05/19/24 12:04 05/19/24 11:30
I&O
05/18/24 05/19/24 05/20/24
06:59 06:59 06:59
Intake Total 2172.0 / 2202.8 1841.3 / 1850.0 143.8 / 143.8
Output Total 1200 / 1200 800 / 800 200 / 200
Balance 972.0 / 1002.8 1041.3 / 1050.0 -56.2 / -56.2
Physical Exam
Physical Exam
General: Resting comfortably in bed, no acute distress. More alert and conversant today.
Heart: Regular rate and rhythm.
Lungs: Nonlabored breathing.
GI: Normal bowel sounds present. Abdomen soft, nontender, nondistended. No rebound, rigidity, guarding.
[2024-05-19 12:58] LABS: Body Fluid Glucose 102 mg/dl; Body Fluid LDH 341 U/L; Body Fluid Protein 2.5 g/dl
--- NOTE | 2024-05-19 13:33 | PTCARENOTE ---
Assessment unchanged. Presently oin 5mcg/min Levophed will continue to titrate as tolerated. Glycemic protocol dc'd following accu data trends. NPO for lunch. Back and forth from IR. Prepping for ct scan. Then follow up plan of cares. Antibiotics
ongoing. at bedside. Review and reinforced plan of cares. Continue with skin cares and turning protocols. Continue with hourly rounds and frequent patient safety checks.
[2024-05-19 14:22] LABS: Body Fluid Mononuclear 67.2 %; Body Fluid Polymorphonuclear 32.8 %; Body Fluid WBC 70 /CUMM
[2024-05-19 14:28] LABS: Body Fluid Second Tech LD
--- NOTE | 2024-05-19 15:02 | PTCARENOTE ---
Patient received from Jose Armando SAHA. Patient presents as assessed. Alert and oriented x3. NSR with BBB on monitor. Patient maintains on Levophed drip. Edema as documented. Patient maintains on 2L NC. Abdomen soft, non-tender. Urinal at bedside. Skin and
sclera jaundiced. Wound dressings CDI. Patient offers no complaints currently.
--- NOTE | 2024-05-19 16:00 | PTCARENOTE ---
Patient assessment overall unchanged. Patient offers no complaints currently.
--- NOTE | 2024-05-19 16:24 | W.PN.CARDCBS ---
Today's Communication / Plan
-
for thoracentesis.
Lasix 20mg Iv x1
Cont supportive care with Abx and pressors
Cont Amio
Impression / Plan
-
PCP: Dr. Gordon
Sample Preparation Supervisor: Dr. Gonsalez
Oncologist: Dr. Sebastian Mejia ([phone])
Impression:
Presented with SOB, N/V
Acute hypoxic respiratory failure
Acute HFrEF
Sepsis
Cardiomyopathy, EF 35%
Paroxysmal atrial flutter
Not anticoagulated due to GIB
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
s/p biliary stenting and partial cholecystectomy
Hypertension
Hyperlipidemia
DM2
J CARLOS on CPAP
h/o pericarditis
Echo 05/03/2024 @ [facility]: EF 35%, mild to moderate TR, moderate pulmonary hypertension, estimated PAP 54 mmHg
Echo 05/17/2024: EF 60%, Flattned RV, mild-mod TR, PA pressure 70
Plan:
-Continue pressors for supportive care and treatment of sepsis. Continue antibiotics.
-Will give Lasix 20mg iV x1
-Echo with continued pulm hypertension but CT scan with no pulmonary embolism. Will need diuresis.
-Wean Levophed and vasopressin if possible
-Agree with thoracentesis to improve volume.
-Hemoglobin improved to 8. Remains in sinus. Continue amiodarone.
-May consider ischemic evaluation while inpatient versus outpatient to evaluate for coronary disease given new cardiomyopathy.
-He was on chemotherapy with cisplatin, durvalumab and gemcitabine. Last treatment 02/2024. Chemo discontinued due to recurrent infection.
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
mellitus type 2, J CARLOS on CPAP, and prior pericarditis. He presents to ER for evaluation of shortness of breath and vomiting. He has been at [facility] following recent hospitalization at [facility] 04/24/2024 - 05/06/2024 where he was admitted with
cholangitis, new cardiomyopathy, and new atrial flutter. While there, he was started on amiodarone and spontaneously converted to sinus rhythm. He was attempted on anticoagulation, however developed GI bleed with this, requiring 2 units PRBCs.
Anticoagulation was stopped and he has had no recurrent arrhythmia noted since that time. During this hospitalization, he also had echocardiogram which showed new cardiomyopathy with EF 35%. There was consideration for stress testing during this
hospitalization, however it was not performed. He denies any chest pain. He reportedly had recurrent abdominal pain yesterday with episode of vomiting. Then this morning he had shortness of breath and came to ER for evaluation. In ER, he was
found to have concern for sepsis as well as acute heart failure exacerbation. He was given a single dose of IV Lasix in the emergency room, and was also started on IV antibiotics. Cardiology consulted for evaluation. At this time, patient denies
any chest pain or shortness of breath, does admit to some weakness.
Progress Note - Sample Preparation Supervisor
Subjective
Date of Service: May 19, 2024
denies chest pains. Remains in sinus. Febrile
Objective
Labs:
05/19/24 03:40
05/19/24 03:40
Labs
Hgb 8.1 g/dL (13.0-18.0) L 05/19/24 03:40
Hct 23.5 % (39.0-52.0) L 05/19/24 03:40
Plt Count 43 10^3/uL (130-400) L 05/19/24 03:40
PT 15.7 Sec (11.4-14.6) H 05/17/24 05:53
INR 1.26 05/17/24 05:53
APTT 30.5 Sec (23.4-35.0) 05/17/24 05:53
Sodium 134 mmol/L (135-145) L 05/19/24 03:40
Potassium 3.8 mmol/L (3.5-5.1) 05/19/24 03:40
BUN 39 mg/dl (9-20) H 05/19/24 03:40
Creatinine 1.6 mg/dL (0.7-1.3) H 05/19/24 03:40
Glucose 90 mg/dl (70-99) 05/19/24 03:40
Troponins
05/17/24
01:21
Troponin I 0.012
Vital Signs and I&O:
Vital Signs
Temp Pulse Resp BP Pulse Ox
96.5 F L 63 32 109/54 100
05/19/24 12:24 05/19/24 13:00 05/19/24 13:00 05/19/24 13:00 05/19/24 14:58
Vital Signs
Temp Pulse Resp BP Pulse Ox
96.5 F L 63 32 109/54 100
05/19/24 12:24 05/19/24 13:00 05/19/24 13:00 05/19/24 13:00 05/19/24 14:58
Intake & Output
05/17/24 05/18/24 05/19/24 05/20/24
06:59 06:59 06:59 06:59
Intake Total 2172.0 / 2202.8 1841.3 / 1850.0 1521.3 / 1521.3
Output Total 200 / 200 1200 / 1200 800 / 800 500 / 500
Balance -200 / -200 972.0 / 1002.8 1041.3 / 1050.0 1021.3 / 1021.3
[2024-05-19] MEDS: TYLENOL 1000 MG PO (16:43)
[2024-05-19] MEDS: LASIX 20 MG IV (16:43)
[2024-05-19] MEDS: NOVOLOG FLEXPEN 5 UNITS SC (17:16)
[2024-05-19 17:26] LABS: Glucose - Point of Care 159 mg/dl (70-99)
[2024-05-19 19:31] LABS: Glucose - Point of Care 141 mg/dl (70-99)
--- NOTE | 2024-05-19 20:00 | PTCARENOTE ---
rec'd patient. assessment as documented. oriented x3. SB/SR on monitor w/ BBB. levo gtt continues to maintain MAP >65. on 2L NC, denies SOB. poor appetite, fluids encouraged, urinal at bedside. PRN tramadol given for sacral pain. pt repositioned
with pillows. call reilly within reach, care ongoing.
[2024-05-19 22:20] LABS: Glucose - Point of Care 117 mg/dl (70-99)
[2024-05-20] VITALS (52 sets, daily range): BP systolic 81–134; BP diastolic 33–72; PULSE 63–64; O2SAT 94; BMI 26.3
--- NOTE | 2024-05-20 | PTCARENOTE ---
no changes in assessment, on 2L NC, levo gtt infusing per protocol
[2024-05-20] MEDS: ZOSYN 50 IV ×4 (04:45→22:41)
--- NOTE | 2024-05-20 04:54 | PTCARENOTE ---
AM labs sent, pt repositioned off sacrum q2h, on 2L NC, offers no complaints at this time, call reilly within reach, care ongoing
[2024-05-20 05:01] LABS: % Basophils 0.2 % (0-2); % Eosinophils 1.6 % (0-6); % Immature Granulocytes 2.8 % (0-0.5); % Lymphocytes 2.6 % (20.5-51.1); % Monocytes 8.3 % (1.7-9.3); % Neutrophils 84.5 % (42.2-75.2); Absolute Eosinophils 0.3 10^3/uL (0-0.7); Absolute Immature Granulocytes 0.4 10^3/uL (0-0.05); Absolute Lymphocytes 0.4 10^3/uL (1.2-3.4); Absolute Monocytes 1.3 10^3/uL (0.1-0.6); Absolute Neutrophils 13.2 10^3/uL (1.4-6.5); Hematocrit 23.7 % (39.0-52.0); Mean Corp Hgb Conc. 33.8 g/dL (33.0-37.0); Mean Corpuscular Hgb 30.7 pg (27.0-31.0); Mean Corpuscular Volume 90.8 fL (80.0-94.0); Nucleated Red Blood Cells % 0 % (-); Platelet Count 43 10^3/uL (130-400); Red Blood Cell Count 2.61 10^6/uL (4.70-6.10); Red Cell Dist. Width 18.8 % (11.5-14.5); White Blood Cell Count 15.6 10^3/uL (4.8-10.8)
[2024-05-20 05:27] LABS: ALT (SGPT) 256 U/L (0-50); AST (SGOT) 472 U/L (17-59); Albumin 2.2 g/dl (3.5-5.0); Blood Urea Nitrogen 37 mg/dl (9-20); Calcium 7.6 mg/dl (8.4-10.2); Carbon Dioxide 30 mmol/L (22-30); Chloride 99 mmol/L (98-107); Estimated Creatinine Clearance 41 ml/min; Glucose 83 mg/dl (70-99); Magnesium 1.8 mg/dl (1.6-2.3); Potassium 3.6 mmol/L (3.5-5.1); Sodium 133 mmol/L (135-145); Total Protein 4.6 g/dl (6.3-8.2); eGFR 44.38
[2024-05-20 05:36] LABS: Alkaline Phosphatase 2043 U/L (38-126)
[2024-05-20] MEDS: KCL 50 IV (06:11)
--- NOTE | 2024-05-20 07:42 | W.PN.INTV ---
Today's Communication / Plan
Recommendations
Antibiotics
Wean pressors
Add midodrine
Wean oxygen
Monitor for pleural fluid reaccumulation
GI following-considering ERCP
Advance diet
PT/OT
If able to be weaned off pressors then could be transferred out of ICU-pulmonary will continue to follow
Assessment
-
74-year-old male with history of atrial fibrillation, hypertension, sleep apnea, restrictive lung disease and diabetes with a recent diagnosis of cholangiocarcinoma with stents status post chemo recently complicated by infection and returns with
pulse ox at home in the 50s, emesis and suspected septic shock-airborne operations consulted for sepsis/critical care management 05/17/2024.
Sepsis with shock unresponsive to fluids requiring pressors
Leukocytosis-WBC 16.1
CHF with reduced EF
Pneumonia
Bilateral right greater than left pleural effusion
Status post right thoracentesis 05/17/24--1 L clear miya fluid, exudate, cultures negative, cytology pending
Status post left thoracentesis 05/19/24--1000 mL clear miya fluid
Anemia-hemoglobin 8.4-normocytic
Thrombocytopenia-platelet 104
Mild hyperglycemia
Elevated LFTs
Hypoalbuminemia
Conditions present prior to admission:
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
Atrial fibrillation.
Hypertension.
Hyperlipidemia.
Diabetes.
Depression.
J CARLOS on CPAP.
Restrictive lung disease.
Decreased diffusing capacity.
Postnasal drip.
Anemia.
Septoplasty. Biliary stenting x 2.
Plan
Continues to be critically ill on pressors though requirements have decreased-still on norepinephrine 6
Supplemental oxygen weaned to nasal cannula
BiPAP if needed
Intubate and mechanically ventilate if necessary-reviewed CODE STATUS with him-wants to be a full code including CPR, shocking and intubation
Aspiration precautions
Nebulizers if needed
CT chest 05/17/2024-no evidence for pulm embolism, moderate bilateral pleural effusions with compressive atelectasis
Chest x-ray 05/18/2024-findings of CHF, small left pleural effusion
Bilateral pleural effusions
Thoracentesis-right side 05/17/24--1.05 L clear miya fluid, WBC 114, glucose 83, total protein 3.1, LDH 242, pH 7.5, cultures negative, cytology pending
Thoracentesis-left side 05/19/24--1000 mL clear miya fluid
Monitor for fluid reaccumulation-CT abdomen 05/19/2024 with probable right pleural fluid partial reaccumulation
Cultures reviewed
Blood culture positive for Klebsiella
Blood culture 05/18/2024 positive for gram-positive cocci
Repeat blood cultures-pending
Continue antibiotics-currently on Zosyn
Infectious disease following-correspondence reviewed
Monitor leukocytosis
Decrease IV fluids
Continue pressors-norepinephrine wean-vasopressin discontinued
Cardiology [id number] with Dr. Lema
Gentle diuresis if blood pressure tolerates
Note: Echocardiogram 05/17/2024-EF 60-65%, PA systolic estimated 70-EF improved from 35%
Troponin trended
Follow renal function, electrolytes, intake/output, lower extremity edema and weight
Replace electrolytes as needed
Status post thoracentesis-right
Left chest ultrasound--small to moderate on the left enough for attempted thoracentesis
Left thoracentesis 05/19/2024--1000 mL, clear miya fluid
Monitor blood sugar
Insulin supplementation as needed
Monitor hemoglobin-yesterday 6.8-received 1 unit 05/18/2024-now 8.1
Transfuse as needed
Heme test stools
GI evaluation ongoing-correspondence reviewed
ERCP per GI
CT abdomen and pelvis 05/15/2024-lack of IV contrast limits intra-abdominal abscess or malignant soft tissue evaluation, small periportal fluid attenuation, bile duct stent appears well-positioned, mild abdominal ascites, patchy airspace
opacifications lingula and left lower lobe suspicious for pneumonia, moderate right and small left pleural effusion
PPI
Monitor LFTs-still climbing-quite icteric
DVT prophylaxis-mechanical
Dr. Fofana updates at the bedside daily
DVT prophylaxis-mechanical
GI prophylaxis-on pantoprazole
Nutrition-advance diet per GI
Early mobilization/bedside range of motion
Reviewed [facility] records from discharge 03/15/20240600-[id number] abscesses, seen by infectious disease and placed on long-term antibiotics-Cipro and metronidazole, follows Dr. Mejia at [facility] oncology treated with
gemcitabine, cisplatin, durvalumab-last dose 03/03/2024
Outpatient oncology [id number] to resume chemotherapy once infections under control
Patient was last seen pulmonary/sleep disorders office 04/22/[address] Fofana and has a follow-up appointment 05/27/2024 at 1015 with Kae Garcia NP
Critical care statement: A total of 42 minutes of critical care time was provided for this patient today. This includes management of unstable vital signs, evaluation of the patient at bedside, reviewing the patient's pertinent medical records
including radiographs, pressor management, microbiology, laboratory evaluations, and discussion with primary team, consultants, pharmacy, nutrition, physical therapy, case management, charge nurse, critical care nursing, and respiratory therapy.
Diagnostic data:
Chest x-ray 05/17/2024-pulmonary edema with small bilateral pleural effusions
CT chest with PE protocol 10/24/20--no Pulmonary Embolism, no significant other abnormalities,Patient notified.
CT chest abdomen and pelvis 12/04/2023-multiple fluid collections in perihepatic region including collection within the gallbladder fossa, no evidence for metastatic disease in the chest abdomen or pelvis, mild prostate enlargement
Lower extremity ultrasound 02/09/2024-no evidence for lower extremity deep venous thrombosis
Stress echocardiogram 06/12/20--no EKG or echocardiographic evidence of myocardial ischemia, lightheadedness and shortness of breath with exercise which resolved in recovery, overall low to intermediate risk study.
Spirometry 09/20/20--FEV1 2.3 L-77%, FVC 2.92 L-71%, no significant BD response. Mild restriction.
PFT 11/10/20--FEV1 2.7 L-91%, FVC 3.3, 1 L-79%, TLC 68%, RV 45%, DLCO 83%. Mild restriction and mild reduction in diffusing capacity.
Spirometry 09/26/21-FEV1 2.29 L, 88%, FVC 2.78 L-80%, no significant BD response. Mild restriction.
PFT 11/14/22-FEV1 2.25 L-78%, FVC 2.5 L 69% , TLC 63%, RV 40%, DLCO 76%. Mild to moderate restriction and mild reduction in diffusing capacity
Spirometry 07/16/23-FEV1 2.2-91%, FVC 2.7-79%,No significant BD response. Mild restriction.
Originally diagnosed around 2006 PSG-AHI-20, desaturation hillary 86%, CPAP 9 cm
PSG 09/16/18--AHI-16.7, desaturation hillary 84%, 0.7% time <90% saturation.
Subjective Dataa
Subjective Data
Date of Service:
Date of Service: May 20, 2024
Chief Complaint: Furnace Utility Operator Follow Up and Pulmonary Follow Up
Subjective:
Feels better, still on norepinephrine, no chest pain, shortness of breath improved, no abdominal pain
Review of Systems
General: Other (Per HPI)
Objective Data
Data Reviewed
Vital Signs / I&O / Oxygen:
Vital Signs
Temp Pulse Resp BP Pulse Ox
97.0 F 58 12 125/58 97
05/20/24 03:09 05/20/24 06:30 05/20/24 06:30 05/20/24 06:30 05/20/24 06:30
Intake and Output
05/19/24 05/20/24 05/21/24
06:59 06:59 06:59
Intake Total 1841.3 / 1850.0 2129.7 / 2129.7
Output Total 800 / 800 1400 / 1400
Balance 1041.3 / 1050.0 729.7 / 729.7
SaO2 97
Nasal Cannula flow liters per 2
minute
Physical Exam
General: Respiratory Distress (n) and Comfortable
HEENT: Normocephalic and Anicteric
Cardiovascular: Regular Rhythm, Murmur and Peripheral Edema
Respiratory: Clear (Diminished breath sounds at both bases and rare crackles), Wheeze (n), Crackles (Rare crackles), Rhonchi (n), Non-Labored Respirations, Accessory Resp Muscle Use (n) and Stridor (n)
GI: Soft, Non Distended and Non Tender
Neurology: Awake, Alert and No Motor Deficits
Skin: Warm, Good Color, Cyanosis (n), Jaundice (n), Rash and Other (Icteric)
Labs/Micro/Reports
Lab Data
05/20/24 04:45
05/20/24 04:45
Microbiology
05/19/24 11:55 Pleural Fluid Gram Stain - Preliminary
05/17/24 13:59 Pleural Fluid Body Fluid Culture - Preliminary
No Growth After 48 Hours
05/17/24 13:59 Pleural Fluid Gram Stain - Preliminary
05/17/24 01:21 Blood/Venous Blood Culture - Final
Klebsiella pneumoniae
05/17/24 01:21 Blood/Venous Gram Stain - Final
05/18/24 08:25 Blood/Venous Blood Culture - Preliminary
Positive culture in progress
05/18/24 08:25 Blood/Venous Gram Stain - Preliminary
05/17/24 06:14 Nose MRSA Screen - Final
No Methicillin Resistant Staphylococcus aureus isolated.
[2024-05-20] MEDS: NOVOLOG FLEXPEN-MODERATE RESISTANCE SC (07:46)
[2024-05-20] MEDS: CYMBALTA DELAYED RELEASE 20 MG PO ×2 (07:47→20:13)
[2024-05-20] MEDS: NOVOLOG FLEXPEN 5 UNITS SC ×2 (07:47→12:25)
[2024-05-20] MEDS: PACERONE 200 MG PO (07:48)
[2024-05-20] MEDS: PROTONIX IV 40 MG IV (07:48)
[2024-05-20] MEDS: DESENEX/MITRAZOL/ZEASORB 1 APPLIC TOPICAL ×2 (07:48→21:00)
--- NOTE | 2024-05-20 07:48 | W.PN.CARDCBS ---
Today's Communication / Plan
-
wean Levophed as possible.
Hold lasix today s/p thoracentesis
in sinus on Amio.
Hg stable at 8. Cont to hold anticoagulation.
Impression / Plan
-
PCP: Dr. Gordon
Cloth Boil Off Machine Operator: Dr. Gonsalez
Oncologist: Dr. Sebastian Mejia ([phone])
Impression:
Presented with SOB, N/V
Acute hypoxic respiratory failure
Acute HFrEF
Sepsis
Cardiomyopathy, EF 35%
Paroxysmal atrial flutter
Not anticoagulated due to GIB
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
s/p biliary stenting and partial cholecystectomy
Hypertension
Hyperlipidemia
DM2
J CARLOS on CPAP
h/o pericarditis
Echo 05/03/2024 @ [facility]: EF 35%, mild to moderate TR, moderate pulmonary hypertension, estimated PAP 54 mmHg
Echo 05/17/2024: EF 60%, Flattned RV, mild-mod TR, PA pressure 70
Plan:
-Now off vasopressin and remains on Levophed alone. Continue antibiotics.
-Doing better status post thoracentesis and Lasix x 1.
-Echo with continued pulm hypertension but CT scan with no pulmonary embolism. Hopefully can wean off Levophed today and then continue diuresis. Would hold Lasix for today.
-Hemoglobin stable at 8. Remains in sinus. Continue amiodarone. Cont to hold off on anticoagulation due to bleeding.
-May consider ischemic evaluation while inpatient versus outpatient to evaluate for coronary disease given new cardiomyopathy.
-He was on chemotherapy with cisplatin, durvalumab and gemcitabine. Last treatment 02/2024. Chemo discontinued due to recurrent infection.
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
mellitus type 2, J CARLOS on CPAP, and prior pericarditis. He presents to ER for evaluation of shortness of breath and vomiting. He has been at [facility] following recent hospitalization at [facility] 04/24/2024 - 05/06/2024 where he was admitted with
cholangitis, new cardiomyopathy, and new atrial flutter. While there, he was started on amiodarone and spontaneously converted to sinus rhythm. He was attempted on anticoagulation, however developed GI bleed with this, requiring 2 units PRBCs.
Anticoagulation was stopped and he has had no recurrent arrhythmia noted since that time. During this hospitalization, he also had echocardiogram which showed new cardiomyopathy with EF 35%. There was consideration for stress testing during this
hospitalization, however it was not performed. He denies any chest pain. He reportedly had recurrent abdominal pain yesterday with episode of vomiting. Then this morning he had shortness of breath and came to ER for evaluation. In ER, he was
found to have concern for sepsis as well as acute heart failure exacerbation. He was given a single dose of IV Lasix in the emergency room, and was also started on IV antibiotics. Cardiology consulted for evaluation. At this time, patient denies
any chest pain or shortness of breath, does admit to some weakness.
Progress Note - Cloth Boil Off Machine Operator
Subjective
Date of Service: May 20, 2024
No new fevers. Remains on Levophed. Did have some hypotension when rolling on his right side last night.
Objective
Labs:
05/20/24 04:45
05/20/24 04:45
Labs
Hgb 8.0 g/dL (13.0-18.0) L 05/20/24 04:45
Hct 23.7 % (39.0-52.0) L 05/20/24 04:45
Plt Count 43 10^3/uL (130-400) L 05/20/24 04:45
PT 15.7 Sec (11.4-14.6) H 05/17/24 05:53
INR 1.26 05/17/24 05:53
APTT 30.5 Sec (23.4-35.0) 05/17/24 05:53
Sodium 133 mmol/L (135-145) L 05/20/24 04:45
Potassium 3.6 mmol/L (3.5-5.1) 05/20/24 04:45
BUN 37 mg/dl (9-20) H 05/20/24 04:45
Creatinine 1.6 mg/dL (0.7-1.3) H 05/20/24 04:45
Glucose 83 mg/dl (70-99) 05/20/24 04:45
Vital Signs and I&O:
Vital Signs
Temp Pulse Resp BP Pulse Ox
97.0 F 58 12 125/58 97
05/20/24 03:09 05/20/24 06:30 05/20/24 06:30 05/20/24 06:30 05/20/24 06:30
Vital Signs
Temp Pulse Resp BP Pulse Ox
97.0 F 58 12 125/58 97
05/20/24 03:09 05/20/24 06:30 05/20/24 06:30 05/20/24 06:30 05/20/24 06:30
Intake & Output
05/18/24 05/19/24 05/20/24 05/21/24
06:59 06:59 06:59 06:59
Intake Total 2172.0 / 2202.8 1841.3 / 1850.0 2129.7 / 2129.7
Output Total 1200 / 1200 800 / 800 1400 / 1400
Balance 972.0 / 1002.8 1041.3 / 1050.0 729.7 / 729.7
Physical Exam
Physical Exam
GEN: No distress, awake, Ox3
HEENT: supple, anicteric, mmm
LUNGS: dec BS at bases
CV: Reg, S1/S2, 1/6 syst LSB, no gallop
ABD: soft, BS+, NT/ND
EXT: No edema
NEURO: Gross non-focal
SKIN: No rash
[2024-05-20] MEDS: NSS (PRESERVATIVE FREE) 10 ML IV (07:49)
[2024-05-20 07:58] LABS: Glucose - Point of Care 108 mg/dl (70-99)
--- NOTE | 2024-05-20 08:01 | W.PN.HOSP.TC ---
Today's Communication/Plan
-
see A/P
Assessment / Plan
Assessment / Plan
HPI: 74 yo M with [facility] ERCP/stone extraction, stent placement and biopsy Sep 2023, subsequently diagnosed with poorly differentiated adeno Ca / cholangiocarcinoma Oct 2023; p/w SOB.
A/P:
# Now Septic shock with Klebsiella bacteremia, source possibly acute cholangitis
blood culture positive for Klebsiella
check repeat blood culture until clearance
CXR noted small left pleural effusion with associated atelectasis and/or pneumonia, slightly progressed.
CT chest: No pulmonary embolism. Moderate bilateral pleural effusions with associated compressive atelectasis. Mild pulmonary interstitial and alveolar edema.
Procal elevated at 0.89
s/p R thoracentesis 05/17, removed 1050 cc of clear miya pleural fluid. Pleural fluid likely exudative
s/p L thoracentesis 05/19, removed 1000 cc of clear miya pleural fluid. Pleural fluid likely exudative
Cont Zosyn,
Off Vanc, negative MRSA screen
Cont Levophed, wean as tolerated
Off vasopressin
CT AP 05/19 was limited
Funeral Director/Embalmer/Owner/ID on board
# Acute anemia , unclear cause
Hgb dropped from 8.4 to 6.8 -> 2 units PRBC -> Hgb improved 8.0 today
GI on board
# Acute hypoxic RF, improving
high flow NC weaned to 2L NC, cont to wean as tolerated. Pt not on home O2
CT PE neg for PE
# Elevated LFT suspect 2/2 cholangiocarcinoma
# HX Biliary stent
Trend LFT
GI on board
# Thrombocytopenia
# Suspect ACD
Trend CBC
Platelet count 43 today
# SUDHIR
SCr 1.6 today, was 1.2 on admission
# Mild hyponatremia
# Benign Hypertension
Hold RESIDENTIAL DOOR INSTALLER BP meds Coreg/hydralazine
# DMT2
Hold PO medications acutely.
Off Insulin drip, DM LAYOUT MECHANIC on board
# h/o A flutter
cont RESIDENTIAL DOOR INSTALLER amiodarone
# Hypomagnesemia
repleted IV Mag
DVT Px: SCD
Code: Full code
Diet: Full liquid
DW RN
DW Funeral Director/Embalmer/Owner
updated on the phone
Critical care time 37 min
Anticipated Discharge: > 48 hours
Subjective/Interval History
-
Date of Service: May 20, 2024
Objective Data
-
Labs:
Laboratory Results
05/20/24
04:45
WBC 15.6 H
Hgb 8.0 L
Hct 23.7 L
Plt Count 43 L
Sodium 133 L
Potassium 3.6
Chloride 99
Carbon Dioxide 30
BUN 37 H
Creatinine 1.6 H
Glucose 83
Calcium 7.6 L
Total Bilirubin 12.0 H
AST 472 H
ALT 256 H
Alkaline Phosphatase 2043 H
Vital Signs:
Vital Signs
Temp Pulse Resp BP Pulse Ox
36.1 C 58 12 125/58 97
05/20/24 03:09 05/20/24 06:30 05/20/24 06:30 05/20/24 06:30 05/20/24 06:30
I&O
05/19/24 05/20/24 05/21/24
06:59 06:59 06:59
Intake Total 1841.3 / 1850.0 2129.7 / 2129.7
Output Total 800 / 800 1400 / 1400
Balance 1041.3 / 1050.0 729.7 / 729.7
Review of Systems
-
All other systems: Reviewed and negative
Physical Exam
-
General: Well Developed, Well Nourished, Respiratory Distress, Conversant and Appears Chronically Ill
HEENT: Normocephalic, Atraumatic, Nose Appears Normal, Ears Appear Normal and Oxygen (2L NC)
Respiratory: Clear to Auscultation and Non Labored Respirations; Negative Accessory Resp Muscle Use
Cardiac: Regular Rhythm and S1/S2
GI: Soft, Nontender, Nondistended and Normal Bowel Sounds
Musculoskeletal: Edema, Right Lower Extrem and Edema, Left Lower Extrem
Skin: Warm and Dry
Neuro: Awake, Alert and Oriented
Psych: Calm and Intact Judgement/Insight
Data Reviewed
-
CT Scan: Report Reviewed by me
Labs: Labs Reviewed by me
--- NOTE | 2024-05-20 08:33 | PN.DE.MGMTRT ---
Insulin Management
- -
05/20/2024: Diabetes Management Follow up:
Patient admitted with SOB, N/V 2/2 Acute Hypoxic respiratory failure due to PNA and Sepsis.
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
insufficiency, Ascites, Anemia and NIDDM.
A1C 5% (was 7.8% in 12/2023), Cr 1.4, eFGR 52.09. According to the pt's - Brea, pt was taking Glipizide 2.5mg in AM, 5mg in PM, Metformin 1000mg BID and Actos 15mg daily prior to admission. NOT Glargine 14 units @ HS and Lispro SS as noted in
his chart
Pt sleeping, I spoke to patients .
05/18 noted for Hyperglycemia up to 386 started on glycemic protocol.
Glucose has improved while on insulin infusion in range of 71 to 111, requiring 0.1 to 1.2 units of insulin/hr
Transitioned off glycemic protocol 05/19 with 10 units lantus, 5 units novolog ac with corrective insulin.
Glucose 05/19 ranged 90 to 159. Fasting this AM 83. Patient ordered clear liquids, taking very little PO. Pre lunch glucose 189. Will restart am lantus 10 units and reduce AC novolog to 3 units with low corrective.
Will closely follow and reassess for readiness to resume Metformin and glipizide when pt is eating more and kidney fxn improves.
STOP ACTOS
Pt has glucose meter at home and has been monitoring once a day-fasting
Diabetes History
- -
Type of Diabetes: 2
Pre-Admission Diabetes Regimen
05/20/24
04:45
Creatinine 1.6 H
Lab Results
Hemoglobin A1c 5.0 % (4.0-5.6) 05/17/24 05:53
Insulin Pump Settings
IP Diabetes Regimen
05/19/24 05/19/24 05/19/24
09:03 12:21 17:15
Glucose
POC Glucose 90 168 H 159 H
05/19/24 05/19/24 05/20/24
19:20 22:09 04:45
Glucose 83
POC Glucose 141 H 117 H
05/20/24
07:46
Glucose
POC Glucose 108 H
Meal type: Lunch
Meal type: Breakfast
Amount consumed: 55%
Patient Education
--- NOTE | 2024-05-20 09:22 | PTCARENOTE ---
rec'd patient. assessment as documented. oriented x3. SB/SR on monitor w/ BBB. levo gtt continues to maintain MAP >65. on 2L NC, attempted to wean O2 unsuccessfully. denies SOB. poor appetite, fluids encouraged, advanced diet to full liq. urinal at
bedside. pt repositioned with pillows. call reilly within reach, care ongoing.
--- NOTE | 2024-05-20 09:31 | W.PN.GI.CBS2 ---
Addendum entered and electronically signed by Meseret Younger MD 05/20/24 14:54:
I saw and examined the patient.
The medical assistant per diem's note was reviewed and I agree with the note.
Impression
--Metastatic poorly differentiated gallbladder adenocarcinoma vs cholangiocarcinoma -s/p ERCP with biliary stent placement at [facility] 04/26/2024 ( details below )
-- Septic shock with gram-negative bacteremia
-- Elevated liver test -progression of malignancy versus stent occlusion vs secondary to sepsis
-- Right pleural effusion s/p thoracentesis
-- Multiple hospital admission in the recent past with sepsis -intra-abdominal abscess/cholangitis
CT abd/ pel with oral cont 05/19
IMPRESSION:
1. The lack of intravenous contrast significantly limits evaluation for intra-abdominal abscesses or malignant soft tissue in the setting of known cholangiocarcinoma. Small periportal fluid attenuation focus that likely corresponds to the finding on
the recent prior abdominal ultrasound.
2. Bile duct stent appears well-positioned.
3. Mild abdominal ascites.
4. Patchy airspace opacities in the lingula and left lower lobe suspicious for pneumonia.
5. Moderate right and small left pleural effusions.
plan
overall clinically significant improvement. WBC trending down. LFT remains elevated
CT abd imagining reviewed with . Stent in place and no biliary dilatation noted. NO role for repeat ERCP at this point
continue abx as per ID
trend LFT
medical team/ oncology to discuss GOC / prognosis
Original Note:
Today's Communication / Plan
-
See plan
Assessment / Plan
-
Patient is 74 year old male with past medical history of metastatic gallbladder adenocarcinoma/cholangiocarcinoma, afib/aflutter, cardiomyopathy, htn, hld, DM, J CARLOS, pericarditis who presented to [facility] from [facility] 05/17 for shortness of breath;
GI consulted for abnormal LFTs and his cancer history.
Summary of clinical course:
09/2023 at : cholecystitis managed with cholecystostomy tube and went on to have ERCP, EUS, spyglass dx'd with biliary stricture bx adenocarcinoma --> then received care at [facility]
11/17/23: ex-lap with cholecystectomy, partial tumor resection, lysis of adhesions; (cx Morganella and Citrobacter koseri)
11/2023: admitted for postop abdominal abscess (cx Morganella morgani and Bacteroides fragilis); treated with IR drain into gallbladder fossa collection and 7 days bactrim/augmentin
12/2023: repeat CT seemed improved --> started chemotherapy with Dr. Mejia (med onc, [facility] in [place]); last chemotherapy treatment was 03/03
03/17-03/19: admitted with new perihepatic abscess. Not amenable for IR drainage; treated with cipro/flagyl for 2-3 weeks, plan was for repeat imaging prior to stopping antibiotics
04/07-04/12: admitted for sepsis. CT: 'small volume perihepatic fluid collection extending into anterior abdominal wall, not significantly changed since 03/10/24 and may be related to resolving postop collection. Hypodense lesion in the right hepatic
lobe at the site of presumed bile leak when compared to 12/04/23 and may be resolving biloma. Well positioned CBD stent however with mild intrahepatic biliary duct dilation similar in appearance to 03/10/24.' IR aspirated 6mL gelatinous pus, cultures
did not grow any organisms; discharged on 2 weeks cipro/flagyl with plan to repeat CTAP 04/23
04/24-05/05: admitted for acute cholangitis and sepsis; hospitalization was also notable for acute renal failure, GI bleeding while on anticoagulation for afib/aflutter, HFrEF (35%), gastric outlet obstruction, acute hypoxic respiratory failure. He
underwent ERCP with plastic stent replacement on 04/26 (findings/interventions: D2 stricture making passage of scope and access to papilla difficult, evidence of prior sphincterotomy, RASD stricture s/p balloon dilation and drainage of purulent
material, removal of previous stent, placement of two [id number] plastic biliary stents were placed one each in the RASD and LHD segment III). Repeat EGD 05/04 to evaluate GIB was unrevealing. At that time he declined further capsule study. He is no
longer on any anticoagulation.
Impression:
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
- S/p partial cholecystectomy. S/p multiple EGD/ERCP with stent placements.
- Last chemotherapy treatment was 03/03/24; this was stopped in the setting of infections, which he has been in and out of the hospital for.
- Next appointment with oncologist at [facility] (Dr. Mejia) was planned for 05/20/24 with the goal of discussing roll of additional chemotherapy. However, he has not been a candidate for systemic treatment given his multiple hospitalizations and
infections over the past few months.
Abnormal LFTs- transaminitis, hyperbilirubinemia
- Most recent stent placement on 04/26 was with a plastic stent. Per discussion with Dr. Mejia, his total bilirubin trended down from 3.5 to 1.1 after stents, his AST/ALT were relatively normal, and his alk phos was consistently elevated [id number].
Awaiting hospital records from [facility] for his most recent admission. Resent record request 05/20.
- Given increase in total bilirubin from 2.5 to 9.7 during this hospitalization, concern for possible stent occlusion secondary to luminal impaction, retained stone, or tumor growth. Also given leukocytosis and thrombocytopenia, also had concern for
fulminant liver failure vs DIC and high risk of bleeding if a procedural intervention was warranted.
- Abdominal CT 05/19: Bile duct stent appear well-positioned extending from the common bile duct into the right and left main hepatic ducts. Surgically absent gallbladder. Mild abdominal ascites. Small periportal fluid attenuation focus measuring 2.5
x 1.5 x 2.0 cm. The unenhanced liver, pancreas, spleen, bilateral adrenal glands, and kidneys are unremarkable. No hydronephrosis.
- Diffuse intrahepatic biliary ductal dilation appears grossly stable from prior CT in December, though not commented on in radiology report. This is reassuring of functional nonoccluded stents. - Will review with Dr. Younger, Dr. Marie
Sepsis, requiring pressors
- Pressor requirements improving, now on levophed only (vasopressin discontinued)
- Initial blood cultures 05/17- positive for Klebsiella pneumoniae
- Repeat blood cultures 05/18- preliminary enterococcus species; final report pending
- ID following- on zosyn since 05/17
Anemia
- Hgb 8.4 on admission; previously 9.0 in November
- S/p 1u pRBC transfusion 05/18, followed by appropriate rise in hgb
Recent GI bleed, unknown origin
- No longer on anticoagulation
- No obvious source of GI bleed or active ongoing bleed
?Intraabdominal abscess vs new fluid collection/cyst
- Abdominal US 05/17 showed slightly irregular fluid collection adjacent to sugey hepatis, 2.0x2.7x1.9 cm
- Abdominal CT 05/19: Small periportal fluid attenuation focus measuring 2.5 x 1.5 x 2.0 cm.
Thrombocytopenia
Leukocytosis
Gastric outlet obstruction
Bilateral pleural effusions
- Right: s/p IR thoracentesis of 1050mL 05/17; culture NG at 48h, cytology pending
- Left: s/p IR thoracentesis of 1000mL 05/19; culture and cytology pending
Afib/aflutter- not on anticoagulation
HFpEF- echo 05/17 EF 60-65%
Acute hypoxic respiratory failure
GERD
HTN
Dyslipidemia
Depression
Renal insufficiency
Recommendations:
- Consider inpatient oncology consultation to facilitate discussion of prognosis of his cancer and goals of care.
- Awaiting records from [facility] from most recent hospitalization to compare imaging and labs. Resent record request 05/20/24.
- Given clinical improvement and CT without obvious biliary obstruction, recommend continuing current management per primary team. Will reconsider ERCP/biliary stent exchange if appropriate pending clinical course.
- Can consider additional imaging in future. Will hold off on IV contrast given SUDHIR.
- Continue trending LFTs.
- Further recommendations to come.
Subjective
Subjective
Date of Service: May 20, 2024
Continues to feel slightly better. No complaints other than back discomfort where the thoracocentesis was performed. He denies abdominal pain, bloating, nausea, vomiting, dysphagia, diarrhea, constipation. Tolerating clear liquid diet, and now
requesting diet advancement.
Objective
Data Reviewed
Laboratory Data:
Laboratory Results
05/20/24 04:45
05/20/24 04:45
Laboratory Results
PT 15.7 Sec (11.4-14.6) H 05/17/24 05:53
INR 1.26 05/17/24 05:53
APTT 30.5 Sec (23.4-35.0) 05/17/24 05:53
Magnesium 1.8 mg/dl (1.6-2.3) 05/20/24 04:45
Total Bilirubin 12.0 mg/dl (0.2-1.3) H 05/20/24 04:45
AST 472 U/L (17-59) H 05/20/24 04:45
ALT 256 U/L (0-50) H 05/20/24 04:45
Alkaline Phosphatase 2043 U/L (38-126) H 05/20/24 04:45
Vital Signs and I&O:
Vital Signs
Temp Pulse Resp BP Pulse Ox
97.1 F 60 24 97/40 99
05/20/24 08:00 05/20/24 09:03 05/20/24 09:03 05/20/24 09:03 05/20/24 09:03
I&O
05/19/24 05/20/24 05/21/24
06:59 06:59 06:59
Intake Total 1841.3 / 1850.0 2129.7 / 2141.0 27.6 / 27.6
Output Total 800 / 800 1400 / 1400 150 / 150
Balance 1041.3 / 1050.0 729.7 / 741.0 -122.4 / -122.4
Physical Exam
Physical Exam
General: Resting comfortably in bed, no acute distress. Jaundice
Heart: Regular rate and rhythm.
Lungs: Nonlabored breathing. Nasal canula in place.
GI: Normal bowel sounds present. Abdomen soft, nontender, nondistended. No rebound, rigidity, guarding.
[2024-05-20] MEDS: KCL ELIXIR 20 MEQ TUBE (10:13)
[2024-05-20] MEDS: LEVOPHED 258 MG IV (11:29)
--- NOTE | 2024-05-20 11:58 | PTCARENOTE ---
Assessment unchanged. Continuing to wean Levophed. O2 to 1L NC. at bedside.
[2024-05-20] MEDS: ProAmatine 5 MG PO ×2 (12:25→17:34)
[2024-05-20] MEDS: NOVOLOG FLEXPEN-LOW RESISTANCE 1 UNITS SC ×2 (12:25→16:26)
[2024-05-20 12:29] LABS: Glucose - Point of Care 189 mg/dl (70-99)
[2024-05-20] MEDS: LANTUS 0.1 UNITS SC (13:00)
[2024-05-20] MEDS: ULTRAM 50 MG PO (13:11)
--- NOTE | 2024-05-20 13:43 | W.PN.ID1 ---
Date of Service
Date of Service: May 20, 2024
Today's Communication
Continue zosyn for today.
Assessment / Plan
Leukocytosis
- Improved
Bacteremia
-Admission blood cultures with Klebsiella pneumoniae.
-Blood cultures on 05/18 positive for Enterococcus
Periportal fluid collection
- not clear if abscess or sterile.
Nausea/vomiting
- improved
Bilateral pleural effusions
- s/p thoracentesis
Cholangiocarcinoma
Clinical sepsis
- blood cultures with Klebsiella and Enterococci; suspect GI source.
Transaminitis
Hyperbilirubinemia
A-fib
GERD
HTN
Dyslipidemia
NIDDM
Depression
Sleep apnea (on CPAP)
Hx pericarditis
Renal insufficiency
Ascites
Anemia
Recommendations:
Continue with Zosyn.
Aerobic blood culture bottle from 05/18 with Enterococcus. Blood cultures from 05/17 with Klebsiella pneumoniae
Monitor white count and temperature curve.
Pressors being weaned.
Discharge note from [facility] reviewed. Patient found to have abdominal collections during the admission in February, and was discharged on Cipro/metronidazole.
Follow pending cultures. Repeat blood cultures pending.
Patient remains critically ill on pressors and intensive care unit.
����������������������������������������������������������
Chief Complaint
-: Clinical Sepsis and Pneumonia
Subjective / Review of Systems
Review of Systems: No Fever and No Chills
Vital Signs / Physical Exam
Vital Signs
Vital Signs
Temp Pulse Resp BP Pulse Ox
96.0 F L 60 27 90/51 93
05/20/24 12:23 05/20/24 13:00 05/20/24 13:00 05/20/24 13:00 05/20/24 13:00
Physical Exam
Constitutional: Comfortable, Chronically Ill and Non-toxic
Eyes: No Conjunctival Hemorrhage and Other (Mild scleral icterus)
Cardiovascular: S1/S2; Negative S3/S4
Pulmonary: Non Labored
Gastrointestinal: Soft, Non Tender, Non Distended and No Guarding
Skin: Warm, Dry and Jaundice; Negative Rash
Neurological: Awake and Alert
Psychological: Calm
Objective Data
Lab Data
Lab Results
05/20/24 04:45
05/20/24 04:45
PT 15.7 Sec (11.4-14.6) H 05/17/24 05:53
INR 1.26 05/17/24 05:53
APTT 30.5 Sec (23.4-35.0) 05/17/24 05:53
Estimated Creat Clear 41 ml/min 05/20/24 04:45
Lactic Acid Cancelled 05/17/24 17:40
Total Bilirubin 12.0 mg/dl (0.2-1.3) H 05/20/24 04:45
AST 472 U/L (17-59) H 05/20/24 04:45
ALT 256 U/L (0-50) H 05/20/24 04:45
Alkaline Phosphatase 2043 U/L (38-126) H 05/20/24 04:45
Most recent labs reviewed.
Micro Results:
05/17/24 13:59 Body Fluid Culture - Final
Pleural Fluid No Growth After 72 Hours
Gram Stain - Final
05/20/24 10:23 Blood Culture - Pending
Blood/Venous
05/19/24 11:55 Body Fluid Culture - Preliminary
Pleural Fluid No Growth After 18-24 Hours
Gram Stain - Preliminary
05/18/24 08:25 Blood Culture - Preliminary
Blood/Venous Enterococcus species
Gram Stain - Preliminary
05/17/24 01:21 Blood Culture - Final
Blood/Venous Klebsiella pneumoniae
Gram Stain - Final
05/17/24 06:14 MRSA Screen - Final
Nose No Methicillin Resistant Staphylococcus aureus isolated.
Imaging:
05/19/2024 CT abdomen/pelvis without contrast lack of IV contrast significantly limits examination. A periportal fluid attenuation focus likely corresponds to the finding on the recent prior abdominal ultrasound. Bile duct stents appear
well-positioned. Mild abdominal ascites. Patchy airspace opacities in the lingula and left lower lobe
CXR (05/17/2024): Official report pending. Film personally viewed and suggest a left upper lobe and right middle lobe infiltrate.
05/17/2024 CT chest: Official report pending. Bilateral pleural effusions noted. Significant atelectasis noted secondary to the effusions. Pneumonia suspected.
--- NOTE | 2024-05-20 16:06 | PTCARENOTE ---
Assessment unchanged. Pt remains OOB in chair. S/O buttocks/coccyx discomfort. PRN med given, pt repositioned with 2 chair cushions.
[2024-05-20] MEDS: NOVOLOG FLEXPEN 3 UNITS SC (16:26)
[2024-05-20 16:41] LABS: Glucose - Point of Care 164 mg/dl (70-99)
[2024-05-20 21:56] LABS: Glucose - Point of Care 93 mg/dl (70-99)
[2024-05-21] VITALS (50 sets, daily range): BP systolic 100–149; BP diastolic 41–91; BMI 26.5
[2024-05-21] MEDS: ZOSYN 50 IV ×4 (03:50→22:02)
[2024-05-21 04:28] LABS: % Basophils 0.3 % (0-2); % Eosinophils 1.2 % (0-6); % Immature Granulocytes 5.5 % (0-0.5); % Lymphocytes 4.7 % (20.5-51.1); % Monocytes 7.8 % (1.7-9.3); % Neutrophils 80.5 % (42.2-75.2); Absolute Eosinophils 0.2 10^3/uL (0-0.7); Absolute Immature Granulocytes 0.8 10^3/uL (0-0.05); Absolute Lymphocytes 0.6 10^3/uL (1.2-3.4); Absolute Monocytes 1.1 10^3/uL (0.1-0.6); Hematocrit 23.2 % (39.0-52.0); Mean Corp Hgb Conc. 34.5 g/dL (33.0-37.0); Mean Corpuscular Hgb 31.1 pg (27.0-31.0); Mean Corpuscular Volume 90.3 fL (80.0-94.0); Nucleated Red Blood Cells % 0 % (-); Platelet Count 48 10^3/uL (130-400); Red Blood Cell Count 2.57 10^6/uL (4.70-6.10); Red Cell Dist. Width 18.6 % (11.5-14.5); White Blood Cell Count 13.7 10^3/uL (4.8-10.8)
[2024-05-21 04:29] LABS: ALT (SGPT) 310 U/L (0-50); AST (SGOT) 651 U/L (17-59); Albumin 2.2 g/dl (3.5-5.0); Blood Urea Nitrogen 36 mg/dl (9-20); Calcium 7.8 mg/dl (8.4-10.2); Carbon Dioxide 28 mmol/L (22-30); Chloride 101 mmol/L (98-107); Estimated Creatinine Clearance 43 ml/min; Glucose 66 mg/dl (70-99); Magnesium 1.9 mg/dl (1.6-2.3); Potassium 3.9 mmol/L (3.5-5.1); Sodium 135 mmol/L (135-145); Total Bilirubin 14.1 mg/dl (0.2-1.3); Total Protein 4.8 g/dl (6.3-8.2); eGFR 47.95
--- NOTE | 2024-05-21 04:39 | PTCARENOTE ---
Pt received at 19:00, initial assessment as documented. Ox3, generalized weakness. SR w/ BBB. Levophed gtt continues, titrated to maintain MAP >65. 2L NC, respirations shallow, breath sounds diminished. +bowel sounds, no BM. Urine orange, voids in
urinal. Safe environment maintained, call reilly within reach, pt repositioned.
[2024-05-21 04:42] LABS: Alkaline Phosphatase > 2400 U/L (38-126)
--- NOTE | 2024-05-21 07:24 | W.PN.INTV ---
Today's Communication / Plan
Recommendations
Wean FiO2
Monitor for pleural fluid reaccumulation
Follow blood cultures
Continue antibiotics
Follow LFTs
Oncological opinion in regards to prognosis and tolerability of treatment-poor performance status at this point
Palliative care assessment
Assessment
-
74-year-old male with history of atrial fibrillation, hypertension, sleep apnea, restrictive lung disease and diabetes with a recent diagnosis of cholangiocarcinoma with stents status post chemo recently complicated by infection and returns with
pulse ox at home in the 50s, emesis and suspected septic shock-welfare aide consulted for sepsis/critical care management 05/17/2024.
Sepsis with shock unresponsive to fluids requiring pressors
Leukocytosis-WBC 16.1
CHF with reduced EF
Pneumonia
Bilateral right greater than left pleural effusion-malignant
Status post right thoracentesis 05/17/24--1 L clear miya fluid, exudate, cultures negative, cytology positive for metastatic adenocarcinoma
Status post left thoracentesis 05/19/24--1000 mL clear miya fluid
Anemia-hemoglobin 8.4-normocytic
Thrombocytopenia-platelet 104
Mild hyperglycemia
Elevated LFTs
Hypoalbuminemia
Conditions present prior to admission:
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
Atrial fibrillation.
Hypertension.
Hyperlipidemia.
Diabetes.
Depression.
J CARLOS on CPAP.
Restrictive lung disease.
Decreased diffusing capacity.
Postnasal drip.
Anemia.
Septoplasty. Biliary stenting x 2.
Plan
Remains critically ill on pressors though requirements have decreased-still on norepinephrine 5
Supplemental oxygen weaned to nasal cannula
BiPAP if needed
Intubate and mechanically ventilate if necessary-reviewed CODE STATUS with him-wants to be a full code including CPR, shocking and intubation
Aspiration precautions
Nebulizers if needed
CT chest 05/17/2024-no evidence for pulm embolism, moderate bilateral pleural effusions with compressive atelectasis
Chest x-ray 05/18/2024-findings of CHF, small left pleural effusion
Chest x-ray 05/15/2024-improved aeration left lung following thoracentesis, trace left pleural effusion and stable small right pleural effusion
Bilateral pleural effusions
Thoracentesis-right side 05/17/24--1.05 L clear miya fluid, WBC 114, glucose 83, total protein 3.1, LDH 242, pH 7.5, cultures negative, cytology-positive for malignant cells consistent with adenocarcinoma and patient with known cholangiocarcinoma
Thoracentesis-left side 05/19/24--1000 mL clear miya fluid, [id number]
Monitor for fluid reaccumulation-CT abdomen 05/19/2024 with probable right pleural fluid partial reaccumulation
Likely will have pleural fluid reaccumulation with metastatic disease to the pleura
Discussed probable need for repetitive thoracenteses and even possible Pleurx catheter
Cultures reviewed
Blood culture positive for Klebsiella
Blood culture 05/18/2024 positive for Enterococcus
Repeat blood cultures 05/20/[id number]-ihhrskdv-ykovpjwelmlgee pending
Continue antibiotics-currently on Zosyn
Infectious disease following-correspondence reviewed
Monitor leukocytosis-improving
Decrease IV fluids
Continue pressors-norepinephrine wean-vasopressin discontinued
Cardiology [id number] with Dr. Lema
Gentle diuresis if blood pressure tolerates
Note: Echocardiogram 05/17/2024-EF 60-65%, PA systolic estimated 70-EF improved from 35%
Troponin trended
Follow renal function, electrolytes, intake/output, lower extremity edema and weight
Replace electrolytes as needed
Status post right thoracentesis-malignant
Status post left thoracentesis-cytology pending
Monitor blood sugar
Insulin supplementation as needed
Monitor hemoglobin-yesterday 6.8-received 1 unit 05/18/2024-now 8.0
Transfuse as needed
Heme test stools
GI evaluation ongoing-correspondence reviewed
Stent stable-they believe rising LFTs due to smaller on stentable duct obstructions
CT abdomen and pelvis 05/15/2024-lack of IV contrast limits intra-abdominal abscess or malignant soft tissue evaluation, small periportal fluid attenuation, bile duct stent appears well-positioned, mild abdominal ascites, patchy airspace
opacifications lingula and left lower lobe suspicious for pneumonia, moderate right and small left pleural effusion
PPI
Monitor LFTs-still climbing-quite icteric-total bilirubin now 14.1
Consider oncological opinion in regards to prognosis
Performance status unfortunately too poor to initiate chemotherapy that may be his only hope for tumor regression/ductal obstruction regression and improvement in LFTs
Patient had remained hopeful he could reinitiate chemotherapy-GI team has been in communication with -his oncologist
DVT prophylaxis-mechanical
Dr. Fofana updates at the bedside daily
DVT prophylaxis-mechanical
GI prophylaxis-on pantoprazole
Nutrition-advance diet per GI
Early mobilization/bedside range of motion
If able to be weaned off pressors then could be transferred out of ICU-pulmonary will continue to follow
Reviewed extensively with who joined multidisciplinary rounds-tearful and realistic, agreement with oncological evaluation and palliative care assessment
Reviewed [facility] records from discharge 03/15/[id number]-qwjyn-rmadcmrfe abscesses, seen by infectious disease and placed on long-term antibiotics-Cipro and metronidazole, follows Dr. Mejia at [place] oncology treated with
gemcitabine, cisplatin, durvalumab-last dose 03/03/2024
Outpatient oncology [id number]-[id number] to resume chemotherapy once infections under control
Patient was last seen pulmonary/sleep disorders office 04/22/[address] Fofana and has a follow-up appointment 05/27/2024 at 1015 with Kae Garcia NP
Critical care statement: A total of 40 minutes of critical care time was provided for this patient today. This includes management of unstable vital signs, evaluation of the patient at bedside, reviewing the patient's pertinent medical records
including radiographs, pressor management, microbiology, laboratory evaluations, and discussion with primary team, consultants, pharmacy, nutrition, physical therapy, case management, charge nurse, critical care nursing, and respiratory therapy.
Diagnostic data:
Chest x-ray 05/17/2024-pulmonary edema with small bilateral pleural effusions
CT chest with PE protocol 10/24/20--no Pulmonary Embolism, no significant other abnormalities,Patient notified.
CT chest abdomen and pelvis 12/04/2023-multiple fluid collections in perihepatic region including collection within the gallbladder fossa, no evidence for metastatic disease in the chest abdomen or pelvis, mild prostate enlargement
Lower extremity ultrasound 02/09/2024-no evidence for lower extremity deep venous thrombosis
Stress echocardiogram 06/12/20--no EKG or echocardiographic evidence of myocardial ischemia, lightheadedness and shortness of breath with exercise which resolved in recovery, overall low to intermediate risk study.
Spirometry 09/20/20--FEV1 2.3 L-77%, FVC 2.92 L-71%, no significant BD response. Mild restriction.
PFT 11/10/20--FEV1 2.7 L-91%, FVC 3.3, 1 L-79%, TLC 68%, RV 45%, DLCO 83%. Mild restriction and mild reduction in diffusing capacity.
Spirometry 09/26/21-FEV1 2.29 L, 88%, FVC 2.78 L-80%, no significant BD response. Mild restriction.
PFT 11/14/22-FEV1 2.25 L-78%, FVC 2.5 L 69% , TLC 63%, RV 40%, DLCO 76%. Mild to moderate restriction and mild reduction in diffusing capacity
Spirometry 07/16/23-FEV1 2.2-91%, FVC 2.7-79%,No significant BD response. Mild restriction.
Originally diagnosed around 2006 PSG-AHI-20, desaturation hillary 86%, CPAP 9 cm
PSG 09/16/18--AHI-16.7, desaturation hillary 84%, 0.7% time <90% saturation.
Subjective Dataa
Subjective Data
Date of Service:
Date of Service: May 21, 2024
Chief Complaint: Order Management Specialist Follow Up and Pulmonary Follow Up
Subjective:
No complaints of shortness of breath, chest pain, abdominal pain, weak,
Review of Systems
General: Other (Per HPI)
Objective Data
Data Reviewed
Vital Signs / I&O / Oxygen:
Vital Signs
Temp Pulse Resp BP Pulse Ox
97.5 F 65 15 128/53 96
05/21/24 07:19 05/21/24 07:00 05/21/24 07:00 05/21/24 07:00 05/21/24 07:00
Intake and Output
05/20/24 05/21/24 05/22/24
06:59 06:59 06:59
Intake Total 2129.7 / 2141.0 721.5 / 721.5
Output Total 1400 / 1400 670 / 670
Balance 729.7 / 741.0 51.5 / 51.5
SaO2 96
Nasal Cannula flow liters per 1
minute
Physical Exam
General: Respiratory Distress (n) and Comfortable
HEENT: Normocephalic and Anicteric
Cardiovascular: Regular Rhythm, Murmur and Peripheral Edema
Respiratory: Clear (Diminished breath sounds at both bases and rare crackles), Wheeze (n), Crackles (Rare crackles), Rhonchi (n), Non-Labored Respirations, Accessory Resp Muscle Use (n) and Stridor (n)
GI: Soft, Non Distended and Non Tender
Neurology: Awake, Alert and No Motor Deficits
Skin: Warm, Good Color, Cyanosis (n), Jaundice (n), Rash and Other (Icteric)
Labs/Micro/Reports
Lab Data
05/21/24 03:46
05/21/24 03:46
Microbiology
05/17/24 13:59 Pleural Fluid Body Fluid Culture - Final
No Growth After 72 Hours
05/17/24 13:59 Pleural Fluid Gram Stain - Final
05/19/24 11:55 Pleural Fluid Body Fluid Culture - Preliminary
No Growth After 18-24 Hours
05/19/24 11:55 Pleural Fluid Gram Stain - Preliminary
05/18/24 08:25 Blood/Venous Blood Culture - Preliminary
Enterococcus species
05/18/24 08:25 Blood/Venous Gram Stain - Preliminary
05/17/24 01:21 Blood/Venous Blood Culture - Final
Klebsiella pneumoniae
05/17/24 01:21 Blood/Venous Gram Stain - Final
05/17/24 06:14 Nose MRSA Screen - Final
No Methicillin Resistant Staphylococcus aureus isolated.
[2024-05-21] MEDS: NOVOLOG FLEXPEN-LOW RESISTANCE SC ×2 (07:34→12:05)
[2024-05-21 07:42] LABS: Glucose - Point of Care 72 mg/dl (70-99)
[2024-05-21] MEDS: NOVOLOG FLEXPEN SC (07:46)
[2024-05-21] MEDS: ProAmatine 5 MG PO ×3 (08:25→16:47)
[2024-05-21] MEDS: CYMBALTA DELAYED RELEASE 20 MG PO ×2 (08:25→20:47)
[2024-05-21] MEDS: NSS (PRESERVATIVE FREE) 10 ML IV (08:26)
[2024-05-21] MEDS: PACERONE 200 MG PO (08:26)
[2024-05-21] MEDS: PROTONIX IV 40 MG IV (08:26)
[2024-05-21] MEDS: DESENEX/MITRAZOL/ZEASORB 1 APPLIC TOPICAL ×2 (08:27→20:49)
[2024-05-21] MEDS: LANTUS 0.1 UNITS SC (08:45)
--- NOTE | 2024-05-21 08:46 | W.PN.GI.CBS2 ---
Today's Communication / Plan
-
Advance to regular diet, consult palliative care. No role for ERCP at this time
Assessment / Plan
-
Patient is 74 year old male with past medical history of metastatic gallbladder adenocarcinoma, afib/aflutter, cardiomyopathy, htn, hld, DM, J CARLOS, pericarditis who presented to [place] ED from [facility] 05/17 for shortness of breath; GI consulted for
abnormal LFTs and his cancer history.
Summary of clinical course:
09/2023 at : cholecystitis managed with cholecystostomy tube and went on to have ERCP, EUS, spyglass dx'd with biliary stricture bx adenocarcinoma --> then received care at [place]
11/17/23: ex-lap with cholecystectomy, partial tumor resection, lysis of adhesions; (cx Morganella and Citrobacter koseri). See below.
11/2023: admitted for postop abdominal abscess (cx Morganella morgani and Bacteroides fragilis); treated with IR drain into gallbladder fossa collection and 7 days bactrim/augmentin
12/2023: repeat CT seemed improved --> started chemotherapy with Dr. Mejia (med onc, [facility] in [place]); last chemotherapy treatment was 03/03
03/17-03/19: admitted with new perihepatic abscess. Not amenable for IR drainage; treated with cipro/flagyl for 2-3 weeks, plan was for repeat imaging prior to stopping antibiotics
04/07-04/12: admitted for sepsis. CT: 'small volume perihepatic fluid collection extending into anterior abdominal wall, not significantly changed since 03/10/24 and may be related to resolving postop collection. Hypodense lesion in the right hepatic
lobe at the site of presumed bile leak when compared to 12/04/23 and may be resolving biloma. Well positioned CBD stent however with mild intrahepatic biliary duct dilation similar in appearance to 03/10/24.' IR aspirated 6mL gelatinous pus, cultures
did not grow any organisms; discharged on 2 weeks cipro/flagyl with plan to repeat CTAP 04/23
04/24-05/05: admitted for acute cholangitis and sepsis; hospitalization was also notable for acute renal failure, GI bleeding while on anticoagulation for afib/aflutter, HFrEF (35%), gastric outlet obstruction, acute hypoxic respiratory failure. He
underwent ERCP with plastic stent replacement on 04/26 (findings/interventions: D2 stricture making passage of scope and access to papilla difficult, evidence of prior sphincterotomy, RASD stricture s/p balloon dilation and drainage of purulent
material, removal of previous stent, placement of two [id number] plastic biliary stents were placed one each in the RASD and LHD segment III). Repeat EGD 05/04 to evaluate GIB was unrevealing. At that time he declined further capsule study. He is no
longer on any anticoagulation.
From the operative report 11/17/23: 'There was no evidence of malignant ascites, carcinomatosis, or omental implants. The liver was carefully assessed, and it revealed no evidence of metastatic disease. The gallbladder was as stated above, quite
large, firm, inflamed, and it contained both the palpable tumor and palpable gallstones. In addition, there was palpable abnormality and lymphadenopathy in the hepatoduodenal ligament, rock-hard lymph nodes in the celiac area, as well as rock-hard
lymph node in the periaortic area. This was clearly not a tumor that was going to be resected for cure.'
From the pathology report: 'Invasive adenocarcinoma, biliary type, poorly differentiated invading into subserosal tissue. The carcinoma infiltrates the entire thickness of the gallbladder wall and approached the attached liver parenchyma; tumor
nodules are within 0.1 mm of the attached liver. Extensive lymphovascular and perineural invasion are seen. All the microscopic sections show adenocarcinoma and the size of the tumor is estimated to be 11c cm. In addition, extensive in-situ
carcinoma with papillary differentiation and necrosis is present.'
Impression:
Metastatic poorly differentiated gallbladder adenocarcinoma
- S/p partial cholecystectomy. S/p multiple EGD/ERCP with stent placements.
- Last chemotherapy treatment was 03/03/24; this was stopped in the setting of infections, which he has been in and out of the hospital for.
- Next appointment with oncologist at [place] (Dr. Mejia) was planned for 05/20/24 with the goal of discussing roll of additional chemotherapy. However, he has not been a candidate for systemic treatment given his multiple hospitalizations and
infections over the past few months.
- At his surgery 11/17/23, the tumor was not fully resectable and suspected presence in multiple lymph nodes. The pathology report noted tumor nodules within 0.1mm of liver, and extensive lymphovascular and perineural invasion.
Abnormal LFTs- transaminitis, hyperbilirubinemia
- Most recent stent placement on 04/26 was with a plastic stent. Per discussion with Dr. Mejia, his total bilirubin trended down from 3.5 to 1.1 after stents, his AST/ALT were relatively normal, and his alk phos was consistently elevated [id number].
Lab work from that admission was requested.
- Given increase in total bilirubin from 2.5 to 9.7 during this hospitalization, concern for possible stent occlusion secondary to luminal impaction, retained stone, or tumor growth. Also given leukocytosis and thrombocytopenia, also had concern for
fulminant liver failure vs DIC and high risk of bleeding if a procedural intervention was warranted.
- Abdominal CT 05/19: Bile duct stent appear well-positioned extending from the common bile duct into the right and left main hepatic ducts. Surgically absent gallbladder. Mild abdominal ascites. Small periportal fluid attenuation focus measuring 2.5
x 1.5 x 2.0 cm. The unenhanced liver, pancreas, spleen, bilateral adrenal glands, and kidneys are unremarkable. No hydronephrosis.
- Diffuse intrahepatic biliary ductal dilation appears grossly stable from prior CT in December, though not commented on in radiology report. This is reassuring of functional nonoccluded stents. Reviewed with Dr. Younger, Dr. Marie.
- Suspect abnormal LFTs are in large part due to growth/extension of his cancer, see reccommendations below.
Bilateral pleural effusions
- Right: s/p IR thoracentesis of 1050mL 05/17; culture NG at 48h, cytology positive for malignant cells (adenocarcinoma)
- Left: s/p IR thoracentesis of 1000mL 05/19; culture and cytology pending
Sepsis, requiring pressors
- Remains on levophed (vasopressin discontinued)
- Initial blood cultures 05/17- positive for Klebsiella pneumoniae
- Repeat blood cultures 05/18- preliminary enterococcus species; final report pending
- Repeat blood cultures 05/20- aerobic gram positive cocci; culture pending
- ID following- on zosyn since 05/17
Anemia
- Hgb 8.4 on admission; previously 9.0 in November
- S/p 1u pRBC transfusion 05/18, followed by appropriate rise in hgb
Recent GI bleed, unknown origin
- No longer on anticoagulation
- No obvious source of GI bleed or active ongoing bleed
?Intraabdominal abscess vs new fluid collection/cyst
- Abdominal US 05/17 showed slightly irregular fluid collection adjacent to sugey hepatis, 2.0x2.7x1.9 cm
- Abdominal CT 05/19: Small periportal fluid attenuation focus measuring 2.5 x 1.5 x 2.0 cm.
Thrombocytopenia
Leukocytosis
Gastric outlet obstruction
Afib/aflutter- not on anticoagulation
HFpEF- echo 05/17 EF 60-65%
Acute hypoxic respiratory failure
GERD
HTN
Dyslipidemia
Depression
Renal insufficiency
Recommendations:
- We suspect that his declining performance status is in large part due to growth/extension of his tumor, especially given new evidence of malignancy in pleural fluid. Additionally given the extremely close proximity (0.1mm) of tumor nodules to the
liver back in October and that the tumor could only be partially resected, we suspect abnormal LFTs and hyperbilirubinemia are in large part due to growth/extension of tumor rather than an occluded stent. His ongoing sepsis may also be contributing.
Since we suspect the stents (placed 04/26) are still patent, there is no role for ERCP or stent replacement at this time. Additionally, he is physically comfortable with no abdominal pain and he remains on pressor support for his sepsis, so would
recommend continuing his current treatment per his primary team, geology technician, ID, cardiology. Should his clinical course change, we can reevaluate if an ERCP is warranted. I did discuss this with the patient and his at bedside, and discussed
palliative care. At the time of my conversation they were adamant about continuing treatment, and I assured them that active treatment and palliative care can often do coexist. They are open to palliative care- placed consult and reached out to "Nitza"Antoine. They are also requesting an oncology consultation to review treatment options which is reasonable, though they are aware that it is not safe to initiate chemotherapy with active infections.
- Continue medical care per primary, geology technician, ID, cardiology.
- Consult placed for palliative care, and discussed this with patient and his .
- Can consult oncology as well.
- Not a candidate for ERCP/stent replacement at this time. Can reassess if clinical picture changes.
- Diet advanced to regular as he has not been having any dysphagia and there are no plans to do procedures. He was on a regular texture diet at home prior to hospitalization with no concerns.
No further recommendations. GI will sign off. Please reach out with any new questions or concerns.
Subjective
Subjective
Date of Service: May 21, 2024
Feeling okay, tired. No complaints. He denies abdominal pain, nausea, vomiting, dysphagia, diarrhea, constipation.
Objective
Data Reviewed
Laboratory Data:
Laboratory Results
05/21/24 03:46
05/21/24 03:46
Laboratory Results
PT 15.7 Sec (11.4-14.6) H 05/17/24 05:53
INR 1.26 05/17/24 05:53
APTT 30.5 Sec (23.4-35.0) 05/17/24 05:53
Magnesium 1.9 mg/dl (1.6-2.3) 05/21/24 03:46
Total Bilirubin 14.1 mg/dl (0.2-1.3) H 05/21/24 03:46
AST 651 U/L (17-59) H* 05/21/24 03:46
ALT 310 U/L (0-50) H 05/21/24 03:46
Alkaline Phosphatase > 2400 U/L (38-126) H 05/21/24 03:46
Vital Signs and I&O:
Vital Signs
Temp Pulse Resp BP Pulse Ox
97.5 F 65 15 129/53 96
05/21/24 07:19 05/21/24 07:00 05/21/24 07:00 05/21/24 08:26 05/21/24 07:00
I&O
05/20/24 05/21/24 05/22/24
06:59 06:59 06:59
Intake Total 2129.7 / 2141.0 721.5 / 721.5
Output Total 1400 / 1400 670 / 670
Balance 729.7 / 741.0 51.5 / 51.5
Physical Exam
Physical Exam
General: Resting comfortably in bed, no acute distress.
Heart: Regular rate and rhythm.
Lungs: Nonlabored breathing.
GI: Normal bowel sounds present. Abdomen soft, nontender, nondistended.
--- NOTE | 2024-05-21 09:18 | W.PN.CARDCBS ---
Today's Communication / Plan
-
Wean levophed as tolerated
Remains in SR with low dose amio; LFTs rising
Palliative care consult pending per GI/nursing; Agree with [facility] discussion
Hbg stable at 8; Plt 48
Impression / Plan
-
PCP: Dr. Gordon
Wedding Florist: Dr. Gonsalez
Oncologist: Dr. Sebastian Mejia ([phone])
Impression:
Presented with SOB, N/V
Acute hypoxic respiratory failure
Acute HFrEF
Sepsis with shock
Cardiomyopathy, EF 35%
Paroxysmal atrial flutter
Not anticoagulated due to GIB
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
s/p biliary stenting and partial cholecystectomy
Hypertension
Hyperlipidemia
DM2
J CARLOS on CPAP
h/o pericarditis
Echo 05/03/2024 @ [facility]: EF 35%, mild to moderate TR, moderate pulmonary hypertension, estimated PAP 54 mmHg
Echo 05/17/2024: EF 60%, Flattened RV, mild-mod TR, PA pressure 70
Plan:
-Still remains on Levophed, unable to wean per nursing.
-Continue antibiotics.
-From a respiratory standpoint, doing better status post thoracentesis and Lasix x 1
-Echo with continued pulm hypertension but CT scan with no pulmonary embolism. Hold diuresis for now while on Levophed
-Hemoglobin stable at 8. Remains in sinus. Cont to hold off on anticoagulation due to bleeding (thrombocytopenia).
-Continue amiodarone for now; LFTs uptrending, unclear at this time if related given low dose and chronicity of amiodarone; LFT increase may be related to underlying disease process
-May consider ischemic evaluation while inpatient versus outpatient to evaluate for coronary disease given new cardiomyopathy.
-He was on chemotherapy with cisplatin, durvalumab and gemcitabine. Last treatment 02/2024. Chemo discontinued due to recurrent infection.
-Discussed with nursing and GI team regarding patient care, per services, palliative care consult pending
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
mellitus type 2, J CARLOS on CPAP, and prior pericarditis. He presents to ER for evaluation of shortness of breath and vomiting. He has been at [facility] following recent hospitalization at [facility] 04/24/2024 - 05/06/2024 where he was admitted with
cholangitis, new cardiomyopathy, and new atrial flutter. While there, he was started on amiodarone and spontaneously converted to sinus rhythm. He was attempted on anticoagulation, however developed GI bleed with this, requiring 2 units PRBCs.
Anticoagulation was stopped and he has had no recurrent arrhythmia noted since that time. During this hospitalization, he also had echocardiogram which showed new cardiomyopathy with EF 35%. There was consideration for stress testing during this
hospitalization, however it was not performed. He denies any chest pain. He reportedly had recurrent abdominal pain yesterday with episode of vomiting. Then this morning he had shortness of breath and came to ER for evaluation. In ER, he was
found to have concern for sepsis as well as acute heart failure exacerbation. He was given a single dose of IV Lasix in the emergency room, and was also started on IV antibiotics. Cardiology consulted for evaluation. At this time, patient denies
any chest pain or shortness of breath, does admit to some weakness.
Progress Note - Wedding Florist
Subjective
Date of Service: May 21, 2024
Patient seen and examined morning. No acute events overnight. Patient lola on Levophed for blood pressure support. Sinus rhythm on telemetry. No complaints. Notes improvement in shortness of breath but still has some mild dyspnea. No chest
pain, lightheadedness, palpitations, or abdominal pain.
Objective
Labs:
05/21/24 03:46
05/21/24 03:46
Labs
Hgb 8.0 g/dL (13.0-18.0) L 05/21/24 03:46
Hct 23.2 % (39.0-52.0) L 05/21/24 03:46
Plt Count 48 10^3/uL (130-400) L 05/21/24 03:46
PT 15.7 Sec (11.4-14.6) H 05/17/24 05:53
INR 1.26 05/17/24 05:53
APTT 30.5 Sec (23.4-35.0) 05/17/24 05:53
Sodium 135 mmol/L (135-145) 05/21/24 03:46
Potassium 3.9 mmol/L (3.5-5.1) 05/21/24 03:46
BUN 36 mg/dl (9-20) H 05/21/24 03:46
Creatinine 1.5 mg/dL (0.7-1.3) H 05/21/24 03:46
Glucose 66 mg/dl (70-99) L 05/21/24 03:46
Vital Signs and I&O:
Vital Signs
Temp Pulse Resp BP Pulse Ox
97.5 F 65 15 129/53 96
05/21/24 07:19 05/21/24 07:00 05/21/24 07:00 05/21/24 08:26 05/21/24 07:00
Vital Signs
Temp Pulse Resp BP Pulse Ox
97.5 F 65 15 129/53 96
05/21/24 07:19 05/21/24 07:00 05/21/24 07:00 05/21/24 08:26 05/21/24 07:00
Intake & Output
05/19/24 05/20/24 05/21/24 05/22/24
06:59 06:59 06:59 06:59
Intake Total 1841.3 / 1850.0 2129.7 / 2141.0 721.5 / 721.5
Output Total 800 / 800 1400 / 1400 670 / 670
Balance 1041.3 / 1050.0 729.7 / 741.0 51.5 / 51.5
Physical Exam
Physical Exam
GEN: No distress, awake, Ox3, jaundice
HEENT: supple, icteric, mmm
LUNGS: dec BS at bases
CV: Reg, S1/S2, 1/6 syst LSB, no gallop
ABD: soft, BS+, NT/ND
EXT: No edema
NEURO: Gross non-focal
SKIN: No rash
--- NOTE | 2024-05-21 09:56 | W.PN.ID1 ---
Date of Service
Date of Service: May 21, 2024
Today's Communication
Add daptomycin to zosyn pending culture data.
Assessment / Plan
Leukocytosis
- Improved
Bacteremia
-Admission blood cultures with Klebsiella pneumoniae.
-Blood cultures on 05/18 positive for Enterococcus.
-Repeat bcx 05/20 remains positive GPC clusters
Periportal fluid collection
- not clear if abscess or sterile.
Nausea/vomiting
- improved
Bilateral pleural effusions
- s/p thoracentesis
- cx neg
Metastatic Cholangiocarcinoma- hx stent
Clinical sepsis
- blood cultures with Klebsiella and Enterococci; suspect GI source.
Transaminitis
Hyperbilirubinemia
A-fib
GERD
HTN
Dyslipidemia
NIDDM
Depression
Sleep apnea (on CPAP)
Hx pericarditis
Renal insufficiency
Ascites
Anemia
Recommendations:
Continue with Zosyn.
Aerobic blood culture bottle from 05/18 with Enterococcus. Blood cultures from 05/17 with Klebsiella pneumoniae
Repeat bcx remains positive for GPC.
Add Daptomycin IV in case of VRE and/or amp-resistant Enterococcus.
Repeat blood cx.
Check CPK in am
Monitor white count and temperature curve.
Pressors being weaned.
Discharge note from [facility] reviewed. Patient found to have abdominal collections during the admission in February, and was discharged on Cipro/metronidazole.
Patient remains critically ill on pressors and intensive care unit.
����������������������������������������������������������
Chief Complaint
-: Clinical Sepsis and Pneumonia
Subjective / Review of Systems
at bedside. Will speak with oncology and palliative care team. He is comfortable today.
Vital Signs / Physical Exam
Vital Signs
Vital Signs
Temp Pulse Resp BP Pulse Ox
97.5 F 65 15 129/53 96
05/21/24 07:19 05/21/24 07:00 05/21/24 07:00 05/21/24 08:26 05/21/24 07:00
Physical Exam
Constitutional: Comfortable
Pulmonary: Rales and Coarse (bases)
Gastrointestinal: Soft, Non Tender, Non Distended and Normal Bowel Sounds
Genito-Urinary: Negative CVA Tenderness
Skin: Jaundice
Neurological: AO x 3
Objective Data
Lab Data
Lab Results
05/21/24 03:46
05/21/24 03:46
PT 15.7 Sec (11.4-14.6) H 05/17/24 05:53
INR 1.26 05/17/24 05:53
APTT 30.5 Sec (23.4-35.0) 05/17/24 05:53
Estimated Creat Clear 43 ml/min 05/21/24 03:46
Lactic Acid Cancelled 05/17/24 17:40
Total Bilirubin 14.1 mg/dl (0.2-1.3) H 05/21/24 03:46
AST 651 U/L (17-59) H* 05/21/24 03:46
ALT 310 U/L (0-50) H 05/21/24 03:46
Alkaline Phosphatase > 2400 U/L (38-126) H 05/21/24 03:46
Most recent labs reviewed.
Micro Results:
05/18/24 08:25 Blood Culture - Preliminary
Blood/Venous Enterococcus species
Gram Stain - Preliminary
05/20/24 10:23 Blood Culture - Preliminary
Blood/Venous Positive culture in progress
Gram Stain - Preliminary
05/17/24 13:59 Body Fluid Culture - Final
Pleural Fluid No Growth After 72 Hours
Gram Stain - Final
05/19/24 11:55 Body Fluid Culture - Preliminary
Pleural Fluid No Growth After 18-24 Hours
Gram Stain - Preliminary
05/17/24 01:21 Blood Culture - Final
Blood/Venous Klebsiella pneumoniae
Gram Stain - Final
05/17/24 06:14 MRSA Screen - Final
Nose No Methicillin Resistant Staphylococcus aureus isolated.
Imaging:
05/19/2024 CT abdomen/pelvis without contrast lack of IV contrast significantly limits examination. A periportal fluid attenuation focus likely corresponds to the finding on the recent prior abdominal ultrasound. Bile duct stents appear
well-positioned. Mild abdominal ascites. Patchy airspace opacities in the lingula and left lower lobe
CXR (05/17/2024): Official report pending. Film personally viewed and suggest a left upper lobe and right middle lobe infiltrate.
05/17/2024 CT chest: Official report pending. Bilateral pleural effusions noted. Significant atelectasis noted secondary to the effusions. Pneumonia suspected.
--- NOTE | 2024-05-21 10:21 | CM ---
CM following re: discharge planning.
Discussed in rounds, reviewed pt's chart. Per Rounds meeting, pt requires 2L NC of O2, continue supportive care, ID, GI and cardiology following.
PT and OT evaluations noted - SNF level of care recommended. Both pt and his spouse are aware that [facility] offered a bed based on bed availability on the day of discharge and they expressed their agreement and satisfaction with discharge
plan.
D/C plan: [facility] when medically stable.
CM will follow with discharge plan updates as hospitalization progresses
--- NOTE | 2024-05-21 11:25 | CON.ONC ---
Impression
Impression
metastatic gallbladder cancer, patient of Cristi Mejia at [facility]
Recurrent hospitalizations for infections, complications; off chemo since early March
Rising LFTs, without options for GI interventions
Plan
Plan
Met w/ patient and , recommended comfort measures
They expect to meet with palliative care today. Discussed hospice as well. Estimated (to alone) that his life expectancy is in the order of days to a couple weeks.
Discussed CODE status, recommended DNR. They are thinking about it.
Spoke w/ Dr. Mejia, who agrees comfort measures are most appropriate
Will sign off, please call w/ questions
Patient History
History of Present Illness
74 yo w/ h/o metastatic gallbladder cancer, under the care of Dr. Cristi Mejia at [facility], admitted 05/17/24 with SOB/hypoxia, found to have sepsis/bacteremia. He's been in the ICU since admission, requiring pressors, with persistently positive blood
cultures. LFTs are rising, without available interventions per GI. He's been off chemo for some time due to poor performance status, with multiple recent hospital stays at [facility] and [facility]. at bedside, he's agreeable to meeting with palliative
care. He's still FULL CODE, but tells me they've been talking about code status.
Past-Medical/Surgical History
as per the HPI
Patient Medication
�Medication �Instructions �Recorded �Confirmed �Last Taken �Type
pravastatin 40 mg tablet 40 mg PO QPM High Cholesterol 09/27/09 05/17/24 10/12/23 History
duloxetine 20 mg capsule,delayed 20 mg PO BID Depression 09/20/23 05/17/24 11/12/23 History
release (Cymbalta)
therapeutic multivitamin 1 tab PO DAILY Supplement 10/13/23 05/17/24 10/12/23 History
amiodarone 200 mg tablet 200 mg PO DAILY Heart 05/17/24 05/17/24 Unknown History
Disease/Condition
carvedilol 12.5 mg tablet 12.5 mg PO BID Blood Pressure 05/17/24 05/17/24 Unknown History
ferrous sulfate 325 mg (65 mg 325 mg PO DAILY Supplement 05/17/24 05/17/24 Unknown History
iron) tablet
furosemide 40 mg tablet (Lasix) 40 mg PO DAILY Fluid 05/17/24 05/17/24 Unknown History
Retention/Swelling
hydralazine 10 mg tablet 10 mg PO TID Blood Pressure 05/17/24 05/17/24 Unknown History
ipratropium bromide 0.02 % 2.5 ml inhalation Q6H PRN SOB 05/17/24 05/17/24 Unknown History
solution for inhalation
melatonin 3 mg tablet 3 mg PO HS Sleep 05/17/24 05/17/24 Unknown History
pantoprazole 20 mg tablet,delayed 40 mg PO DAILY Gastrointestinal 05/17/24 05/17/24 Unknown History
release Issue
glipizide 2.5 mg tablet, extended 2.5 mg PO DAILY Diabetes 05/19/24 05/19/24 Unknown History
release 24 hr
glipizide 5 mg tablet, extended 5 mg PO QPM Diabetes 05/19/24 05/19/24 Unknown History
release 24 hr
metformin 500 mg tablet,extended 1,000 mg PO BID Diabetes 05/19/24 05/19/24 Unknown History
release 24 hr
pioglitazone 15 mg tablet 15 mg PO DAILY Diabetes 05/19/24 05/19/24 Unknown History
Active Medications
Generic Name Dose Route Start Last Admin
Trade Name Freq PRN Reason Stop Dose Admin
Acetaminophen 650 mg 05/20/24 07:39
Acetaminophen 325 Mg Tablet PO 06/17/24 07:38
Q6HPRN PRN
mild pain
Amiodarone HCl 200 mg 05/17/24 08:00 05/21/24 08:26
Amiodarone 200 Mg Tablet PO 06/14/24 07:59 200 mg
DAILY YEE Administration
Dextrose 12.5 grams 05/17/24 05:40
Dextrose 50% (0.5 Grams/Ml) 50 Ml Syringe IV 06/14/24 05:39
[id number] PRN
hypoglycemia
Protocol
Duloxetine HCl 20 mg 05/17/24 08:00 05/21/24 08:25
Duloxetine Delayed Release 20 Mg Capsule PO 06/14/24 07:59 20 mg
BID YEE Administration
Glucagon 1 mg 05/17/24 05:40
Glucagon 1 Mg Vial IM 06/14/24 05:39
PRN PRN
hypoglycemia
Protocol
Piperacillin Sod/Tazobactam Sod 3.375 gram in 50 mls @ 100 mls/hr 05/17/24 10:00 05/21/24 08:28
Zosyn IV 50 mls
Q6H YEE Administration
Norepinephrine Bitartrate 8 mg 258 mls @ 0 mls/hr 05/18/24 12:00 05/20/24 11:29
/ Sodium Chloride IV 258 mls
PER PROTOCOL YEE Administration
Protocol
Per Protocol
Insulin Glargine 10 units/ 0.1 mls @ 0 mls/hr 05/21/24 09:00 05/21/24 08:45
Device SC 06/18/24 08:59 0.1 mls
DAILY@0900 YEE Administration
As Directed
Daptomycin 500 mg/ Device 10 mls @ 0 mls/hr 05/21/24 12:00
IV
Q24H YEE
As Directed
Insulin Aspart 0 units 05/20/24 11:30 05/21/24 07:34
Insulin Aspart Low Resistance 300 Units/3 Ml Pen.Injctr SC 06/17/24 11:29 Not Given
AC YEE
Protocol
Ipratropium [place] 0.5 mg 05/17/24 14:00
Ipratropium Nebs 0.5 Mg/2.5 Ml Ampul INH
R Q6 PRN
SOB
Protocol
Miconazole Nitrate 0 applic 05/17/24 20:00 05/21/24 08:27
Miconazole Powder Bottle TOPICAL 06/14/24 19:59 1 applic
BID YEE Administration
Midodrine 5 mg 05/20/24 13:00 05/21/24 08:25
Midodrine 5 Mg Tablet PO 06/17/24 12:59 5 mg
TID@0800,1300,1800 YEE Administration
Ondansetron HCl 4 mg 05/17/24 07:55 05/19/24 12:32
Ondansetron 4 Mg/2 Ml Vial IV 06/14/24 07:54 4 mg
Q6HPRN PRN Administration
NAUSEA/VOMITING
Pantoprazole Sodium 40 mg 05/22/24 08:00
Pantoprazole 40 Mg Delayed Release Tablet PO 06/19/24 07:59
DAILY YEE
Sodium Chloride 0 flush 05/17/24 05:00
Sodium Chloride 0.9% (Flush) Syringe IV 06/14/24 04:59
PER PROTOCOL YEE
Tramadol HCl 50 mg 05/18/24 12:05 05/20/24 13:11
Tramadol Hcl 50 Mg Tablet PO 06/15/24 12:04 50 mg
Q6HPRN PRN Administration
mod pain
Review of Systems
-
All Other Systems: Not reviewed unless documented
Physical Exam
-
General: No Apparent Distress and Appears Chronically Ill
HEENT: Jaundice
Psych: Calm and Intact Judgement/Insight
Labs
Lab Results
WBC 13.7 10^3/uL (4.8-10.8) H 05/21/24 03:46
RBC 2.57 10^6/uL (4.70-6.10) L 05/21/24 03:46
Hgb 8.0 g/dL (13.0-18.0) L 05/21/24 03:46
Hct 23.2 % (39.0-52.0) L 05/21/24 03:46
MCV 90.3 fL (80.0-94.0) 05/21/24 03:46
MCH 31.1 pg (27.0-31.0) H 05/21/24 03:46
MCHC 34.5 g/dL (33.0-37.0) 05/21/24 03:46
RDW 18.6 % (11.5-14.5) H 05/21/24 03:46
Plt Count 48 10^3/uL (130-400) L 05/21/24 03:46
MPV Not Reportable 05/21/24 03:46
Abs Immat Gran (auto) 0.8 10^3/uL (0-0.05) H 05/21/24 03:46
Absolute Neuts (auto) 11.0 10^3/uL (1.4-6.5) H 05/21/24 03:46
Absolute Lymphs (auto) 0.6 10^3/uL (1.2-3.4) L 05/21/24 03:46
Absolute Monos (auto) 1.1 10^3/uL (0.1-0.6) H 05/21/24 03:46
Absolute Eos (auto) 0.2 10^3/uL (0-0.7) 05/21/24 03:46
Absolute Basos (auto) 0.0 10^3/uL (0-0.2) 05/21/24 03:46
Immature Gran % 5.5 % (0-0.5) H 05/21/24 03:46
Neutrophils % 80.5 % (42.2-75.2) H 05/21/24 03:46
Lymphocytes % 4.7 % (20.5-51.1) L 05/21/24 03:46
Monocytes % 7.8 % (1.7-9.3) 05/21/24 03:46
Eosinophils % 1.2 % (0-6) 05/21/24 03:46
Basophils % 0.3 % (0-2) 05/21/24 03:46
Creatinine 1.5 mg/dL (0.7-1.3) H 05/21/24 03:46
Vital Signs
Vital Signs
Temp Pulse Resp BP Pulse Ox
97.8 F 64 19 109/91 97
05/21/24 11:08 05/21/24 10:47 05/21/24 10:47 05/21/24 10:47 05/21/24 10:47
[2024-05-21 11:48] LABS: Glucose - Point of Care 82 mg/dl (70-99)
[2024-05-21] MEDS: CUBICIN 10 MG IV (12:05)
--- NOTE | 2024-05-21 13:22 | W.PN.HOSP.TC ---
Today's Communication/Plan
-
Pal Care, Onc - for GOC discussions - patient hospice/comfort candidate
Add daptomycin, Check CPK
Repeat Blood cultures
wean pressors as tolerated; MAP goal >65
Assessment / Plan
Assessment / Plan
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
A/P:
# Now Septic shock with Klebsiella bacteremia, source possibly acute cholangitis
blood culture positive for Klebsiella
check repeat blood culture until clearance
CXR noted small left pleural effusion with associated atelectasis and/or pneumonia, slightly progressed.
CT chest: No pulmonary embolism. Moderate bilateral pleural effusions with associated compressive atelectasis. Mild pulmonary interstitial and alveolar edema.
Procal elevated at 0.89
s/p R thoracentesis 05/17, removed 1050 cc of clear miya pleural fluid. Pleural fluid likely exudative - adenocarcinoma
s/p L thoracentesis 05/19, removed 1000 cc of clear miya pleural fluid. Pleural fluid likely exudative
Cont Zosyn, Add daptomycin pending culture data.
Off Vanc, negative MRSA screen
Cont Levophed, wean as tolerated
Off vasopressin
CT AP 05/19 was limited
Cotton Picker Operator/ID on board
# Acute anemia , unclear cause
Hgb dropped from 8.4 to 6.8 -> 2 units PRBC -> Hgb improved 8.0 today
GI on board
# Acute hypoxic RF, improving
# Bilateral pleural effusions, right side positive for malignancy
high flow NC weaned to 2L NC, cont to wean as tolerated. Pt not on home O2
CT PE neg for PE
-Pleural fluid positive for adenocarcinoma
� May need Pleurx catheter in the future
# Elevated LFT suspect 2/2 cholangiocarcinoma
# HX Biliary stent
Trend LFT
GI on board - now signed off - no gi intervention at this time
-stent in place
-Onc and Pal care consulted for GOC, next steps with poor performance status; Dr. Mejia (primary oncologist - agrees for comfort measures)
# Thrombocytopenia
# Suspect ACD
Trend CBC
2/2 to sepsis
# SUDHIR
SCr 1.6 today, was 1.2 on admission
# Mild hyponatremia
# Benign Hypertension
Hold EXPEDITER SERVICE ORDER BP meds Coreg/hydralazine
# DMT2
Hold PO medications acutely.
Off Insulin drip, DM ARTIST MANNEQUIN COLORING on board
# h/o A flutter
cont EXPEDITER SERVICE ORDER amiodarone
# Hypomagnesemia
monitor and replete
DVT Px: SCD
Code: Full code
Diet: Regular
DW RN
DW Cotton Picker Operator
updated
Critical care time 39 min
Anticipated Discharge: > 48 hours
Subjective/Interval History
-
Date of Service: May 21, 2024
Patient still requiring Levophed
Objective Data
-
Labs:
Laboratory Results
05/21/24
03:46
WBC 13.7 H
Hgb 8.0 L
Hct 23.2 L
Plt Count 48 L
Sodium 135
Potassium 3.9
Chloride 101
Carbon Dioxide 28
BUN 36 H
Creatinine 1.5 H
Glucose 66 L
Calcium 7.8 L
Total Bilirubin 14.1 H
AST 651 H*
ALT 310 H
Alkaline Phosphatase > 2400 H
Vital Signs:
Vital Signs
Temp Pulse Resp BP Pulse Ox
97.8 F 64 19 109/91 97
05/21/24 11:08 05/21/24 10:47 05/21/24 10:47 05/21/24 10:47 07/26/24 10:47
I&O
05/20/24 05/21/24 05/22/24
06:59 06:59 06:59
Intake Total 2129.7 / 2141.0 721.5 / 730.9 183.8 / 183.8
Output Total 1400 / 1400 670 / 845 325 / 325
Balance 729.7 / 741.0 51.5 / -114.1 -141.2 / -141.2
Review of Systems
-
History Source: Patient
All other systems: Not reviewed unless documented
Data Reviewed
-
Diagnostic Radiology: Image personally visualized and interpreted and Report Reviewed by me
CT Scan: Image personally visualized and interpreted and Report Reviewed by me
Labs: Labs Reviewed by me
--- NOTE | 2024-05-21 14:09 | PTCARENOTE ---
AAOx3, remains on levophed titrated down to 3 mcg. cont on IV Daptomycin. diet advanced, poor appetite and intake, PO fluids encouraged. palliative care consult noted, family at bedside emotional support offered. complete bed bath with linen
changed, tolerated without distress
--- NOTE | 2024-05-21 14:23 | PTCARENOTE ---
pt received from previous rn- aox3, at bedside, tolerating minimal food intake. pt jaundice in color, sr with bbb on monitor, on 2LNC. levophed weaned to 2mcg for maintaining map >65. pt turned and repositioned. all safety precautions in place,
call reilly within reach. right chest sub q port site c/d/i, flushes with blood return. two right forearm ivs c/d/i, flush.
--- NOTE | 2024-05-21 14:47 | W.CON.PAL ---
Consultation
-
Date/Time Consultation Requested: 05/21/2024
Date/Time Consultation Performed: 05/21/2024
Requesting Provider: Dr. Way
Performing Provider: Dr. Schultz
Reason for Consult: Goals of Care Discussion
Primary Diagnosis: Metastatic Gall Bladder Cancer
Related Diagnosis: Sepsis
Consult Requested By: Patient's Physician
Primary Care Physician: Dr. Gordon
Reason for Admission
Illness Course/HPI
Mr. 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 He was being treated with cis/gem chemotherapy until February of this year,
further chemotherapy has been on hold due to hospitalizations and recurrent infections. His oncologist is Dr. Mejia at [facility]. Patient was recently admitted to another hospital at the beginning of the month for cholangitis/sepsis, and then
transferred to [facility] rehab. He was readmitted to hospital on 05/17 with shortness of breath and abdominal pain, and was found to have septic shock and was admitted to the ICU. He is currently still on vasopressors, requiring antibiotics, and
had thoracentesis on 05/19 for pleural effusions which were positive for malignancy.
Palliative care was consulted for goals of care conversations.
Earlier in the day patient had discussion with oncology.
Prior living will reviewed - completed in 2022 prior to cancer diagnosis, he wanted all medical interventions, and had appointed as medical poa.
ECW notes, outpatient records reviewed, case discussed with GI team, and reviewed their conversation with patient's oncologist.
Functional Status & Support Systems
Current Functional Status:
At his baseline he is ambulatory and independent for ADLs, however in the past few months due to multiple hospitalizations, he has become very weak.
He lives with his in a 2 [address]ideon home, the first floor bathroom is being renovated/expanded to include full bath
is supported by her two sons Jose and Donte - one who lives very close to them.
ADLS: Significant Assistance
IADLS: Significant Assistance
Review of Advanced Directives
Advanced Care Documentation Status: Complete
Type of Documentation: Living Will
Location of Advanced Care Documentation: [facility]
Surrogate Decision Maker (name & contact): Spouse Brea
Goals of Care Discussion
-
Individuals Present for Discussion & Relationship to Patient:
Patient and spouse brea
Patient able to participate in discussion at time of visit: Yes
Patient's Information Preferences: Fullt Involved/Speak
Illness Severity & Prognosis Discussion
Patient's awareness/understanding of illness: Terminal
Family's awareness/understanding of illness: Terminal
Patient & family understanding of treatment/care options:
Patient and understand that his cancer is advanced and that chemotherapy has been delayed due to recurrent infections. He understands that his condition in the hospital is not good and he has not been able to come off of pressors yet, and that
he can get sicker as well.
Patient Goals & Values Discussion
Most important goals if your health situation worsens:
He is still hopeful for recovery. however, if his health were to worsen, he would prefer to be at home rather than hospital or senior care.
If his condition were to worsen, He does not want intubation or cpr, or feeding tubes.
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
He is aware that this is not likely.
Biggest fears & worries about future of your health:
He is worried about pain (none at present). 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
What are you/are you not willing to go through for more time:
He would be willing to continue current hospital treatments and go to rehab. he does not want artificial nutrition. he does not want repeated hospitalizations.
Summary of Patient's Goals of Care [Text6]:
Patients goals are treatment oriented, we discussed palliative care and hospice options as both ways to help him achieve his goal of returning home. And if his condition worsens, transition to hospice care at that time.
We talked about in home support and what that would look like.
He is not yet ready to make a descision regarding hospice, but he will discuss further with his . Agreed to DNR.
Pain & Symptom Assessment
Wharton Symptom Scale 0=none, 10=worst
Pain: 0
Objective Data
-
Objective Data:
Vital Signs
Temp Pulse Resp BP Pulse Ox
97.8 F 65 21 136/62 95
05/21/24 11:08 05/21/24 14:00 05/21/24 14:00 05/21/24 14:00 05/21/24 14:18
Laboratory Results
05/21/24 03:46
05/21/24 03:46
PT 15.7 Sec (11.4-14.6) H 05/17/24 05:53
INR 1.26 05/17/24 05:53
APTT 30.5 Sec (23.4-35.0) 05/17/24 05:53
Hemoglobin A1c 5.0 % (4.0-5.6) 05/17/24 05:53
Total Protein 4.8 g/dl (6.3-8.2) L 05/21/24 03:46
Albumin 2.2 g/dl (3.5-5.0) L 05/21/24 03:46
Palliative Performance Scale
Palliative Performance Scale:
PPS Level Ambulation Activity & Evidence of Disease Self Care Intake Conscious Level
100% Full Normal Activity & Work; Full Intake Full
No Evidence of Disease
90% Full Normal Activity & Work; Full Normal Full
Some Evidence of Disease
80% Full Normal Activity with Effort Full Normal or Full
Some Evidence of Disease Reduced
70% Reduced Unable Normal Job/Work Full Normal or Full
Significant Disease Reduced
60% Reduced Unable Hobby/Housework Occasional Normal or Full or Confusion
Significant Disease Assistance Reduced
50% Mainly Sit/Lie Unable to do Any Work Considerable Normal or Full or Confusion
Extensive Disease Assistance Req'd Reduced
40% Mainly in Bed Unable to do Most Activity Mainly Assistance Normal or Full or Drowsy;
Extensive Disease Reduced +/- Confusion
30% Totally Bed Unable to do Any Activity Total Care Normal or Full or Drowsy;
Bound Extensive Disease Reduced +/- Confusion
20% Totally Bed Bound Unable to do Any Activity Total Care Minimal to Full or Drowsy;
Extensive Disease Sips +/- Confusion
10% Totally Bed Bound Unable to do Any Activity Total Care Mouth Care Drowsy or Coma;
Extensive Disease Only +/- Confusion
0%
PPS Score Level: 30
Physical Exam
-
General: No Apparent Distress and Appears Chronically Ill
HEENT: Oxygen
Respiratory: Non Labores Respirations
Psych: Calm
Assessment / Plan
-
Assessment/Plan:
Goals of Care:
DNR
Patient understands that prognosis is poor, his goal is to return home, will continue conversations on hospice vs. palliative care approaches for when ready to go home.
If condition worsens, aware that can transition to comfort care an option as well.
Palliative Care Will Follow
Care Reviewed
Data Reviewed
Reviewed with: Patient
Time
Start Date: 05/21/24
Start Time: 01:30
Stop Date: 05/21/24
Stop Time: 03:00
Time Spent:
90
[2024-05-21] MEDS: ULTRAM 50 MG PO (15:45)
[2024-05-21] MEDS: NOVOLOG FLEXPEN-LOW RESISTANCE 1 UNITS SC (16:47)
--- NOTE | 2024-05-21 16:56 | PTCARENOTE ---
levophed weaned off, turned and repositioned frequently. remains on 2LNC, tramadol given for pain.
[2024-05-21 16:57] LABS: Glucose - Point of Care 172 mg/dl (70-99)
--- NOTE | 2024-05-21 20:00 | PTCARENOTE ---
on assessment pt AAOx3, c/o pain, one time Dilaudid given see MAR, generalized weakness, SR with BBB on monitor, 4L NC, denies SOB, uses urinal, R subQ port, pt jaundice, call reilly in reach.
[2024-05-21] MEDS: DILAUDID 0.25 MG IV (20:48)
[2024-05-21] MEDS: MELATONIN 5 MG PO (22:02)
[2024-05-22] VITALS (68 sets, daily range): BP systolic 73–128; BP diastolic 39–74; BMI 26.5
--- NOTE | 2024-05-22 00:37 | PTCARENOTE ---
no change from prior assessment, call reilly in reach.
[2024-05-22 01:49] LABS: Glucose - Point of Care 78 mg/dl (70-99)
--- NOTE | 2024-05-22 04:00 | PTCARENOTE ---
no changes from prior assessment, c/o 01/03 generalized pain, PRN meds given, see MAR, denies chest pain and SOB, call reilly in reach.
[2024-05-22] MEDS: ULTRAM 50 MG PO (04:09)
[2024-05-22] MEDS: ZOSYN 50 IV ×4 (04:10→21:00)
[2024-05-22 04:49] LABS: Hematocrit 23.8 % (39.0-52.0); Hemoglobin 8.3 g/dL (13.0-18.0); Mean Corp Hgb Conc. 34.9 g/dL (33.0-37.0); Mean Corpuscular Hgb 31.2 pg (27.0-31.0); Mean Corpuscular Volume 89.5 fL (80.0-94.0); Platelet Count 57 10^3/uL (130-400); Red Blood Cell Count 2.66 10^6/uL (4.70-6.10); Red Cell Dist. Width 18.6 % (11.5-14.5); White Blood Cell Count 15.3 10^3/uL (4.8-10.8)
[2024-05-22 05:03] LABS: ALT (SGPT) 310 U/L (0-50); AST (SGOT) 609 U/L (17-59); Albumin 2.2 g/dl (3.5-5.0); Blood Urea Nitrogen 33 mg/dl (9-20); Calcium 7.5 mg/dl (8.4-10.2); Carbon Dioxide 32 mmol/L (22-30); Chloride 103 mmol/L (98-107); Creatine Phosphokinase 20 U/L (55-170); Estimated Creatinine Clearance 46 ml/min; Glucose 62 mg/dl (70-99); Sodium 135 mmol/L (135-145); Total Bilirubin 17.5 mg/dl (0.2-1.3); Total Protein 4.7 g/dl (6.3-8.2); eGFR 52.09
[2024-05-22 05:12] LABS: % Basophils 0.3 % (0-2); % Eosinophils 0.5 % (0-6); % Immature Granulocytes 7.4 % (0-0.5); % Lymphocytes 3.9 % (20.5-51.1); % Neutrophils 81.9 % (42.2-75.2); Absolute Eosinophils 0.1 10^3/uL (0-0.7); Absolute Immature Granulocytes 1.1 10^3/uL (0-0.05); Absolute Lymphocytes 0.6 10^3/uL (1.2-3.4); Absolute Monocytes 0.9 10^3/uL (0.1-0.6); Absolute Neutrophils 12.5 10^3/uL (1.4-6.5); Alkaline Phosphatase > 2400 U/L (38-126); Nucleated Red Blood Cells % 0.1 % (-)
--- NOTE | 2024-05-22 07:33 | W.PN.INTV ---
Today's Communication / Plan
Recommendations
Continue antibiotics
Wean oxygen
Monitor for malignant pleural fluid reaccumulation
Norepinephrine weaned-could be transferred out of ICU-pulmonary will continue to follow
Assessment
-
74-year-old male with history of atrial fibrillation, hypertension, sleep apnea, restrictive lung disease and diabetes with a recent diagnosis of cholangiocarcinoma with stents status post chemo recently complicated by infection and returns with
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
Sepsis with shock unresponsive to fluids requiring pressors
Persistent Enterococcus faecium bacteremia
Leukocytosis-WBC 16.1
CHF with reduced EF
Pneumonia
Bilateral right greater than left pleural effusion-malignant
Status post right thoracentesis 05/17/24--1 L clear miya fluid, exudate, cultures negative, cytology positive for metastatic adenocarcinoma
Status post left thoracentesis 05/19/24--1000 mL clear miya fluid
Anemia-hemoglobin 8.4-normocytic
Thrombocytopenia-platelet 104
Mild hyperglycemia
Elevated LFTs
Hypoalbuminemia
Conditions present prior to admission:
Metastatic poorly differentiated gallbladder adenocarcinoma vs cholangiocarcinoma -s/p ERCP with biliary stent placement at [facility] 04/26/2024
Atrial fibrillation.
Hypertension.
Hyperlipidemia.
Diabetes.
Depression.
J CARLOS on CPAP.
Restrictive lung disease.
Decreased diffusing capacity.
Postnasal drip.
Anemia.
Septoplasty. Biliary stenting x 2.
Plan
Hemodynamics have improved-norepinephrine has been weaned
Continue supplemental oxygen
BiPAP if needed
DO NOT INTUBATE and mechanically ventilate if necessary-patient is now a DNR
Aspiration precautions
Nebulizers if needed
CT chest 05/17/2024-no evidence for pulm embolism, moderate bilateral pleural effusions with compressive atelectasis
Chest x-ray 05/18/2024-findings of CHF, small left pleural effusion
Chest x-ray 05/15/2024-improved aeration left lung following thoracentesis, trace left pleural effusion and stable small right pleural effusion
Bilateral pleural effusions
Thoracentesis-right side 05/17/24--1.05 L clear miya fluid, WBC 114, glucose 83, total protein 3.1, LDH 242, pH 7.5, cultures negative, cytology-positive for malignant cells consistent with adenocarcinoma and patient with known cholangiocarcinoma
Thoracentesis-left side 05/19/24--1000 mL clear miya fluid, rujgxau-kunnnezx-iksntnmx for malignant cells consistent with adenocarcinoma
Monitor for fluid reaccumulation-CT abdomen 05/19/2024 with probable right pleural fluid partial reaccumulation
Likely will have pleural fluid reaccumulation with metastatic disease to the pleura-this was reviewed with patient
Discussed probable need for repetitive thoracenteses and even possible Pleurx catheter
If patient becomes increasingly short of breath then chest x-ray could be obtained and repeat drainage could be considered
Cultures reviewed
Blood culture positive for Klebsiella
Blood culture 05/18/2024 positive for Enterococcus
Repeat blood cultures 05/20/20247616-culbiupt-sxemicwytvxbna Enterococcus-vancomycin and ampicillin resistant
Repeat blood cultures 05/21/2024-positive
Repeat blood cultures 05/22/2024-pending
Continue antibiotics-currently on Zosyn and daptomycin
Infectious disease following-correspondence reviewed
Periportal infected fluid collection
Monitor leukocytosis
Decrease IV fluids
Continue pressors-norepinephrine wean-vasopressin discontinued
Cardiology ctypzsaozy-afciqtk-fzjyqpsp with Dr. Lema
Gentle diuresis if blood pressure tolerates
Note: Echocardiogram 05/17/2024-EF 60-65%, PA systolic estimated 70-EF improved from 35%
Troponin trended
Follow renal function, electrolytes, intake/output, lower extremity edema and weight
Replace electrolytes as needed
Status post right thoracentesis-malignant
Status post left sithyqmazoyld-wgcybmim-kgrxrjgpt
Monitor blood sugar
Insulin supplementation as needed
Monitor hemoglobin-yesterday 6.8-received 1 unit 05/18/2024-now 8.3
Transfuse as needed
Heme test stools
GI evaluation ongoing-correspondence reviewed
Stent stable-they believe rising LFTs due to smaller on stentable duct obstructions
CT abdomen and pelvis 05/15/2024-lack of IV contrast limits intra-abdominal abscess or malignant soft tissue evaluation, small periportal fluid attenuation, bile duct stent appears well-positioned, mild abdominal ascites, patchy airspace
opacifications lingula and left lower lobe suspicious for pneumonia, moderate right and small left pleural effusion
PPI
Monitor LFTs-still climbing-quite icteric-total bilirubin now 17.5
Oncology saw patient-reviewed with Dr. Bravo DNR recommended, she spoke with Dr. Baxter Who agrees comfort measures are most appropriate
Performance status unfortunately too poor to initiate chemotherapy that may be his only hope for tumor regression/ductal obstruction regression and improvement in LFTs
Patient had remained hopeful he could reinitiate chemotherapy-GI team has been in communication with as well-his oncologist
Palliative care physician-Dr. Schultz evaluated patient and discussed goals of care-patient not ready for hospice but is agreeable to DNR and palliative care
DVT prophylaxis-mechanical
Dr. Fofana updates at the bedside daily
DVT prophylaxis-mechanical
GI prophylaxis-on pantoprazole
Nutrition-advance diet per GI
Early mobilization/bedside range of motion
The patient has been weaned off pressors and could be moved out of ICU-pulmonary will continue to follow
Reviewed extensively with 05/21/2024 who joined multidisciplinary rounds-tearful and realistic, agreement with oncological evaluation and palliative care assessment
Reviewed [facility] records from discharge 03/15/20247330-tkniw-nqbqfekuz abscesses, seen by infectious disease and placed on long-term antibiotics-Cipro and metronidazole, follows Dr. Mejia at [facility] oncology treated with
gemcitabine, cisplatin, durvalumab-last dose 03/03/2024
Outpatient oncology xcjvkw-ps-yhaa to resume chemotherapy once infections under control
Patient was last seen pulmonary/sleep disorders office 04/22/[address] Fofana and has a follow-up appointment 05/27/2024 at 1015 with Kae Garcia NP
Reviewed the patient's pertinent medical records including radiographs, pressor management, microbiology, laboratory evaluations, and discussion with primary team, consultants, pharmacy, nutrition, physical therapy, case management, charge nurse,
critical care nursing, and respiratory therapy.
Diagnostic data:
Chest x-ray 05/17/2024-pulmonary edema with small bilateral pleural effusions
CT chest with PE protocol 10/24/20--no Pulmonary Embolism, no significant other abnormalities,Patient notified.
CT chest abdomen and pelvis 12/04/2023-multiple fluid collections in perihepatic region including collection within the gallbladder fossa, no evidence for metastatic disease in the chest abdomen or pelvis, mild prostate enlargement
Lower extremity ultrasound 02/09/2024-no evidence for lower extremity deep venous thrombosis
Stress echocardiogram 06/12/20--no EKG or echocardiographic evidence of myocardial ischemia, lightheadedness and shortness of breath with exercise which resolved in recovery, overall low to intermediate risk study.
Spirometry 09/20/20--FEV1 2.3 L-77%, FVC 2.92 L-71%, no significant BD response. Mild restriction.
PFT 11/10/20--FEV1 2.7 L-91%, FVC 3.3, 1 L-79%, TLC 68%, RV 45%, DLCO 83%. Mild restriction and mild reduction in diffusing capacity.
Spirometry 09/26/21-FEV1 2.29 L, 88%, FVC 2.78 L-80%, no significant BD response. Mild restriction.
PFT 11/14/22-FEV1 2.25 L-78%, FVC 2.5 L 69% , TLC 63%, RV 40%, DLCO 76%. Mild to moderate restriction and mild reduction in diffusing capacity
Spirometry 07/16/23-FEV1 2.2-91%, FVC 2.7-79%,No significant BD response. Mild restriction.
Originally diagnosed around 2006 PSG-AHI-20, desaturation hillary 86%, CPAP 9 cm
PSG 09/16/18--AHI-16.7, desaturation hillary 84%, 0.7% time <90% saturation.
Subjective Dataa
Subjective Data
Date of Service:
Date of Service: May 22, 2024
Chief Complaint: Recreational Aide Follow Up and Pulmonary Follow Up
Subjective:
Patient tired, no complaints of shortness of breath, productive cough or abdominal pain
Review of Systems
General: Other (Per HPI)
Objective Data
Data Reviewed
Vital Signs / I&O / Oxygen:
Vital Signs
Temp Pulse Resp BP Pulse Ox
98.1 F 62 14 122/52 98
05/22/24 06:34 05/22/24 06:30 05/22/24 06:30 05/22/24 06:30 05/22/24 06:30
Intake and Output
05/21/24 05/22/24 05/23/24
06:59 06:59 06:59
Intake Total 721.5 / 730.9 489.2 / 489.2
Output Total 670 / 845 850 / 850
Balance 51.5 / -114.1 -360.8 / -360.8
SaO2 98
Nasal Cannula flow liters per 4
minute
Physical Exam
General: Respiratory Distress (n) and Comfortable
HEENT: Normocephalic and Anicteric
Cardiovascular: Regular Rhythm, Murmur and Peripheral Edema
Respiratory: Clear (Diminished breath sounds at both bases and rare crackles), Wheeze (n), Crackles (Rare crackles), Rhonchi (n), Non-Labored Respirations, Accessory Resp Muscle Use (n) and Stridor (n)
GI: Soft, Non Distended and Non Tender
Neurology: Awake, Alert and No Motor Deficits
Skin: Warm, Good Color, Cyanosis (n), Jaundice (n), Rash and Other (Icteric)
Labs/Micro/Reports
Lab Data
05/22/24 04:25
05/22/24 04:25
Microbiology
05/19/24 11:55 Pleural Fluid Body Fluid Culture - Preliminary
No Growth After 48 Hours
05/19/24 11:55 Pleural Fluid Gram Stain - Preliminary
05/18/24 08:25 Blood/Venous Blood Culture - Preliminary
Enterococcus species
05/18/24 08:25 Blood/Venous Gram Stain - Preliminary
05/20/24 10:23 Blood/Venous Blood Culture - Preliminary
Positive culture in progress
05/20/24 10:23 Blood/Venous Gram Stain - Preliminary
05/17/24 13:59 Pleural Fluid Body Fluid Culture - Final
No Growth After 72 Hours
05/17/24 13:59 Pleural Fluid Gram Stain - Final
05/17/24 01:21 Blood/Venous Blood Culture - Final
Klebsiella pneumoniae
05/17/24 01:21 Blood/Venous Gram Stain - Final
[2024-05-22] MEDS: NOVOLOG FLEXPEN-LOW RESISTANCE SC ×3 (08:08→17:45)
[2024-05-22] MEDS: CYMBALTA DELAYED RELEASE 20 MG PO (08:15)
[2024-05-22] MEDS: ProAmatine 5 MG PO ×3 (08:15→17:43)
[2024-05-22] MEDS: PROTONIX 40 MG PO (08:15)
[2024-05-22] MEDS: PACERONE 200 MG PO (08:15)
[2024-05-22] MEDS: DESENEX/MITRAZOL/ZEASORB 1 APPLIC TOPICAL ×2 (08:15→20:50)
[2024-05-22 08:18] LABS: Glucose - Point of Care 76 mg/dl (70-99)
[2024-05-22] MEDS: LANTUS SC (09:00)
--- NOTE | 2024-05-22 09:12 | W.PN.ID1 ---
Addendum entered and electronically signed by Janessa Garrison MD 05/22/24 10:06:
Additional sensi released from lab:
Blood Culture Preliminary 05/22/24-958
Enterococcus faecium - VRE
[place] [id number] on 05/22/24 at 0818 by LASHONDA
Organism 1 Enterococcus faecium - VRE
1. Enterococcus faecium - VRE
M.I.C. RX
--------- ---
Ampicillin >8 R
Ciprofloxacin >2 R
Daptomycin >4 R
Gentamicin Synergy Screen <=500 S
Linezolid 2 S
Levofloxacin >4 R
Tetracycline >8 R
Vancomycin >16 R
Best of very limited options for the VRE is linezolid.
Stopped sertraline - observe for discontinuation symptoms. Its a category X interaction.
Stopped tramadol, could increase opiates
If patient transitions to hospice could use either linezolid or sertraline, I would not use both together. Favor stopping antibiotics and restarting the sertraline if that decision is finalized.
Original Note:
Date of Service
Date of Service: May 22, 2024
Today's Communication
Continue with Zosyn.
continue Daptomycin
Requested additional sensitivities
Short to medium term prognosis grim. Agree with life expectancy of days to weeks at the very most - recommend hospice - discussed frankly with patient and . They are considering the logistics of this.
Assessment / Plan
Leukocytosis
Bacteremia
-Admission blood cultures with Klebsiella pneumoniae.
-Blood cultures on 05/18 positive for Vanc/Amp resistant Enterococcus.
-Repeat bcx 05/20 remains positive VRE
Periportal fluid collection
- suspect they are infected given histsory and presenation
Nausea/vomiting
- improved
Bilateral pleural effusions
- s/p thoracentesis
- cx neg
Metastatic Cholangiocarcinoma- hx stent
Clinical sepsis
- blood cultures with Klebsiella and Enterococci; suspect GI source.
Transaminitis
Hyperbilirubinemia
A-fib
GERD
HTN
Dyslipidemia
NIDDM
Depression
Sleep apnea (on CPAP)
Hx pericarditis
Renal insufficiency
Ascites
Anemia
Recommendations:
Aerobic blood culture bottle from 05/18 with Enterococcus. Blood cultures from 05/17 with Klebsiella pneumoniae
requested lab check & release dapto sensi
repeat blood culture from today in progress
CK acceptable, repeat on mondays
Suspect abdominal fluid collections likely infected and relapsing remitting course would be common even if patient had
Continue with Zosyn.
continue Daptomycin
Requested additional sensitivities
Monitor white count and temperature curve.
Discharge note from [facility] reviewed by Dr Farnsworth. Patient found to have abdominal collections during the admission in February, and was discharged on Cipro/metronidazole.
Short to medium term prognosis grim. Agree with life expectancy of days to weeks at the very most - recommend hospice - discussed frankly with patient and . They are considering the logistics of this.
����������������������������������������������������������
Chief Complaint
-: Clinical Sepsis, Pneumonia and Bacteremia
Subjective / Review of Systems
afebrile
bp stable now off of pressors
persistent leukocytosis
thrombocytopenia
cr 1.4
further progression of T bili and AST, ALT; alk phos greater than the detectable level
Vital Signs / Physical Exam
Vital Signs
Vital Signs
Temp Pulse Resp BP Pulse Ox
97.4 F 62 14 122/52 98
05/22/24 08:05 05/22/24 06:30 05/22/24 06:30 05/22/24 06:30 05/22/24 06:30
Physical Exam
Constitutional: No Acute Distress
Cardiovascular: Regular Rate and S1/S2; Negative Murmur or Rub
Pulmonary: Clear and Symmetric; Negative Wheezes or Rales
Gastrointestinal: Soft, Non Tender, Non Distended and Normal Bowel Sounds
Skin: Warm, Dry and Jaundice (marked); Negative Rash
Neurological: AO x 3
Lines: Port (functional)
Objective Data
Lab Data
Lab Results
05/22/24 04:25
05/22/24 04:25
PT 15.7 Sec (11.4-14.6) H 05/17/24 05:53
INR 1.26 05/17/24 05:53
APTT 30.5 Sec (23.4-35.0) 05/17/24 05:53
Estimated Creat Clear 46 ml/min 05/22/24 04:25
Lactic Acid Cancelled 05/17/24 17:40
Total Bilirubin 17.5 mg/dl (0.2-1.3) H 05/22/24 04:25
AST 609 U/L (17-59) H* 05/22/24 04:25
ALT 310 U/L (0-50) H 05/22/24 04:25
Alkaline Phosphatase > 2400 U/L (38-126) H 05/22/24 04:25
Most recent labs reviewed.
Micro Results:
05/21/24 14:46 Blood Culture - Preliminary
Blood/Venous Positive culture in progress
Gram Stain - Preliminary
05/20/24 10:23 Blood Culture - Preliminary
Blood/Venous Enterococcus faecium - VRE
Gram Stain - Preliminary
05/18/24 08:25 Blood Culture - Preliminary
Blood/Venous Enterococcus faecium - VRE
Gram Stain - Preliminary
05/22/24 04:25 Blood Culture - Pending
Blood/Venous
05/19/24 11:55 Body Fluid Culture - Preliminary
Pleural Fluid No Growth After 48 Hours
Gram Stain - Preliminary
05/17/24 13:59 Body Fluid Culture - Final
Pleural Fluid No Growth After 72 Hours
Gram Stain - Final
05/17/24 01:21 Blood Culture - Final
Blood/Venous Klebsiella pneumoniae
Gram Stain - Final
05/17/24 06:14 MRSA Screen - Final
Nose No Methicillin Resistant Staphylococcus aureus isolated.
Imaging:
05/19/2024 CT abdomen/pelvis without contrast lack of IV contrast significantly limits examination. A periportal fluid attenuation focus likely corresponds to the finding on the recent prior abdominal ultrasound. Bile duct stents appear
well-positioned. Mild abdominal ascites. Patchy airspace opacities in the lingula and left lower lobe
CXR (05/17/2024): Official report pending. Film personally viewed and suggest a left upper lobe and right middle lobe infiltrate.
05/17/2024 CT chest: Official report pending. Bilateral pleural effusions noted. Significant atelectasis noted secondary to the effusions. Pneumonia suspected.
Care Review
Plan reviewed with: Nurse (eduardosice, family understanding of condition)
[2024-05-22] MEDS: ZYVOX 600 MG PO ×2 (11:08→20:50)
[2024-05-22 12:13] LABS: Glucose - Point of Care 112 mg/dl (70-99)
--- NOTE | 2024-05-22 12:29 | W.PN.HOSP.TC ---
Today's Communication/Plan
-
midodrine - weaned off norepi - can wean midodrine further as tolerated
start Linezolid as per ID, cont zosyn
Stop Sertraline, tramadol
repeat blood cultures
monitor respiratory status
Assessment / Plan
Assessment / Plan
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
A/P:
# Now Septic shock with Klebsiella bacteremia, source possibly acute cholangitis
blood culture positive for Klebsiella; Enterococcus Faecium VRE
check repeat blood culture until clearance
CXR noted small left pleural effusion with associated atelectasis and/or pneumonia, slightly progressed.
CT chest: No pulmonary embolism. Moderate bilateral pleural effusions with associated compressive atelectasis. Mild pulmonary interstitial and alveolar edema.
Procal elevated at 0.89
s/p R thoracentesis 05/17, removed 1050 cc of clear miya pleural fluid. Pleural fluid likely exudative - adenocarcinoma
s/p L thoracentesis 05/19, removed 1000 cc of clear miya pleural fluid. Pleural fluid likely exudative
Cont Zosyn, Add Linezolid- stop sertraline unless going to comfort while on Linezolid; Stop tramadol;
Off Vanc, negative MRSA screen
Weaned off Norepinephrine with midodrine on
Off vasopressin
CT AP 05/19 was limited
Sr Solutions Consultant/ID on board
# Acute anemia , unclear cause
Hgb dropped from 8.4 to 6.8 -> 2 units PRBC -> Hgb improved
GI signed off
# Acute hypoxic RF, improving
# Bilateral pleural effusions, right side positive for malignancy
high flow NC weaned to 2L NC, cont to wean as tolerated. Pt not on home O2
CT PE neg for PE
-Pleural fluid positive for adenocarcinoma
� May need Pleurx catheter in the future, CTM
# Elevated LFT suspect 2/2 cholangiocarcinoma
# HX Biliary stent
Trend LFT
GI on board - now signed off - no gi intervention at this time
-stent in place
-Onc and Pal care consulted for GOC, next steps with poor performance status; Dr. Mejia (primary oncologist - agrees for comfort measures)
-Improving
# Thrombocytopenia
# Suspect ACD
Trend CBC
2/2 to sepsis
# SUDHIR
SCr 1.4 today, was 1.2 on admission
Improving
# Mild hyponatremia
# Benign Hypertension
Hold DIPLOMATIC OFFICER BP meds Coreg/hydralazine
# DMT2
Hold PO medications acutely.
Off Insulin drip, DM ACCORDION TUNER on board
# h/o A flutter
cont DIPLOMATIC OFFICER amiodarone
# Hypomagnesemia
monitor and replete
DVT Px: SCD
Code: Full code
Diet: Regular
DW RN
DW Sr Solutions Consultant
updated
Anticipated Discharge: > 48 hours
Subjective/Interval History
-
Date of Service: May 22, 2024
off pressors; lfts trending down; VRE noted in the blood
Objective Data
-
Labs:
Laboratory Results
05/22/24
04:25
WBC 15.3 H
Hgb 8.3 L
Hct 23.8 L
Plt Count 57 L
Sodium 135
Potassium 4.0
Chloride 103
Carbon Dioxide 32 H
BUN 33 H
Creatinine 1.4 H
Glucose 62 L
Calcium 7.5 L
Total Bilirubin 17.5 H
AST 609 H*
ALT 310 H
Alkaline Phosphatase > 2400 H
Vital Signs:
Vital Signs
Temp Pulse Resp BP Pulse Ox
97.4 F 62 14 122/52 98
05/22/24 08:05 05/22/24 06:30 05/22/24 06:30 05/22/24 06:30 05/22/24 06:30
I&O
05/21/24 05/22/24 05/23/24
06:59 06:59 06:59
Intake Total 721.5 / 730.9 489.2 / 489.2
Output Total 670 / 845 850 / 850
Balance 51.5 / -114.1 -360.8 / -360.8
Review of Systems
-
History Source: Patient
All other systems: Not reviewed unless documented
Physical Exam
-
General: Well Developed, Well Nourished, Respiratory Distress, Conversant and Appears Chronically Ill
HEENT: Normocephalic, Atraumatic, Nose Appears Normal, Ears Appear Normal and Oxygen (2L NC)
Respiratory: Clear to Auscultation and Non Labored Respirations; Negative Accessory Resp Muscle Use
Cardiac: Regular Rhythm and S1/S2
GI: Soft, Nontender, Nondistended and Normal Bowel Sounds
Musculoskeletal: Edema, Right Lower Extrem and Edema, Left Lower Extrem
Skin: Warm and Dry
Neuro: Awake, Alert and Oriented
Psych: Calm and Intact Judgement/Insight
Data Reviewed
-
Diagnostic Radiology: Image personally visualized and interpreted and Report Reviewed by me
CT Scan: Image personally visualized and interpreted and Report Reviewed by me
Labs: Labs Reviewed by me
--- NOTE | 2024-05-22 12:42 | PTCARENOTE ---
Pt drowsy with very poor appetite. Reports general discomfort in bed. Repositioned frequently. BP remains stable off Levophed. Pt reported nasal congestion, nasal spray requested. SpO2 dipped to 80% on RA. Now 95% on 5L NC. Lungs diminished.
All other assessments unchanged.
[2024-05-22] MEDS: OCEAN, SALINE MIST 1 SPRAYS NASAL (13:43)
[2024-05-22] MEDS: DILAUDID 0.25 MG IV ×2 (16:04→21:01)
[2024-05-22 17:56] LABS: Glucose - Point of Care 121 mg/dl (70-99)
[2024-05-22] MEDS: ZOFRAN 4 MG IV (19:00)
--- NOTE | 2024-05-22 20:30 | PTCARENOTE ---
on assessment pt AAOx3, c/o pain, PRN Dilaudid given see MAR, generalized weakness, SR with BBB on monitor, restarted levo gtt, 4L NC, denies SOB, uses urinal, R subQ port, pt jaundice, call reilly in reach.
[2024-05-22] MEDS: LEVOPHED 250 IV (20:51)
[2024-05-22 21:45] LABS: Glucose - Point of Care 119 mg/dl (70-99)
[2024-05-23] VITALS (26 sets, daily range): BP systolic 82–125; BP diastolic 33–59; BMI 27.0
[2024-05-23] MEDS: DILAUDID 0.25 MG IV ×3 (03:38→12:02)
[2024-05-23] MEDS: ZOSYN 50 IV ×2 (03:38→10:10)
[2024-05-23 04:10] LABS: % Basophils 0.3 % (0-2); % Eosinophils 0.1 % (0-6); % Immature Granulocytes 6.4 % (0-0.5); % Lymphocytes 1.8 % (20.5-51.1); % Monocytes 5.5 % (1.7-9.3); % Neutrophils 85.9 % (42.2-75.2); Absolute Basophils 0.1 10^3/uL (0-0.2); Absolute Immature Granulocytes 1.7 10^3/uL (0-0.05); Absolute Lymphocytes 0.5 10^3/uL (1.2-3.4); Absolute Monocytes 1.5 10^3/uL (0.1-0.6); Absolute Neutrophils 22.9 10^3/uL (1.4-6.5); Hematocrit 25.5 % (39.0-52.0); Hemoglobin 8.8 g/dL (13.0-18.0); Mean Corp Hgb Conc. 34.5 g/dL (33.0-37.0); Mean Corpuscular Volume 89.8 fL (80.0-94.0); Nucleated Red Blood Cells % 0.1 % (-); Platelet Count 88 10^3/uL (130-400); Red Blood Cell Count 2.84 10^6/uL (4.70-6.10); Red Cell Dist. Width 19.2 % (11.5-14.5); White Blood Cell Count 26.6 10^3/uL (4.8-10.8)
[2024-05-23 04:29] LABS: ALT (SGPT) 323 U/L (0-50); AST (SGOT) 595 U/L (17-59); Albumin 2.4 g/dl (3.5-5.0); Blood Urea Nitrogen 35 mg/dl (9-20); Calcium 7.8 mg/dl (8.4-10.2); Carbon Dioxide 28 mmol/L (22-30); Chloride 101 mmol/L (98-107); Estimated Creatinine Clearance 43 ml/min; Glucose 130 mg/dl (70-99); Sodium 135 mmol/L (135-145); Total Bilirubin 22.5 mg/dl (0.2-1.3); Total Protein 5.1 g/dl (6.3-8.2); eGFR 47.95
[2024-05-23 04:51] LABS: Alkaline Phosphatase > 2400 U/L (38-126)
[2024-05-23 08:03] LABS: Glucose - Point of Care 168 mg/dl (70-99)
[2024-05-23] MEDS: PACERONE 200 MG PO (08:16)
[2024-05-23] MEDS: ZYVOX 600 MG PO (08:16)
[2024-05-23] MEDS: ProAmatine 5 MG PO (08:16)
[2024-05-23] MEDS: PROTONIX 40 MG PO (08:17)
[2024-05-23] MEDS: DESENEX/MITRAZOL/ZEASORB 1 APPLIC TOPICAL ×2 (08:18→20:24)
[2024-05-23] MEDS: NOVOLOG FLEXPEN-LOW RESISTANCE 1 UNITS SC (08:19)
--- NOTE | 2024-05-23 08:47 | W.PN.HOSP.TC ---
Today's Communication/Plan
-
Unfortunately LFTs are trending up-indicating poor prognosis
Encourage p.o. intake
Wean Levophed as tolerated
Decreased dose of Lantus to be started tonight.
Assessment / Plan
Assessment / Plan
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
CVS: S1-S2 normal
Chest: decreased BS at bases
Abdomen: Soft, NT
Extremities: No edema
sacrum- MASD, also fungal appearing rash
Echo 05/17/2024-normal LV size and function. Ejection fraction 60 to 65%. Normal RV size and systolic function. Flattened septum in the systole consistent with RV pressure overload. Mild to moderate TR. Pulmonary artery pressures 90 mmHg.
Pleural effusion
# Now Septic shock with Klebsiella bacteremia, source possibly from acute cholangitis
blood culture positive for Klebsiella; Enterococcus Faecium VRE
check repeat blood culture until clearance
CXR noted small left pleural effusion with associated atelectasis and/or pneumonia, slightly progressed.
CT chest: No pulmonary embolism. Moderate bilateral pleural effusions with associated compressive atelectasis. Mild pulmonary interstitial and alveolar edema.
Procal elevated at 0.89
s/p R thoracentesis 05/17, removed 1050 cc of clear miya pleural fluid. Pleural fluid exudative - adenocarcinoma
s/p L thoracentesis 05/19, removed 1000 cc of clear miya pleural fluid.
Cont Zosyn, Add Linezolid- stop sertraline unless going to comfort while on Linezolid; Stop tramadol;
Off Vanc, negative MRSA screen
Back On pressors now
CT AP 05/19 was limited
Roadway Technician/ID following
# Acute anemia , unclear cause
Hgb dropped from 8.4 to 6.8 -> 2 units PRBC -> Hgb improved
GI signed off
# Acute hypoxic RF, improving
Restrictive lung disease and Decreased diffusing capacity.
Bilateral pleural effusions, right side positive for malignancy
High flow NC weaned to 3L NC, cont to wean as tolerated. Pt not on home O2
CT PE neg for PE
Pleural fluid positive for adenocarcinoma
May need Pleurx catheter in the future,continue to monitor
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
Last chemotherapy was February 2024. Since then he has had repeated admissions and not able to get any.
Elevated LFT suspect 2/2 cholangiocarcinoma
Onc and Pal care consulted for GOC, next steps with poor performance status; Dr. Mejia (primary oncologist - agrees for comfort measures)
# Hypomagnesemia-monitor and replete
# Thrombocytopenia-likely secondary to sepsis
# Suspect anemia of chronic disease-malignancy
# Paroxysmal atrial fibrillation-Amiodarone
# Chronic heart failure with preserved ejection fraction
# SUDHIR-SCr 1.5 today, was 1.2 on admission
# Hyperlipidemia-Hold statin due to elevated LFTs
# Unstageable pressure injury Left hip and left heel
# Mild hyponatremia-resolved
# Benign Hypertension-Hold CLIENT SERVICE ADMINISTRATOR meds Coreg/hydralazine
# DMT2 hemoglobin A1c 5.0 . Not reliable
Hold PO medications acutely. [Glipizide, metformin, pioglitazone]
Lantus insulin
#J CARLOS on CPAP.
# Moderate protein calorie malnutrition
# DVT Px: SCD
# Code: DNR
# Diet: Regular
DW RN
DW at bedside
Poor prognosis. Patient is hospice appropriate if he is 'ready '.
CC time 32 min
Anticipated Discharge: > 48 hours
Subjective/Interval History
-
Date of Service: May 23, 2024
Objective Data
-
Labs:
Laboratory Results
05/23/24
03:49
WBC 26.6 H
Hgb 8.8 L
Hct 25.5 L
Plt Count 88 L D
Sodium 135
Potassium 4.0
Chloride 101
Carbon Dioxide 28
BUN 35 H
Creatinine 1.5 H
Glucose 130 H
Calcium 7.8 L
Total Bilirubin 22.5 H*
AST 595 H*
ALT 323 H
Alkaline Phosphatase > 2400 H
Vital Signs:
Vital Signs
Temp Pulse Resp BP Pulse Ox
97.5 F 67 19 125/55 97
05/23/24 07:00 05/23/24 08:09 05/23/24 08:09 05/23/24 08:09 05/23/24 08:09
I&O
05/22/24 05/23/24 05/24/24
06:59 06:59 06:59
Intake Total 489.2 / 489.2 506.6 / 525.4 37.6 / 37.6
Output Total 850 / 850 430 / 430
Balance -360.8 / -360.8 76.6 / 95.4 37.6 / 37.6
[2024-05-23] MEDS: LEVOPHED 250 IV (09:21)
--- NOTE | 2024-05-23 09:24 | W.PN.INTV ---
Today's Communication / Plan
Recommendations
Continue pressors
Comfort a priority
Antibiotics per infectious disease
Palliative care following
Prognosis unfortunately extremely poor
Assessment
-
74-year-old male with history of atrial fibrillation, hypertension, sleep apnea, restrictive lung disease and diabetes with a recent diagnosis of cholangiocarcinoma with stents status post chemo recently complicated by infection and returns with
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
Sepsis with shock unresponsive to fluids requiring pressors
Persistent Enterococcus faecium bacteremia
Leukocytosis-WBC 16.1
CHF with reduced EF
Pneumonia
Bilateral right greater than left pleural effusion-malignant
Status post right thoracentesis 05/17/24--1 L clear miya fluid, exudate, cultures negative, cytology positive for metastatic adenocarcinoma
Status post left thoracentesis 05/19/24--1000 mL clear miya fluid
Anemia-hemoglobin 8.4-normocytic
Thrombocytopenia-platelet 104
Mild hyperglycemia
Elevated LFTs
Hypoalbuminemia
Conditions present prior to admission:
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
Atrial fibrillation.
Hypertension.
Hyperlipidemia.
Diabetes.
Depression.
J CARLOS on CPAP.
Restrictive lung disease.
Decreased diffusing capacity.
Postnasal drip.
Anemia.
Septoplasty. Biliary stenting x 2.
Plan
Hemodynamically still unstable-critically ill-pressors reinitiated-norepinephrine
Continue supplemental oxygen-marginal saturations-suspect slow pleural fluid reaccumulation
BiPAP if needed
DO NOT INTUBATE and mechanically ventilate if necessary-patient is now a DNR
Aspiration precautions
Nebulizers if needed
CT chest 05/17/2024-no evidence for pulm embolism, moderate bilateral pleural effusions with compressive atelectasis
Chest x-ray 05/18/2024-findings of CHF, small left pleural effusion
Chest x-ray 05/19/2024-improved aeration left lung following thoracentesis, trace left pleural effusion and stable small right pleural effusion
Chest x-ray 05/24/2024 ordered
Bilateral pleural effusions
Thoracentesis-right side 05/17/24--1.05 L clear miya fluid, WBC 114, glucose 83, total protein 3.1, LDH 242, pH 7.5, cultures negative, cytology-positive for malignant cells consistent with adenocarcinoma and patient with known cholangiocarcinoma
Thoracentesis-left side 05/19/24--1000 mL clear miya fluid, ghyvtdy-ubkvgqwq-njducrle for malignant cells consistent with adenocarcinoma
Monitor for fluid reaccumulation-CT abdomen 05/19/2024 with probable right pleural fluid partial reaccumulation
Likely will have pleural fluid reaccumulation with metastatic disease to the pleura-this was reviewed with patient
Discussed probable need for repetitive thoracenteses and even possible Pleurx catheter
If patient becomes increasingly short of breath then chest x-ray could be obtained and repeat drainage could be considered
Chest x-ray tomorrow-if significant fluid reaccumulation and consider repeat thoracentesis
Cultures reviewed
Blood culture positive for Klebsiella
Blood culture 05/18/2024 positive for Enterococcus
Repeat blood cultures 05/20/[id number] Enterococcus-vancomycin and ampicillin resistant
Repeat blood cultures 05/21/2024-positive
Repeat blood cultures 05/22/2024-pending
Continue antibiotics-currently on Zosyn and daptomycin
Infectious disease following-correspondence reviewed
Periportal infected fluid collection
Monitor leukocytosis
Decrease IV fluids
Continue pressors-norepinephrine wean-vasopressin discontinued
Cardiology evaluation-correspondence reviewed
Gentle diuresis if blood pressure tolerates
Note: Echocardiogram 05/17/2024-EF 60-65%, PA systolic estimated 70-EF improved from 35%
Troponin trended
Follow renal function, electrolytes, intake/output, lower extremity edema and weight
Replace electrolytes as needed
Status post right thoracentesis-malignant
Status post left [id number]-tkdklfqd-gfflahoht
Monitor blood sugar
Insulin supplementation as needed
Monitor hemoglobin-yesterday 6.8-received 1 unit 05/18/2024-now 8.8
Transfuse as needed
Heme test stools
GI evaluation ongoing-correspondence reviewed
Stent stable-they believe rising LFTs due to smaller on stentable duct obstructions
CT abdomen and pelvis 05/15/2024-lack of IV contrast limits intra-abdominal abscess or malignant soft tissue evaluation, small periportal fluid attenuation, bile duct stent appears well-positioned, mild abdominal ascites, patchy airspace
opacifications lingula and left lower lobe suspicious for pneumonia, moderate right and small left pleural effusion
PPI
Monitor LFTs-still climbing-quite icteric-total bilirubin now 22.5
Oncology saw patient-05/21/2024-reviewed with Dr. Bravo DNR recommended, she spoke with Dr. Owen Mejia who agrees comfort measures are most appropriate
Performance status unfortunately too poor to initiate chemotherapy that may be his only hope for tumor regression/ductal obstruction regression and improvement in LFTs
Patient had remained hopeful he could reinitiate chemotherapy-GI team has been in communication with as well-his oncologist
Palliative care physician-Dr. Schultz evaluated patient and discussed goals of care-patient not ready for hospice but is agreeable to DNR and palliative care
DVT prophylaxis-mechanical
Dr. Fofana updates at the bedside daily
DVT prophylaxis-mechanical
GI prophylaxis-on pantoprazole
Nutrition-advance diet per GI
Early mobilization/bedside range of motion
If the patient is weaned off pressors then could be moved out of ICU-pulmonary will continue to follow
Reviewed extensively with 05/21/2024 who joined multidisciplinary rounds-tearful and realistic, agreement with oncological evaluation and palliative care assessment
Reviewed [facility] records from discharge 03/15/[id number]-nmfukgsdu abscesses, seen by infectious disease and placed on long-term antibiotics-Cipro and metronidazole, follows Dr. Mejia at [place] oncology treated with
gemcitabine, cisplatin, durvalumab-last dose 03/03/2024
Outpatient oncology [id number]-bi-[id number] to resume chemotherapy once infections under control
Patient was last seen pulmonary/sleep disorders office 04/22/[address] Fofana and has a follow-up appointment 05/27/2024 at 1015 with Kae Garcia NP
Critical care statement: A total of 38 minutes of critical care time was provided for this patient today. This includes management of unstable vital signs, evaluation of the patient at bedside, reviewing the patient's pertinent medical records
including radiographs, pressor management, microbiology, laboratory evaluations, and discussion with primary team, consultants, pharmacy, nutrition, physical therapy, case management, charge nurse, critical care nursing, and respiratory therapy.
Diagnostic data:
Chest x-ray 05/17/2024-pulmonary edema with small bilateral pleural effusions
CT chest with PE protocol 10/24/20--no Pulmonary Embolism, no significant other abnormalities,Patient notified.
CT chest abdomen and pelvis 12/04/2023-multiple fluid collections in perihepatic region including collection within the gallbladder fossa, no evidence for metastatic disease in the chest abdomen or pelvis, mild prostate enlargement
Lower extremity ultrasound 02/09/2024-no evidence for lower extremity deep venous thrombosis
Stress echocardiogram 06/12/20--no EKG or echocardiographic evidence of myocardial ischemia, lightheadedness and shortness of breath with exercise which resolved in recovery, overall low to intermediate risk study.
Spirometry 09/20/20--FEV1 2.3 L-77%, FVC 2.92 L-71%, no significant BD response. Mild restriction.
PFT 11/10/20--FEV1 2.7 L-91%, FVC 3.3, 1 L-79%, TLC 68%, RV 45%, DLCO 83%. Mild restriction and mild reduction in diffusing capacity.
Spirometry 09/26/21-FEV1 2.29 L, 88%, FVC 2.78 L-80%, no significant BD response. Mild restriction.
PFT 11/14/22-FEV1 2.25 L-78%, FVC 2.5 L 69% , TLC 63%, RV 40%, DLCO 76%. Mild to moderate restriction and mild reduction in diffusing capacity
Spirometry 07/16/23-FEV1 2.2-91%, FVC 2.7-79%,No significant BD response. Mild restriction.
Originally diagnosed around 2006 PSG-AHI-20, desaturation hillary 86%, CPAP 9 cm
PSG 09/16/18--AHI-16.7, desaturation hillary 84%, 0.7% time <90% saturation.
Subjective Dataa
Subjective Data
Date of Service:
Date of Service: May 23, 2024
Chief Complaint: Gas Meter Checker Follow Up and Pulmonary Follow Up
Subjective:
Sleepy, not eating well, pain controlled with Dilaudid, no increased complaints of shortness of breath, chest pain, or abdominal pain
Review of Systems
General: Other (Per HPI)
Objective Data
Data Reviewed
Vital Signs / I&O / Oxygen:
Vital Signs
Temp Pulse Resp BP Pulse Ox
97.5 F 67 19 125/55 97
05/23/24 07:00 05/23/24 08:09 05/23/24 08:09 05/23/24 08:09 05/23/24 08:09
Intake and Output
05/22/24 05/23/24 05/24/24
06:59 06:59 06:59
Intake Total 489.2 / 489.2 506.6 / 525.4 37.6 / 37.6
Output Total 850 / 850 430 / 430
Balance -360.8 / -360.8 76.6 / 95.4 37.6 / 37.6
SaO2 97
Nasal Cannula flow liters per 4
minute
Physical Exam
General: Respiratory Distress (n) and Comfortable
HEENT: Normocephalic and Anicteric
Cardiovascular: Regular Rhythm, Murmur and Peripheral Edema
Respiratory: Clear (Diminished breath sounds at both bases and rare crackles), Wheeze (n), Crackles (Rare crackles), Rhonchi (n), Non-Labored Respirations, Accessory Resp Muscle Use (n) and Stridor (n)
GI: Soft, Non Distended and Non Tender
Neurology: Awake, Alert and No Motor Deficits
Skin: Warm, Good Color, Cyanosis (n), Jaundice (n), Rash and Other (Icteric)
Labs/Micro/Reports
Lab Data
05/23/24 03:49
05/23/24 03:49
Microbiology
05/22/24 04:25 Blood/Venous Blood Culture - Preliminary
No Growth in 24 hours- Final report to follow
05/19/24 11:55 Pleural Fluid Body Fluid Culture - Final
No Growth After 72 Hours
05/19/24 11:55 Pleural Fluid Gram Stain - Final
05/18/24 08:25 Blood/Venous Blood Culture - Preliminary
Enterococcus faecium - VRE
05/18/24 08:25 Blood/Venous Gram Stain - Preliminary
05/21/24 14:46 Blood/Venous Blood Culture - Preliminary
Positive culture in progress
05/21/24 14:46 Blood/Venous Gram Stain - Preliminary
05/20/24 10:23 Blood/Venous Blood Culture - Preliminary
Enterococcus faecium - VRE
05/20/24 10:23 Blood/Venous Gram Stain - Preliminary
05/17/24 13:59 Pleural Fluid Body Fluid Culture - Final
No Growth After 72 Hours
05/17/24 13:59 Pleural Fluid Gram Stain - Final
[2024-05-23] MEDS: LANTUS SC (10:02)
--- NOTE | 2024-05-23 10:15 | W.PN.ID1 ---
Date of Service
Date of Service: May 23, 2024
Today's Communication
Patient is actively dying in my opinion with uncontrolled, multidrug resistant infection and metastatic cholangiocarcinoma
Spoke with patient and , they agree with transition to hospice at this time
Stopped antibiotics and notified IM and Pulmonary services
Assessment / Plan
Leukocytosis
Bacteremia
-Admission blood cultures with Klebsiella pneumoniae.
-Blood cultures on 05/18 positive for Vanc/Amp resistant Enterococcus.
-Repeat bcx 05/20 remains positive VRE
Periportal fluid collection
- suspect they are infected given history and presentation
Nausea/vomiting
- improved
Bilateral pleural effusions
- s/p thoracentesis
- cx neg
Metastatic Cholangiocarcinoma- hx stent
Clinical sepsis
- blood cultures with Klebsiella and Enterococci; suspect GI source.
Transaminitis
Hyperbilirubinemia
A-fib
GERD
HTN
Dyslipidemia
NIDDM
Depression
Sleep apnea (on CPAP)
Hx pericarditis
Renal insufficiency
Ascites
Anemia
Recommendations:
Patient is actively dying in my opinion with uncontrolled, multidrug resistant infection and metastatic cholangiocarcinoma
Spoke with patient and , they agree with transition to hospice at this time
Stopped antibiotics and notified IM and Pulmonary services
����������������������������������������������������������
Chief Complaint
-: Clinical Sepsis, Pneumonia and Bacteremia
Subjective / Review of Systems
afebrile
pressor requirements ongoing
progressive leukocytosis, plt actually a bit improved
L shift worsening
cr stable
progressive hyperbilirubinemai, overall transaminitis progressed
patient actively dying, he denies pain at this time, only fatigue, would like to spend the time that he has with his family
Vital Signs / Physical Exam
Vital Signs
Vital Signs
Temp Pulse Resp BP Pulse Ox
97.5 F 67 19 125/55 97
05/23/24 07:00 05/23/24 08:09 05/23/24 08:09 05/23/24 08:09 05/23/24 08:09
Physical Exam
Constitutional: Acutely Ill, Chronically Ill and Toxic
Cardiovascular: Regular Rate
Pulmonary: Symmetric and Non Labored
Gastrointestinal: Non Tender and Non Distended
Skin: Warm, Dry and Jaundice; Negative Rash
Lines: Port (accessed)
Objective Data
Lab Data
Lab Results
05/23/24 03:49
05/23/24 03:49
PT 15.7 Sec (11.4-14.6) H 05/17/24 05:53
INR 1.26 05/17/24 05:53
APTT 30.5 Sec (23.4-35.0) 05/17/24 05:53
Estimated Creat Clear 43 ml/min 05/23/24 03:49
Lactic Acid Cancelled 05/17/24 17:40
Total Bilirubin 22.5 mg/dl (0.2-1.3) H* 05/23/24 03:49
AST 595 U/L (17-59) H* 05/23/24 03:49
ALT 323 U/L (0-50) H 05/23/24 03:49
Alkaline Phosphatase > 2400 U/L (38-126) H 05/23/24 03:49
Most recent labs reviewed.
Blood Culture Preliminary 05/22/24-59
Enterococcus faecium - [place]RE
[place] [id number] on 05/22/24 at 0818 by [facility]
Organism 1 Enterococcus faecium - VRE
1. Enterococcus faecium - VRE
M.I.C. RX
--------- ---
Ampicillin >8 R
Ciprofloxacin >2 R
Daptomycin >4 R
Gentamicin Synergy Screen <=500 S
Linezolid 2 S
Levofloxacin >4 R
Tetracycline >8 R
Vancomycin >16 R
Micro Results:
05/21/24 14:46 Blood Culture - Preliminary
Blood/Venous Enterococcus faecium - VRE
Gram Stain - Preliminary
05/22/24 04:25 Blood Culture - Preliminary
Blood/Venous No Growth in 24 hours- Final report to follow
05/23/24 03:49 Blood Culture - Pending
Blood/Venous
05/19/24 11:55 Body Fluid Culture - Final
Pleural Fluid No Growth After 72 Hours
Gram Stain - Final
05/18/24 08:25 Blood Culture - Preliminary
Blood/Venous Enterococcus faecium - VRE
Gram Stain - Preliminary
05/20/24 10:23 Blood Culture - Preliminary
Blood/Venous Enterococcus faecium - VRE
Gram Stain - Preliminary
05/17/24 13:59 Body Fluid Culture - Final
Pleural Fluid No Growth After 72 Hours
Gram Stain - Final
05/17/24 01:21 Blood Culture - Final
Blood/Venous Klebsiella pneumoniae
Gram Stain - Final
05/17/24 06:14 MRSA Screen - Final
Nose No Methicillin Resistant Staphylococcus aureus isolated.
Imaging:
05/19/2024 CT abdomen/pelvis without contrast lack of IV contrast significantly limits examination. A periportal fluid attenuation focus likely corresponds to the finding on the recent prior abdominal ultrasound. Bile duct stents appear
well-positioned. Mild abdominal ascites. Patchy airspace opacities in the lingula and left lower lobe
CXR (05/17/2024): Official report pending. Film personally viewed and suggest a left upper lobe and right middle lobe infiltrate.
05/17/2024 CT chest: Official report pending. Bilateral pleural effusions noted. Significant atelectasis noted secondary to the effusions. Pneumonia suspected.
Care Review
Plan reviewed with: Physician (Dr Mock and Dr Lawrence - hospice)
--- NOTE | 2024-05-23 12:17 | W.PN.UPDATE ---
Update Note
Progress Note Update
Discussed with Dr. Garrison. Patient and family wants Hospice.
Order placed.
Meds except for comfort stopped.
[2024-05-23] MEDS: NOVOLOG FLEXPEN-LOW RESISTANCE SC ×2 (12:37→15:38)
[2024-05-23] MEDS: DILAUDID 0.5 MG IV ×4 (12:47→21:11)
--- NOTE | 2024-05-23 13:04 | CM ---
Addendum entered by Janet Marie RN 05/23/24 15:56:
salad counter attendant met with patient. Patient not GIP appropriate at this time. Hospice will remain available for support.
Addendum entered by Janet Marie RN 05/23/24 13:19:
CM met with patient and in room. Patient's and patient are agreeable to Hospice. CM updated resource conservationist RN that patient's is in room and looking forward to speak with hospice clinical marketer.
Original Note:
CM received consult for hospice. CM updated resource conservationist salad counter attendant . Referral placed in Care Port.
--- NOTE | 2024-05-23 13:35 | HOSPNOTE ---
Met with spouse and discussed hospice and philosophy. Offered support and discussed GIP VS hospice at home. Spouse is in agreement with hospice philosophy. Does not meet GIP criteria at this time, will continue to follow daily and provide support.
--- NOTE | 2024-05-23 16:05 | CHAP ---
Visited Mr. Villaseñor at 12:40, per nurse request. He was resting, able to respond with a word or two, and indicated he is accepting and at peace. , Brea, was at bedside. She is strong, but feels the sadness deeply. Emotional support provided;
prayer and prayer blanket were declined. Their two sons visited earlier. Pastoral Care team remains available.
[2024-05-23] MEDS: FLUSH (NSS) 2 FLUSH IV (18:13)
[2024-05-24] MEDS: DILAUDID 0.5 MG IV (00:13)
--- NOTE | 2024-05-24 00:35 | W.PN.UPDATE ---
Update Note
Progress Note Update
Patient in pain and seems uncomfortable in bed. Patient currently on PRN Dilaudid for comfort that received with no relief of pain. at bedside and requested to start the drip for providing more comfort for her . Morphine drip was started
after discussed with the .
[2024-05-24] MEDS: MORPHINE 100 IV (01:08)
[2024-05-24] MEDS: MORPHINE SULFATE 2 MG IV ×3 (01:25→10:38)
[2024-05-24 07:05] VITALS: BP 81/43
[2024-05-24] MEDS: NOVOLOG FLEXPEN-LOW RESISTANCE SC ×2 (07:18→11:59)
--- NOTE | 2024-05-24 08:27 | PN.DE.MGMTRT ---
Insulin Management
- -
05/24/2024: Diabetes Management Follow up:
Patient admitted with SOB, N/V 2/2 Acute Hypoxic respiratory failure due to PNA and Sepsis.
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
insufficiency, Ascites, Anemia and NIDDM.
A1C 5% (was 7.8% in 12/2023), Cr 1.4, eFGR 52.09. According to the pt's - Brea, pt was taking Glipizide 2.5mg in AM, 5mg in PM, Metformin 1000mg BID and Actos 15mg daily prior to admission. NOT Glargine 14 units @ HS and Lispro SS as noted in
his chart
Pt has been transitioned to Hospice care at this time due to uncontrolled, multidrug resistant infection and metastatic cholangiocarcinoma.
All insulin and accuchecks have been discontinued to promote comfort.
Diabetes team will sign off at this time.
Diabetes History
- -
Type of Diabetes: 2
Pre-Admission Diabetes Regimen
Lab Results
Hemoglobin A1c 5.0 % (4.0-5.6) 05/17/24 05:53
Insulin Pump Settings
IP Diabetes Regimen
Meal type: Dinner
Meal type: Breakfast
Amount consumed: 0
Amount consumed: Patient refused
Patient Education
[2024-05-24] MEDS: PROTONIX PO (08:49)
[2024-05-24] MEDS: DESENEX/MITRAZOL/ZEASORB 1 APPLIC TOPICAL ×2 (08:50→20:31)
--- NOTE | 2024-05-24 10:51 | W.PN.PAL2 ---
Today's Communication
-
Discussed with attending
Assessment / Plan
-
Assessment/Plan:
Appropriate for comfort care/hospice at [facility] level of care.
Hospice liason to meet with family today
no active symptoms at this time.
Family thankful for support from hospital team
Reason for Admission
Illness Course/HPI
Mr. 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 He was being treated with cis/gem chemotherapy until February of this year,
further chemotherapy has been on hold due to hospitalizations and recurrent infections. His oncologist is Dr. Mejia at [place]. Patient was recently admitted to another hospital at the beginning of the month for cholangitis/sepsis, and then
transferred to [facility] rehab. He was readmitted to hospital on 05/17 with shortness of breath and abdominal pain, and was found to have septic shock and was admitted to the ICU. He is currently still on vasopressors, requiring antibiotics, and
had thoracentesis on 05/19 for pleural effusions which were positive for malignancy.
Palliative Care Follow up
Over the weekend patient had worsening labs, abdominal pain. Family opted to transition to comfort care. morphine drip was started overnight. Patient seen in the room with and son marianela present. patient is now unresponsive, but appears
comfortable, no active symptoms of pain or discomfort observed. symptoms of pain managed with morphine drip per protocol.
is thankful for the support received, and comfortable with decision to transition to comfort care. they will be meeting with hospice liason later today, eligible for [facility] level of care at this time.
Received visit from hospital aviation safety inspector yesterday.
Functional Status & Support Systems
Current Functional Status:
Dependant for all care at this time
ADLS: Significant Assistance
IADLS: Significant Assistance
Review of Advanced Directives
Advanced Care Documentation Status: Complete
Type of Documentation: Living Will
Location of Advanced Care Documentation: Available in [facility]
Surrogate Decision Maker (name & contact): Spouse Brea
Preferences Regarding Resuscitation at End of Life: DNR
Goals of Care Discussion
-
Patient able to participate in discussion at time of visit: No
Illness Severity & Prognosis Discussion
Family's awareness/understanding of illness: Terminal
Patient & family understanding of treatment/care options:
Comfort care/hospice
Pain & Symptom Assessment
[place] Symptom Scale 0=none, 10=worst
Pain: 0 (no nonverbal signs of pain at this time. appears comfortable)
Objective Data
-
Objective Data:
Vital Signs
Temp Pulse Resp BP Pulse Ox
97.6 F 65 18 81/43 96
05/23/24 23:01 05/24/24 07:05 05/24/24 07:05 05/24/24 07:05 05/24/24 07:05
Laboratory Results
05/24/24 06:00
05/24/24 06:00
PT 15.7 Sec (11.4-14.6) H 05/17/24 05:53
INR 1.26 05/17/24 05:53
APTT 30.5 Sec (23.4-35.0) 05/17/24 05:53
Hemoglobin A1c 5.0 % (4.0-5.6) 05/17/24 05:53
Total Protein Cancelled 05/24/24 06:00
Albumin Cancelled 05/24/24 06:00
Palliative Performance Scale
Palliative Performance Scale:
PPS Level Ambulation Activity & Evidence of Disease Self Care Intake Conscious Level
100% Full Normal Activity & Work; Full Intake Full
No Evidence of Disease
90% Full Normal Activity & Work; Full Normal Full
Some Evidence of Disease
80% Full Normal Activity with Effort Full Normal or Full
Some Evidence of Disease Reduced
70% Reduced Unable Normal Job/Work Full Normal or Full
Significant Disease Reduced
60% Reduced Unable Hobby/Housework Occasional Normal or Full or Confusion
Significant Disease Assistance Reduced
50% Mainly Sit/Lie Unable to do Any Work Considerable Normal or Full or Confusion
Extensive Disease Assistance Req'd Reduced
40% Mainly in Bed Unable to do Most Activity Mainly Assistance Normal or Full or Drowsy;
Extensive Disease Reduced +/- Confusion
30% Totally Bed Unable to do Any Activity Total Care Normal or Full or Drowsy;
Bound Extensive Disease Reduced +/- Confusion
20% Totally Bed Bound Unable to do Any Activity Total Care Minimal to Full or Drowsy;
Extensive Disease Sips +/- Confusion
10% Totally Bed Bound Unable to do Any Activity Total Care Mouth Care Drowsy or Coma;
Extensive Disease Only +/- Confusion
0%
PPS Score Level: 20%
Physical Exam
-
General: Unresponsive and No Apparent Distress (comfortable on morphine drip. )
Respiratory: Non Labores Respirations
Care Reviewed
Data Reviewed
Reviewed with: Family
Time
Start Date: 05/24/24
Start Time: 09:20
Stop Date: 05/24/24
Stop Time: 09:35
--- NOTE | 2024-05-24 11:23 | HOSPNOTE ---
Spoke with family at length about comfort care and hospice. The patient was started on a morphine drip and appears comfortable at this time. Emotional support given. If patient requires PRN doses per protocol will admit inpatient hospice tomorrow
05/25. Spoke with attending and in agreement with plan.
--- NOTE | 2024-05-24 12:28 | W.PN.HOSP.TC ---
Today's Communication/Plan
-
Comfort care
Orders adjusted
Assessment / Plan
Assessment / Plan
HPI: 74 yo M with [facility] ERCP/stone extraction, stent placement and biopsy Sep 2023, subsequently diagnosed with poorly differentiated adeno Ca / cholangiocarcinoma Oct 2023; p/w SOB.
ASSESSMENT
# Septic shock with Klebsiella bacteremia, source possibly from acute cholangitis
blood culture positive for Klebsiella; Enterococcus Faecium VRE
s/p R thoracentesis 05/17, removed 1050 cc of clear miya pleural fluid. Pleural fluid exudative - adenocarcinoma
s/p L thoracentesis 05/19, removed 1000 cc of clear miya pleural fluid.
# Acute hypoxic RF, improving
Restrictive lung disease and Decreased diffusing capacity.
Bilateral pleural effusions, right side positive for malignancy
#Metastatic poorly differentiated gallbladder adenocarcinoma vs cholangiocarcinoma -s/p ERCP with biliary stent placement at [place] 04/26/2024
Last chemotherapy was February 2024. Since then he has had repeated admissions and not able to get any.
Elevated LFT suspect 2/2 cholangiocarcinoma
# Acute anemia , unclear cause
# Hypomagnesemia
# Thrombocytopenia
# Suspect anemia of chronic disease-malignancy
# Paroxysmal atrial fibrillation
# Chronic heart failure with preserved ejection fraction
# SUDHIR
# Hyperlipidemia
# Unstageable pressure injury Left hip and left heel
# Mild hyponatremia-resolved
# Benign Hypertension
# DMT2
#J CARLOS
# Moderate protein calorie malnutrition
# Code: DNR
PLAN
On comfort care now
at bed side
D/W RN
D/W greenhouse florist
D/W Palliative care
On Morphine gtt started overnight as he was not getting relief with prn (per )
PRN Ativan ordered
He looks comfortable now.
Continue same treatment
Anticipated Discharge: > 48 hours
Subjective/Interval History
-
Date of Service: May 24, 2024
Objective Data
-
Labs:
Laboratory Results
05/24/24
06:00
WBC Cancelled
Hgb Cancelled
Hct Cancelled
Plt Count Cancelled
Sodium Cancelled
Potassium Cancelled
Chloride Cancelled
Carbon Dioxide Cancelled
BUN Cancelled
Creatinine Cancelled
Glucose Cancelled
Calcium Cancelled
Total Bilirubin Cancelled
AST Cancelled
ALT Cancelled
Alkaline Phosphatase Cancelled
Vital Signs:
Vital Signs
Temp Pulse Resp BP Pulse Ox
97.6 F 65 18 81/43 96
05/23/24 23:01 05/24/24 07:05 05/24/24 07:05 05/24/24 07:05 05/24/24 07:05
I&O
05/23/24 05/24/24 05/25/24
06:59 06:59 06:59
Intake Total 506.6 / 525.4 60.1 / 60.1
Output Total 430 / 430 100 / 100
Balance 76.6 / 95.4 -39.9 / -39.9
[2024-05-24] MEDS: ATIVAN 1 MG IV ×2 (12:34→20:27)
--- NOTE | 2024-05-24 14:15 | CM ---
Currently on comfort care. Plan to begin inpatient hospice on 05/25/24.
[2024-05-24 19:34] VITALS: BP 97/42
[2024-05-24] MEDS: NSS (PRESERVATIVE FREE) 0.5 ML IV (20:26)
[2024-05-24] MEDS: ROBINUL 0.2 MG IV (21:10)
[2024-05-25] MEDS: NSS (PRESERVATIVE FREE) 0.5 ML IV (00:38)
[2024-05-25] MEDS: ATIVAN 1 MG IV (00:38)
[2024-05-25 07:10] VITALS: BP 91/43
[2024-05-25] MEDS: PROTONIX PO (08:58)
[2024-05-25] MEDS: DESENEX/MITRAZOL/ZEASORB TOPICAL (08:58)
--- NOTE | 2024-05-25 12:45 | CM ---
Patient remains on comfort measures.
--- NOTE | 2024-05-25 14:04 | W.PN.UPDATE ---
Update Note
Progress Note Update
called to see pt as he .
Patient pronounced .
Family at bedside.
Discussed with nursing and hospice nurse
--- NOTE | 2024-05-25 14:05 | PTCARENOTE ---
at 1:40 pm this RN was called in to the patient's room by his family to check if the patient is no longer breathing. patient had no pulse and no heart beat on auscultation. MD called to pronounce the . hospice nurse contacted. family at the
bedside. emotional support and bereavement tray offered.
--- NOTE | 2024-05-25 14:06 | W.PN.DEATH ---
Addendum entered and electronically signed by Justin Mock MD 05/25/24 16:15:
Dictation- [id number]
Original Note:
Pronouncement of
-
Called to see patient to pronounce.
No spontaneous heart tones or respirations noted.
Patient not responsive to verbal stimuli.
Patient is pronounced .
Time of : 13:40
Date of : 05/25/24
Cause of : Klebsiella sepsis
Family Notified: Yes
--- NOTE | 2024-05-25 15:01 | CM ---
Patient . Pronounced at 1:40PM.
== END 2024-05-25 13:40 | disposition expired | DRG 871 ==
LOC: 2 NORTH 03:08
PROVIDERS: Clinical Nurse Specialist Family Health; Internal Medicine; Internal Medicine Critical Care Medicine; Nurse Practitioner Primary Care; ADMITTING PHYSICIAN Internal Medicine; ATTENDING PHYSICIAN Hospitalist; CONSULT PHYSICIAN Internal Medicine Cardiovascular Disease; CONSULT PHYSICIAN Internal Medicine Critical Care Medicine; CONSULT PHYSICIAN Internal Medicine Endocrinology, Diabetes & Metabolism; CONSULT PHYSICIAN Internal Medicine Hospice and Palliative Medicine; CONSULT PHYSICIAN Internal Medicine Infectious Disease; EMERGENCY PHYSICIAN Emergency Medicine; FAMILY PHYSICIAN Internal Medicine; OTHER PHYSICIAN Internal Medicine Hematology & Oncology
DX: A41.59 Other Gram-negative sepsis (principal); I50.21 Acute systolic (congestive) heart failure; J69.0 Pneumonitis due to inhalation of food and vomit; J96.01 Acute respiratory failure with hypoxia; R65.21 Severe sepsis with septic shock; C22.1 Intrahepatic bile duct carcinoma; E44.0 Moderate protein-calorie malnutrition; I42.9 Cardiomyopathy, unspecified; K83.09 Other cholangitis; B96.1 Klebsiella pneumoniae [K. pneumoniae] as the cause of diseases classified elsewhere; I11.0 Hypertensive heart disease with heart failure; D69.6 Thrombocytopenia, unspecified; L89.626 Pressure-induced deep tissue damage of left heel; L89.220 Pressure ulcer of left hip, unstageable
CPT/HCPCS: 88305; 32555; 71045; 71275; 74176; 76604; 76700; 80048; 80053; 80202; 82533; 82550; 82945; 82962; 83036; 83605; 83615; 83735; 83880; 83986; 84145; 84157; 84484; 85014; 85018; 85025; 85379; 85610; 85730; 86850; 86900; 86901; 86920; 87015; 87040; 87070; 87077; 87149; 87186; 87205; 87811; 88112; 88341; 88342; 89051; 93005; 93306; 96365; 97163; 97167; 99285; J0878; P9016; Q9967